=== PATIENT | male | born 1940 | race Two or more races ===

== ENCOUNTER 2016-09-29 08:35 | Inpatient (IN) | payer BC, MEDICARE ==
[2016-09-29] VITALS (7 sets, daily range): BP systolic 84–153; BP diastolic 47–80
[~2016-09-29] VITALS: Ht 170.2 cm; Wt 68.9 kg
[2016-09-29] MEDS ORDERED: METOPROLOL SUCC25 MG ORAL (09:06)
[2016-09-29] MEDS ORDERED: METFORMIN HCL850 M1 ORAL (09:06)
[2016-09-29] MEDS ORDERED: ASPIR-LOW81 MG ORAL (09:06)
[2016-09-29] MEDS ORDERED: PRAVASTATIN SOD20 M1 ORAL (09:06)
[2016-09-29] MEDS ORDERED: LORazepam Inj 2mg/ml 1ml IV ONE (09:15)
[2016-09-29 09:20] LABS: MEAN CORPUSCULAR HEMOGLOBIN 30.9 PG (27.0-31.0); MEAN CORPUSCULAR HGB CONC 34.2 G/DL (32.0-36.0); MEAN CORPUSCULAR VOLUME 90 FL (80-99); MEAN PLATELET VOLUME 8.2 FL (6.5-10.1); PLATELET COUNT 238 K/UL (150-450); RED BLOOD COUNT 5.17 M/UL (4.70-6.10); RED CELL DISTRIBUTION WIDTH 11.8 % (11.6-14.8)
[2016-09-29 09:29] LABS: ALANINE AMINOTRANSFERASE 140 U/L (3-41); ANION GAP 26 (5-15); ASPARTATE AMINO TRANSFERASE 87 U/L (5-40); CALCIUM 9.8 mg/dL (8.6-10.2); CARBON DIOXIDE 20 mEQ/L (20-30); CHLORIDE 85 mEQ/L (98-107); CREATININE 1.5 mg/dL (0.7-1.2); HEMOLYSIS 3; SODIUM 131 mEQ/L (135-145); TOTAL PROTEIN 7.9 g/dL (6.6-8.7)
[2016-09-29 09:32] LABS: TROPONIN I < 0.30 ng/mL (<=0.30)
[2016-09-29] MEDS ORDERED: Metoprolol 5mg/5ml Inj IVP STA (09:39)
--- NOTE | 2016-09-29 09:39 | Emergency Room Report ---
History of Present Illness General Chief Complaint: Abdominal Pain Source: Patient, Family Member Present Illness HPI 75 YO M with DM, HTN, HLD presents with a changing chief complaint. Patient is walk-in with . First endorses right side abd pain. While walking to stretcher, starts shaking, now c/o right sided chest pain, then left sided chest pain. Denies nausea/vomiitng, fever/chills, diarrhea, recent sick contacts, foreign travel. Did not take any meds this morning. Glucose is 230. Allergies: Coded Allergies: No Known Allergies (Unverified , 09/29/16) Patient History Past Medical History: DM, HTN, other - HLD Past Surgical History: none Pertinent Family History: none Social History: Denies: alcohol use, drug use, smoking Immunizations: UTD Reviewed Nursing Documentation: PMH: Agreed, PSxH: Agreed Nursing Documentation-PMH Past Medical History: No History, Except For Hx Hypertension: Yes Hx Diabetes: Yes Review of Systems All Other Systems: negative except mentioned in HPI Physical Exam Vital Signs Date Time Temp Pulse Resp B/P Pulse Ox O2 Delivery O2 Flow Rate FiO2 09/29/16 08:42 97.3 110 18 128/80 97 Room Air Sp02 EP Interpretation: reviewed, abnormal General Appearance: normal inspection, well appearing, alert, GCS 15, non-toxic , mild distress Head: normocephalic, atraumatic Eyes: bilateral eye EOMI, bilateral eye PERRL ENT: normal ENT inspection, hearing grossly normal, normal voice Neck: normal inspection, full range of motion, supple, no bony tend Respiratory: normal inspection, lungs clear, normal breath sounds, no respiratory distress, no retraction, no wheezing Cardiovascular #1: regular rate, rhythm, no edema, no gallop, no JVD, tachycardia Gastrointestinal: normal inspection, normal bowel sounds, soft, no guarding, no hernia, no pulsatile mass, no rebound, other - Right sided abd ttp. No rebound or guarding Rectal: deferred Genitourinary: no CVA tenderness Musculoskeletal: normal inspection, back normal, normal range of motion, Garrett' s Sign negative Neurologic: normal inspection, alert, oriented x3, responsive, cath lab tech III-XII nml as tested, motor strength/tone normal, speech normal Psychiatric: normal inspection, judgement/insight normal, mood/affect normal Procedures Critical Care Time Critical Care Time 45 minutes Care for 75 YOM with RUQ pain VS significant for tachycardia. Afebrile. Normotensive Labs: Leuks, elevated LFTs. Patient presumed septic. Possible acute chalo +/- cholangitis Care includes Abx, IVF, Consult with GenSurg and GI Care included sepsis order set for labs, 30cc/kg fluid resuscitation, initiation of IV antibiotics, tylenol PRN fever Care may include administration of vasopressors started to support failing circulatory system, includes frequent re-exam, interpretation of lab studies and consultation with hospitalist/marble setter. 45 minutes of critical care time was spent with this patient not including time spent performing separately reportable procedures. Medical Decision Making Medicare Attestation I Demarcus Hines MD hereby attest that the medical record entry for date of service, 08/07/16 accurately reflects signatures/notations that I made in my capacity as MD when I treated/diagnosed the above listed Medicare beneficiary. I attest that this information is true, accurate and complete to the best of my knowledge. I understand that any falsification, omission, or concealment of material fact may subject me to administrative, civil, or criminal liability. This patient warrants hospital admission for extreme of age and has a condition that cannot be treated as outpatient. Diagnostic Impression: Primary Impression: Abdominal pain Qualified Codes: R10.11 - Right upper quadrant pain Additional Impressions: Sepsis Qualified Codes: A41.9 - Sepsis, unspecified organism Cholecystitis Common bile duct (CBD) obstruction ER Course 75 YO M with chest pain/RUQ pain. Tachycardic to 130-140. Normotensive. No fever on rectal temp check. patient did NOT take oral metoprolol 25mg this morning DDx ACS, PNA, MSK pain for chest pain DDx colitis, appy, chalo for RUQ pain on exam PLAN: IV access, Labs, IVF, ECG, CTAP for RUQ pain, analgesia Will give patient's PO dose of metoprolol EKG Diagnostic Results Rate: tachycardiac Rhythm: NSR ST Segments: no acute changes ASA given to the pt in ED: No Rhythm Strip Diag. Results EP Interpretation: yes Rate: 120 Rhythm: NSR, other - PVCs Chest X-Ray Diagnostic Results EP Interpretation: Yes Findings: no consolidation, no effusion, no pneumothorax, no acute cardiopulmonary disease Number of Views: 1 Reevaluation Time: 09:58 Last Vital Signs Date Time Temp Pulse Resp B/P Pulse Ox O2 Delivery O2 Flow Rate FiO2 09/29/16 09:09 99.9 134 28 128/80 97 Room Air Status: improved Reevaluation Impression labs: elevated leuks. Normal H&H. Elevated LFTs LEAH Tachycardia improved s/p IV lopressor. Will also give patient's PO dose metoprolol ECG is sinus tach. Troponin 0. Low suspicion for ACS but will need serial troponin Concern now for biliary process, possibly acute chalo Will do CTAP without contrast given LEAH Empiric Vanc/zosyn for SIRS/sepsis 1110am CTAP: Acute chalo with CBD obstruction. CBD 10-12. ?cholangitis Call placed to [facility] and Dr Mosher at 11am 1120am: Dr Millan saw patient for GenSurg - planned possible chalo removal tomorrow Recommends GI remove stone first Endorsed to Dr Wood for admission at 1130am, tele bed. Consulted GI Dr Jarvis as requested by Dr Wood at 1134 for CB decompression Patient remains stable in the ED. Disposition: ADMITTED INPATIENT Condition: Critical Referrals: NOT CHOSEN IPA/,REFERRING (PCP) DEMARCUS HINES M.D. Sep 29, 2016 09:39
[2016-09-29 09:40] LABS: CKMB < 1.5 ng/mL (< 6.7)
[2016-09-29 09:51] LABS: BILIRUBIN,DIRECT 3.8 mg/dL (0.1-0.3)
[2016-09-29] MEDS ORDERED: Zosyn 3.375gm inj ONE (09:56)
[2016-09-29] MEDS ORDERED: Morphine Sulfate 2mg/ml Inj IVP ONE (10:00)
[2016-09-29] MEDS ORDERED: Vancomycin 1 GM in NS 275 ML IVPB ONE (10:00)
[2016-09-29] MEDS ORDERED: Metoprolol 25mg tab ORAL ONE (10:00)
[2016-09-29] MEDS ORDERED: Piperacillin/Tazobactam 3.375 GM in NS 110 ML IVPB ONE (10:00)
[2016-09-29] MEDS ORDERED: Vancomycin 1gm inj IVPB ONE (10:10)
[2016-09-29 10:14] LABS: BAND NEUTROPHILS % (MANUAL) 5 % (0-8); BASOPHILS % (MANUAL) 0 % (0-2); EOSINOPHILS % (MANUAL) 0 % (0-3); LYMPHOCYTES % (MANUAL) 3 % (20-45); NEUTROPHILS % (MANUAL) 85 % (45-75); PLATELET ESTIMATE ADEQUATE; PLATELET MORPHOLOGY NORMAL; TOTAL CELLS COUNTED 100
[2016-09-29 11:04] LABS: REFLEX LACTIC ACID YES OR NO YES
--- NOTE | 2016-09-29 11:11 | Diagnostic Imaging Report ---
Indication: Abdominal pain Technique: Continuous helical transaxial imaging of the abdomen and pelvis was obtained from the lung bases to the pubic symphysis during intravenous contrast administration. Coronal 2-D reformats were also obtained. Study obtained in a Siemens sensation [address] Total Dose length Product (DLP): [address] Dose Index Volume (CTDIvol): 17 mGy Comparison: None Findings: There is abnormal enhancement of the gallbladder wall which is slightly distended. There is pericholecystic soft tissue stranding indicative of inflammation. The common bile duct is dilated and there is some enhancement of the wall of the CBD and intrahepatic ducts. The intrahepatic ducts are only minimally distended. There are filling defects present in the distal part of the CBD suspicious for choledocholithiasis. CBD diameter is about 10-12 mm. There is no intrahepatic or extrahepatic abscess. There is no free air or free fluid. There is mild distention of small bowel loops in the upper abdomen probably reactive ileus. Normal retrocecal appendix demonstrated. Aorta and iliac arteries show moderate mural calcification. There is a small incidental left adrenal nodule 1.1 cm. This is probably an adenoma. Evaluation with MR suggested on a nonemergent basis. There is a cyst in the right kidney projecting posteriorly measuring 1.7 cm. There is no hydronephrosis. There is a tiny cyst in the anterior left kidney measuring 7 mm. No abnormalities of the spleen or pancreas are identified. Few diverticula are noted in the colon. Urinary bladder is nondistended. The prostate gland is prominent measuring 5.8 x 4.1 x 5.0 cm. Degenerative changes of the lumbar spine are noted. Vacuum phenomenon narrowing of some of the intervertebral discs and multilevel mild retrolisthesis noted at L2-3, 34 and L4-5. Minimal anterolisthesis at L5-S1. Pars interarticularis defect noted bilaterally at L5. Impression: Suspicion of choledocholithiasis in the distal CBD with mild biliary ductal dilatation. Superimposed cholangitis could be present. Acute cholecystitis also suspected as discussed above, probably on the basis of the CBD obstruction. Coexistent cystic duct obstruction could be present. Few, mildly distended jejunum in the epigastric region likely reactive ileus. Normal retrocecal appendix. Mild diverticulosis of the colon Atherosclerotic vascular disease 1.1 cm low-density left adrenal nodule probably adenoma. Suggest nonemergent outpatient MRI workup. 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 Grade 1 spondylolisthesis L5 on S1. Critical value communication. Findings were discussed via telephone with Dr. Leahy in the E.D. at 11 AM, 09/29/[address] scanner at [facility] is accredited by the [employer] and the scans are performed using protocols designed to limit radiation exposure to as low as reasonably achievable to attain images of sufficient resolution adequate for diagnostic evaluation.
[2016-09-29 11:41] LABS: APPEARANCE,URINE SLIGHTLY CLOUDY; KETONES,URINE NEGATIVE (NEGATIVE); LEUKOCYTE ESTERASE ,URINE 1+ (NEGATIVE); NITRITE,URINE POSITIVE (NEGATIVE); PH,URINE 5 (4.5-8.0); PROTEIN,URINE 3+ (NEGATIVE); UROBILINOGEN,URINE 8 MG/DL (0.0-1.0)
[2016-09-29 11:52] LABS: BACTERIA,URINE FEW /HPF; SQUAMOUS EPITHELIAL CELL,UR OCCASIONAL /LPF (NONE/OCC)
[2016-09-29 11:53] LABS: ICTOTEST POSITIVE
--- NOTE | 2016-09-29 12:21 | Consultation ---
Consult Note Assessment/Plan ID [facility] # [id number] ROSLYN KEN M.D. Sep 29, 2016 12:21
--- NOTE | 2016-09-29 12:24 | Consultation ---
History of Present Illness General Date patient seen: Sep 29, 2016 Chief Complaint: Abdominal Pain Reason for Consultation: acute cholecystitis; choledocholithiasis Present Illness HPI 75 year old male with multiple medical comorbidities including DM, HTN, dyslipidemia, presents to ED today complaining of worsening abdominal pain. as per patient, he was in his normal state of health until 4 days ago when he began to note some vague abdominal pain. since pain has worsened so he came to ED for evaluation. pain described as cramping pain that began in the mid abdomen and at times is focal in the RUQ. Currently feels as if its generalized to mid abdominal cramping. pain associated with nausea but no emesis. +flatus. last BM recent and normal. Has never had prior episodes that he can remember. When seen in ED was laying in gurney complaining of cramping that is mildly better after being given pain medication. CT scan ordered consistent with acute cholecystitis and likely choledocholithiasis. Leukocytosis of 20k. t bili >5. surgery called to evaluate. Allergies: Coded Allergies: No Known Allergies (Unverified , 09/29/16) Medication History Scheduled Aspirin* (Aspir-Low*), 81 MG ORAL DAILY, (Reported) Metformin Hcl* (Metformin Hcl*), 850 MG ORAL TID, (Reported) Metoprolol Succinate* (Metoprolol Succinate*), 25 MG ORAL BID, (Reported) Pravastatin Sod* (Pravastatin Sod*), 20 MG ORAL BEDTIME, (Reported) Patient History History Provided By: Patient Healthcare decision maker Resuscitation status Advanced Directive on File Past Medical/Surgical History Past Medical/Surgical History: (1) Cholecystitis (2) Sepsis (3) Abdominal pain (4) Common bile duct (CBD) obstruction Review of Systems Constitutional: Denies: chills, fever, malaise, no symptoms, other, see HPI, sweats, weakness Eye: Denies: acuity changes, blurred vision, discharge, double vision, eye pain , no symptoms, nose congestion, nose pain, other, see HPI, tearing ENT: Denies: ear discharge, ear pain, hearing loss, mouth pain, nasal discharge , no symptoms, nose congestion, nose pain, other, see HPI, throat pain, throat swelling Respiratory: Denies: ASHRAF, cough, no symptoms, orthopnea, other, see HPI, shortness of breath, sputum, stridor, wheezing Cardiovascular: Denies: PND, chest pain, edema, no symptoms, other, palpitations, see HPI, syncope Gastrointestinal: Reports: abdominal pain, nausea Genitourinary: Denies: discharge, dysuria, frequency, hematuria, incontinence, no symptoms, other, pain, retention, see HPI, urgency, vag bleed/dc Musculoskeletal: Denies: back pain, gout, joint pain, joint swelling, muscle pain, muscle stiffness, no symptoms, other, see HPI Skin: Denies: change in color, change in hair/nails, dryness, lesions, no symptoms, other, rash, see HPI Psychiatric: Denies: HI, SI, anxiety, depressed feelings, emotional problems, hallucinations, no symptoms, other, prior hx, see HPI Neurological: Denies: dizziness, focal weakness, headache, no symptoms, numbness, other, paresthesia, see HPI, seizure, syncope, tingling, tremors Endocrine: Denies: excessive sweating, flushing, increased thirst, increased urine, intolerance to temperature, no symptoms, other, see HPI, unexplained weight loss Hematologic/Lymphatic: Denies: anemia, blood clots, diathesis, easy bleeding, easy bruising, no symptoms, other, see HPI, swollen glands All Other Systems: negative except mentioned in HPI Physical Exam General Appearance: WD/WN, no apparent distress Lines, tubes and drains: peripheral HEENT: normocephalic, atraumatic Neck: non-tender, supple Respiratory/Chest: normal breath sounds, no respiratory distress, no accessory muscle use Cardiovascular/Chest: normal peripheral pulses, normal rate, regular rhythm Abdomen: normal bowel sounds, soft, no organomegaly, distended, tender Extremities: normal range of motion Neurologic: lumite injector II-XII grossly normal, no motor/sensory deficits Last 24 Hour Vital Signs Date Time Temp Pulse Resp B/P Pulse Ox O2 Delivery O2 Flow Rate FiO2 09/29/16 12:09 98.0 101 28 /47 97 Room Air 09/29/16 11:02 98.0 101 28 /47 97 Room Air 09/29/16 10:43 99.9 09/29/16 10:08 134 128/80 09/29/16 09:45 134 128/80 09/29/16 09:09 99.9 134 28 128/80 97 Room Air 09/29/16 08:42 97.3 110 18 128/80 97 Room Air Laboratory Tests Test 09/29/16 09:00 09/29/16 10:20 09/29/16 11:10 White Blood Count 20.0 K/UL (4.8-10.8) H Red Blood Count 5.17 M/UL (4.70-6.10) Hemoglobin 16.0 G/DL (14.2-18.0) Hematocrit 46.8 % (42.0-52.0) Mean Corpuscular Volume 90 FL (80-99) Mean Corpuscular Hemoglobin 30.9 PG (27.0-31.0) Mean Corpuscular Hemoglobin Concent 34.2 G/DL (32.0-36.0) Red Cell Distribution Width 11.8 % (11.6-14.8) Platelet Count 238 K/UL (150-450) Mean Platelet Volume 8.2 FL (6.5-10.1) Neutrophils (%) (Auto) % (45.0-75.0) Lymphocytes (%) (Auto) % (20.0-45.0) Monocytes (%) (Auto) % (1.0-10.0) Eosinophils (%) (Auto) % (0.0-3.0) Basophils (%) (Auto) % (0.0-2.0) Differential Total Cells Counted 100 Neutrophils % (Manual) 85 % (45-75) H Lymphocytes % (Manual) 3 % (20-45) L Monocytes % (Manual) 7 % (1-10) Eosinophils % (Manual) 0 % (0-3) Basophils % (Manual) 0 % (0-2) Band Neutrophils 5 % (0-8) Platelet Estimate Adequate Platelet Morphology Normal Red Blood Cell Morphology Normal Sodium Level 131 mEQ/L (135-145) L Potassium Level 4.0 mEQ/L (3.4-4.9) Chloride Level 85 mEQ/L (98-107) L Carbon Dioxide Level 20 mEQ/L (20-30) Anion Gap 26 (5-15) H Blood Urea Nitrogen 14 mg/dL (7-23) Creatinine 1.5 mg/dL (0.7-1.2) H Estimat Glomerular Filtration Rate mL/min (>60) Glucose Level 255 mg/dL (74-106) H Calcium Level 9.8 mg/dL (8.6-10.2) Total Bilirubin 5.3 mg/dL (0.0-1.2) H Direct Bilirubin 3.8 mg/dL (0.1-0.3) H Aspartate Amino Transf (AST/SGOT) 87 U/L (5-40) H Alanine Aminotransferase (ALT/SGPT) 140 U/L (3-41) H Alkaline Phosphatase 327 U/L (40-129) H Total Creatine Kinase 51 U/L (38-174) Creatine Kinase MB < 1.5 ng/mL (< 6.7) Creatine Kinase MB Relative Index Troponin I < 0.30 ng/mL (<=0.30) Pro-B-Type Natriuretic Peptide 3401 pg/mL (0-450) H Total Protein 7.9 g/dL (6.6-8.7) Albumin 4.0 g/dL (3.5-5.2) Globulin 3.9 g/dL Albumin/Globulin Ratio 1.0 (1.0-2.7) Lipase 48 U/L (< 60) Lactic Acid Level 7.10 mmol/L (0.66-2.22) H Urine Color Brown Urine Appearance Slightly cloudy Urine pH 5 (4.5-8.0) Urine Specific [place] 1.010 (1.005-1.035) Urine Protein 3+ (NEGATIVE) H Urine Glucose (UA) 1+ (NEGATIVE) H Urine Ketones Negative (NEGATIVE) Urine Occult Blood 4+ (NEGATIVE) H Urine Nitrite Positive (NEGATIVE) H Urine Bilirubin 3+ (NEGATIVE) H Urine Ictotest Positive Urine Urobilinogen 8 MG/DL (0.0-1.0) H Urine Leukocyte Esterase 1+ (NEGATIVE) H Urine RBC 2-4 /HPF (0 - 0) H Urine WBC 5-10 /HPF (0 - 0) H Urine Squamous Epithelial Cells Occasional /LPF Urine Bacteria Few /HPF (NONE) Height (Feet): 5 Height (Inches): 2.00 Weight (Pounds): 150 Assessment/Plan Problem List: (1) Cholecystitis ICD Codes: K81.9 - Cholecystitis, unspecified SNOMED: 47958763, 89426166 (2) Common bile duct (CBD) obstruction ICD Codes: K83.1 - Obstruction of bile duct SNOMED: 45959918, [id number] (3) Abdominal pain ICD Codes: R10.9 - Unspecified abdominal pain SNOMED: 93227084 Qualifiers: Qualified Codes: R10.11 - Right upper quadrant pain (4) Sepsis ICD Codes: A41.9 - Sepsis, unspecified organism SNOMED: 06563324 Qualifiers: Qualified Codes: A41.9 - Sepsis, unspecified organism Assessment/Plan 75 M acute cholecystitis and likely choledocholithiasis. Afebrile, HD stable, leukocytosis, abnormal LFT's. CT findings as above. Exam as above. Recommend GI consultation - ?ERCP NPO with IV fluids IV Abx Trend labs ( WBC, LFT's) Will await GI input. Need to ensure clear CBD to schedule for cholecystectomy during this hospitalization. Thank you for this consultation. will follow with you. Pedrito Millan MD Sep 29, 2016 12:24
--- NOTE | 2016-09-29 12:45 | GI Initial Consult Note ---
Diaz,Sweta Leopoldo N.PJules 09/29/16 1245: History of Present Illness General Date patient seen: Sep 29, 2016 Time patient seen: 12:42 Reason for Hospitalization: Abdominal Pain Referring physician: BHARATH JONES Reason for Consultation: acute cholecystitis; choledocholithiasis Present Illness HPI 75 year old male with multiple medical comorbidities including DM, HTN, dyslipidemia, presents to ED today complaining of worsening abdominal pain. as per patient, he was in his normal state of health until 4 days ago when he began to note some vague abdominal pain. since pain has worsened so he came to ED for evaluation. pain described as cramping pain that began in the mid abdomen and at times is focal in the RUQ. Currently feels as if its generalized to mid abdominal cramping. pain associated with nausea but no emesis. +flatus. last BM recent and normal. Has never had prior episodes that he can remember. When seen in ED was laying in gurney complaining of cramping that is mildly better after being given pain medication. CT scan ordered consistent with acute cholecystitis and likely choledocholithiasis. Leukocytosis of 20k. t bili >5. surgery called to evaluate. GI CONSULT: HPI as noted above. GI consulted for choledocholithiasis evaluation. APCT reviewed Suspicion of choledocholithiasis in the distal CBD with mild biliary ductal dilatation, 10-12mm. Pt presents with abdominal pain, leukocytosis, elevated total bilirubin and abnormal LFTs. Pt seen on floor, A&Ox4 with by bedside c/o of tolerable pain at this time. Procedure: CT Abdomen Pelvis w/Contrast Indication: Abdominal pain Findings: There is abnormal enhancement of the gallbladder wall which is slightly distended. There is pericholecystic soft tissue stranding indicative of inflammation. The common bile duct is dilated and there is some enhancement of the wall of the CBD and intrahepatic ducts. The intrahepatic ducts are only minimally distended. There are filling defects present in the distal part of the CBD suspicious for choledocholithiasis. CBD diameter is about 10-12 mm. There is no intrahepatic or extrahepatic abscess. There is no free air or free fluid. There is mild distention of small bowel loops in the upper abdomen probably reactive ileus. Normal retrocecal appendix demonstrated. Aorta and iliac arteries show moderate mural calcification. There is a small incidental left adrenal nodule 1.1 cm. This is probably an adenoma. Evaluation with MR suggested on a nonemergent basis. There is a cyst in the right kidney projecting posteriorly measuring 1.7 cm. There is no hydronephrosis. There is a tiny cyst in the anterior left kidney measuring 7 mm. No abnormalities of the spleen or pancreas are identified. Few diverticula are noted in the colon. Urinary bladder is nondistended. The prostate gland is prominent measuring 5.8 x 4.1 x 5.0 cm. Degenerative changes of the lumbar spine are noted. Vacuum phenomenon narrowing of some of the intervertebral discs and multilevel mild retrolisthesis noted at L2-3, 34 and L4-5. Minimal anterolisthesis at L5- S1. Pars interarticularis defect noted bilaterally at L5. Impression: Suspicion of choledocholithiasis in the distal CBD with mild biliary ductal dilatation. Superimposed cholangitis could be present. Acute cholecystitis also suspected as discussed above, probably on the basis of the CBD obstruction. Coexistent cystic duct obstruction could be present. Few, mildly distended jejunum in the epigastric region likely reactive ileus. Normal retrocecal appendix. Mild diverticulosis of the colon Atherosclerotic vascular disease 1.1 cm low-density left adrenal nodule probably adenoma. Suggest nonemergent outpatient MRI workup. 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 Grade 1 spondylolisthesis L5 on S1. Home Meds Reported Medications Aspirin* (ASPIR-LOW*) 81 Mg Tablet.dr, 81 MG ORAL DAILY, TAB 09/29/16 Metoprolol Succinate* (METOPROLOL SUCCINATE*) 25 Mg Tab.er.24h, 25 MG ORAL BID, TAB 09/29/16 Pravastatin Sod* (PRAVASTATIN SOD*) 20 Mg Tablet, 20 MG ORAL BEDTIME, TAB 09/29/16 Metformin Hcl* (METFORMIN HCL*) 850 Mg Tablet, 850 MG ORAL TID, TAB 09/29/16 Med list reviewed/reconciled: Yes Allergies: Coded Allergies: No Known Allergies (Unverified , 09/29/16) Patient History History Provided By: Patient, Medical Record PMH Narrative Past Medical History: DM, HTN, other - HLD Past Surgical History: none Pertinent Family History: none Social History: Denies: alcohol use, drug use, smoking Immunizations: UTD Reviewed Nursing Documentation: PMH: Agreed, PSxH: Agreed Nursing Documentation-PMH Past Medical History: No History, Except For Hx Hypertension: Yes Hx Diabetes: Yes Social History: Denies: alcohol use, drug use, other, smoking Review of Systems All Other Systems: negative except mentioned in HPI Physical Exam Vital Signs Date Time Temp Pulse Resp B/P Pulse Ox O2 Delivery O2 Flow Rate FiO2 09/29/16 08:42 97.3 110 18 128/80 97 Room Air Sp02 EP Interpretation: reviewed Labs Laboratory Tests Test 09/29/16 09:00 09/29/16 10:20 09/29/16 11:10 White Blood Count 20.0 K/UL (4.8-10.8) H Red Blood Count 5.17 M/UL (4.70-6.10) Hemoglobin 16.0 G/DL (14.2-18.0) Hematocrit 46.8 % (42.0-52.0) Mean Corpuscular Volume 90 FL (80-99) Mean Corpuscular Hemoglobin 30.9 PG (27.0-31.0) Mean Corpuscular Hemoglobin Concent 34.2 G/DL (32.0-36.0) Red Cell Distribution Width 11.8 % (11.6-14.8) Platelet Count 238 K/UL (150-450) Mean Platelet Volume 8.2 FL (6.5-10.1) Neutrophils (%) (Auto) % (45.0-75.0) Lymphocytes (%) (Auto) % (20.0-45.0) Monocytes (%) (Auto) % (1.0-10.0) Eosinophils (%) (Auto) % (0.0-3.0) Basophils (%) (Auto) % (0.0-2.0) Differential Total Cells Counted 100 Neutrophils % (Manual) 85 % (45-75) H Lymphocytes % (Manual) 3 % (20-45) L Monocytes % (Manual) 7 % (1-10) Eosinophils % (Manual) 0 % (0-3) Basophils % (Manual) 0 % (0-2) Band Neutrophils 5 % (0-8) Platelet Estimate Adequate Platelet Morphology Normal Red Blood Cell Morphology Normal Sodium Level 131 mEQ/L (135-145) L Potassium Level 4.0 mEQ/L (3.4-4.9) Chloride Level 85 mEQ/L (98-107) L Carbon Dioxide Level 20 mEQ/L (20-30) Anion Gap 26 (5-15) H Blood Urea Nitrogen 14 mg/dL (7-23) Creatinine 1.5 mg/dL (0.7-1.2) H Estimat Glomerular Filtration Rate mL/min (>60) Glucose Level 255 mg/dL (74-106) H Calcium Level 9.8 mg/dL (8.6-10.2) Total Bilirubin 5.3 mg/dL (0.0-1.2) H Direct Bilirubin 3.8 mg/dL (0.1-0.3) H Aspartate Amino Transf (AST/SGOT) 87 U/L (5-40) H Alanine Aminotransferase (ALT/SGPT) 140 U/L (3-41) H Alkaline Phosphatase 327 U/L (40-129) H Total Creatine Kinase 51 U/L (38-174) Creatine Kinase MB < 1.5 ng/mL (< 6.7) Creatine Kinase MB Relative Index Troponin I < 0.30 ng/mL (<=0.30) Pro-B-Type Natriuretic Peptide 3401 pg/mL (0-450) H Total Protein 7.9 g/dL (6.6-8.7) Albumin 4.0 g/dL (3.5-5.2) Globulin 3.9 g/dL Albumin/Globulin Ratio 1.0 (1.0-2.7) Lipase 48 U/L (< 60) Lactic Acid Level 7.10 mmol/L (0.66-2.22) H Urine Color Brown Urine Appearance Slightly cloudy Urine pH 5 (4.5-8.0) Urine Specific [place] 1.010 (1.005-1.035) Urine Protein 3+ (NEGATIVE) H Urine Glucose (UA) 1+ (NEGATIVE) H Urine Ketones Negative (NEGATIVE) Urine Occult Blood 4+ (NEGATIVE) H Urine Nitrite Positive (NEGATIVE) H Urine Bilirubin 3+ (NEGATIVE) H Urine Ictotest Positive Urine Urobilinogen 8 MG/DL (0.0-1.0) H Urine Leukocyte Esterase 1+ (NEGATIVE) H Urine RBC 2-4 /HPF (0 - 0) H Urine WBC 5-10 /HPF (0 - 0) H Urine Squamous Epithelial Cells Occasional /LPF Urine Bacteria Few /HPF (NONE) General Appearance: well appearing, no apparent distress Head: normocephalic EENT: PERRL/EOMI Neck: supple Respiratory: normal breath sounds, no respiratory distress Cardiovascular: normal rate Gastrointestinal: normal inspection, soft, tenderness - RUQ Rectal: deferred Musculoskeletal: normal inspection, back normal Neurologic: alert, oriented x3, responsive Psychiatric: normal inspection, judgement/insight normal, memory normal Skin: normal inspection, normal color, no rash Lymphatic: normal inspection, no adenopathy Current Medications Current Medications Medications (Trade) Dose Ordered Sig/Madina Route PRN Reason Start Time Stop Time Status Last Admin Dose Admin Piperacillin Sod/ Tazobactam Sod/ Dextrose (Zosyn/D5W) 110 ml @ 27.5 mls/hr EVERY 8 HOURS IVPB 09/29/16 14:00 10/04/16 13:59 UNV GI: Plan Problems: (1) Leukocytosis (2) LFTs abnormal (3) Abdominal pain (4) Common bile duct (CBD) obstruction (5) Sepsis (6) Tachycardia (7) Cholecystitis Plan pt scheduled for ERCP sunday, will consider procedure if urgent - maintain NPO + IVFs ordered cefepime + flagyl IV H2 monitor VS repeat LFTs fu labs Discussed with Dr. Jarvis. Thank you for referring this patient, we will follow. WELLINGTON JARVIS 10/02/16 0818: History of Present Illness General Reason for Hospitalization: Abdominal Pain Present Illness Home Meds Reported Medications Aspirin* (ASPIR-LOW*) 81 Mg Tablet.dr, 81 MG ORAL DAILY, TAB 09/29/16 Metoprolol Succinate* (METOPROLOL SUCCINATE*) 25 Mg Tab.er.24h, 25 MG ORAL BID, TAB 09/29/16 Pravastatin Sod* (PRAVASTATIN SOD*) 20 Mg Tablet, 20 MG ORAL BEDTIME, TAB 09/29/16 Metformin Hcl* (METFORMIN HCL*) 850 Mg Tablet, 850 MG ORAL TID, TAB 09/29/16 Allergies: Coded Allergies: No Known Allergies (Unverified , 09/29/16) GI: Plan Plan The patient was seen and examined at bedside and all new and available data was reviewed in the patients chart. I agree with the above findings, impression and plan. (Patient seen earlier today. Signature stamp does not reflect patient encounter time.). -Wellington Diaz,[facility] Leopoldo N.PJules Sep 29, 2016 12:45 WELLINGTON JARVIS Oct 02, 2016 08:18
[2016-09-29 14:24] LABS: TROPONIN I < 0.30 ng/mL (<=0.30)
[2016-09-29 14:39] LABS: CHOLESTEROL/HDL RATIO 10.6 (3.3-4.4)
[2016-09-29 14:50] LABS: THYROID STIMULATING HORMONE 2.23 uIU/mL (0.300-4.500)
[2016-09-29] MEDS: NovoLOG Insulin Flexpen SUBQ SCH ×2 (16:30→21:00)
[2016-09-29] MEDS: metroNIDAZOLE 500mg 100 ML IVPB SCH (17:29)
[2016-09-29] MEDS: D5NS 1,000 ML IV SCH (17:30)
[2016-09-29] MEDS: Piperacillin/Tazobactam 3.375 GM in D5W 110 ML IVPB SCH (19:14)
[2016-09-29 19:28] LABS: TROPONIN I < 0.30 ng/mL (<=0.30)
[2016-09-29] MEDS: Cefepime HCl 1 GM in D5W 55 ML IVPB SCH (21:43)
[2016-09-29] MEDS: Famotidine 20 MG/ 2ML VIAL IVP SCH (21:43)
[2016-09-29] MEDS: Heparin 5000 units/ml inj SUBQ SCH (21:46)
--- NOTE | 2016-09-29 21:57 | Consultation ---
DATE OF CONSULTATION: 09/29/2016 INFECTIOUS DISEASE CONSULTATION CONSULTING PHYSICIAN: Shay Velez M.D REFERRING PHYSICIAN: Charles Wood M.D. REASON FOR CONSULTATION: Evaluation of the patient for cholangitis, cholecystitis, fever, and antibiotic management. HISTORY OF PRESENT ILLNESS: The patient is a 75-year-old male with multiple medical problems as listed below who came in to the hospital with abdominal pain x4 days. CT scan of the abdomen showed evidence of cholecystitis, possible cholangitis. Infectious disease consultation has been requested for further evaluation of the patient and antibiotic management. PAST MEDICAL HISTORY: Significant for CAD, hyperlipidemia, diabetes, hypertension, and history of myocardial infarction in the past. SOCIAL HISTORY: The patient is an ex-smoker. FAMILY HISTORY: Noncontributory. REVIEW OF SYSTEMS: HEENT: No recent change in vision or hearing. Pulmonary: No cough or shortness of breath. Cardiovascular: No chest pain or palpitation. Gastrointestinal/Abdomen: As mentioned above. Genitourinary: No dysuria. Neurologic: No seizure. MEDICATIONS: IV Zosyn. PHYSICAL EXAMINATION: VITAL SIGNS: Temperature 98 degrees, blood pressure 85/58, pulse 106, and respiratory rate 20. HEENT: Mild pale conjunctivae. No icterus. NECK: No lymphadenopathy. CHEST: Coarse breathing sounds. HEART: S1 and S2. ABDOMEN: Soft. Mild tenderness. NEUROLOGIC: He is awake and alert. LABORATORY DATA: White blood cells 20, hemoglobin 16, and platelets 238,000. UA, 5 to 10 white blood cells and 2 to 4 red blood cells. BUN 14 and creatinine 0.5. AST 87, ALT of 142, and alkaline phosphatase 227. CT scan abdomen as mentioned above. ASSESSMENT: The patient is a 75-year-old male with multiple medical problems, who has been admitted to this medical center because of cholangitis. The patient would benefit from coverage of anaerobes and gram negatives to stabilize and later the patient would need further gastrointestinal/surgical intervention. PLAN: 1. We will start the patient on IV Zosyn. 2. Monitor CBC. 3. Monitor BMP. 4. Monitor blood culture. 5. We will follow GI and surgical recommendations. 6. Based on the patient's clinical course and labs, we will do further recommendation. Thank you, Dr. Wood, for allowing me to participate in the care of this patient. I will follow the patient with you during this hospitalization. Shay Velez M.D. DR: ALFREDO JOB#: [id number] CC:
[2016-09-30] VITALS (7 sets, daily range): BP systolic 89–130; BP diastolic 49–74
[2016-09-30] MEDS: metroNIDAZOLE 500mg 100 ML IVPB SCH ×2 (00:16→08:33)
[2016-09-30] MEDS: Piperacillin/Tazobactam 3.375 GM in D5W 110 ML IVPB SCH ×3 (02:21→17:18)
[2016-09-30] MEDS: D5NS 1,000 ML IV SCH ×2 (03:20→17:17)
[2016-09-30] MEDS: NovoLOG Insulin Flexpen SUBQ SCH ×4 (06:22→20:17)
[2016-09-30 07:17] LABS: BASOPHILS % (AUTO) 0.3 % (0.0-2.0); EOSINOPHILS % (AUTO) 0.5 % (0.0-3.0); MEAN CORPUSCULAR HEMOGLOBIN 31.8 PG (27.0-31.0); MEAN CORPUSCULAR HGB CONC 35.6 G/DL (32.0-36.0); MEAN CORPUSCULAR VOLUME 89 FL (80-99); MEAN PLATELET VOLUME 9.1 FL (6.5-10.1); MONOCYTES % (AUTO) 6.7 % (1.0-10.0); NEUTROPHILS % (AUTO) 84.6 % (45.0-75.0); PLATELET COUNT 138 K/UL (150-450); RED CELL DISTRIBUTION WIDTH 11.9 % (11.6-14.8); WHITE BLOOD COUNT 8.5 K/UL (4.8-10.8)
[2016-09-30 07:47] LABS: TROPONIN I < 0.30 ng/mL (<=0.30)
[2016-09-30 07:53] LABS: ALANINE AMINOTRANSFERASE 108 U/L (3-41); ALBUMIN/GLOBULIN RATIO 0.8 (1.0-2.7); ANION GAP 16 (5-15); ASPARTATE AMINO TRANSFERASE 80 U/L (5-40); CALCIUM 8.4 mg/dL (8.6-10.2); CARBON DIOXIDE 20 mEQ/L (20-30); CHLORIDE 100 mEQ/L (98-107); HEMOLYSIS 8; POTASSIUM 3.5 mEQ/L (3.4-4.9); SODIUM 136 mEQ/L (135-145); TOTAL PROTEIN 5.4 g/dL (6.6-8.7)
--- NOTE | 2016-09-30 08:29 | General Progress Note ---
Progress Note Progress Note Patient seen for abdominal pain, hyperbilirubinemia CT indicates that pt has acute cholecystitis and choledochollithiasis. Seen by GI who plans to perform ERCP on Sunday. Would then need subsequent cholecystectomy Feels better today. Vital Sign - Last 24 Hours 09/29/16 09/29/16 09/29/16 09/29/16 08:42 09:09 09:45 10:08 Temp 97.3 99.9 Pulse 110 134 134 134 Resp B/P 128/80 128/80 128/80 128/80 Pulse Ox 97 97 O2 Delivery Room Air Room Air 09/29/16 09/29/16 09/29/16 09/29/16 10:43 11:02 12:09 12:23 Temp 99.9 98.0 98.0 98.2 Pulse 101 101 106 Resp 20 B/P 95/47 95/47 85/53 Pulse Ox 97 97 96 O2 Delivery Room Air Room Air Room Air 09/29/16 09/29/16 09/29/16 09/29/16 12:30 14:50 16:00 16:00 Temp 97.5 Pulse 107 109 101 106 Resp 21 B/P 88/48 84/51 Pulse Ox 94 O2 Delivery Room Air 09/29/16 09/29/16 09/29/16 09/30/16 17:30 20:00 20:00 00:00 Temp 96.8 Pulse 84 80 84 Resp 20 B/P 98/59 98/62 Pulse Ox 95 O2 Delivery Room Air 09/30/16 09/30/16 09/30/16 09/30/16 00:15 04:00 04:00 07:51 Temp 97.0 98.0 97.1 Pulse 66 67 67 63 Resp 20 20 B/P 95/57 95/58 89/49 Pulse Ox 94 95 96 O2 Delivery Room Air Room Air Intake and Output 09/29/16 09/29/16 09/30/16 15:00 23:00 07:00 Intake Total 120 ml 301.0 ml 585.0 ml Output Total 300 ml 2 ml 400 ml Balance -180 ml 299.0 ml 185.0 ml Abdomen soft, minimal tenderness.No surgical scars. Labs Test 09/29/16 09:00 09/29/16 10:20 09/29/16 11:10 09/29/16 11:50 White Blood Count 20.0 K/UL (4.8-10.8) Red Blood Count 5.17 M/UL (4.70-6.10) Hemoglobin 16.0 G/DL (14.2-18.0) Hematocrit 46.8 % (42.0-52.0) Mean Corpuscular Volume 90 FL (80-99) Mean Corpuscular Hemoglobin 30.9 PG (27.0-31.0) Mean Corpuscular Hemoglobin Concent 34.2 G/DL (32.0-36.0) Red Cell Distribution Width 11.8 % (11.6-14.8) Platelet Count 238 K/UL (150-450) Mean Platelet Volume 8.2 FL (6.5-10.1) Neutrophils (%) (Auto) % (45.0-75.0) Lymphocytes (%) (Auto) % (20.0-45.0) Monocytes (%) (Auto) % (1.0-10.0) Eosinophils (%) (Auto) % (0.0-3.0) Basophils (%) (Auto) % (0.0-2.0) Differential Total Cells Counted 100 Neutrophils % (Manual) 85 % (45-75) Lymphocytes % (Manual) 3 % (20-45) Monocytes % (Manual) 7 % (1-10) Eosinophils % (Manual) 0 % (0-3) Basophils % (Manual) 0 % (0-2) Band Neutrophils 5 % (0-8) Platelet Estimate Adequate Platelet Morphology Normal Red Blood Cell Morphology Normal Sodium Level 131 mEQ/L (135-145) Potassium Level 4.0 mEQ/L (3.4-4.9) Chloride Level 85 mEQ/L (98-107) Carbon Dioxide Level 20 mEQ/L (20-30) Anion Gap 26 (5-15) Blood Urea Nitrogen 14 mg/dL (7-23) Creatinine 1.5 mg/dL (0.7-1.2) Estimat Glomerular Filtration Rate mL/min (>60) Glucose Level 255 mg/dL (74-106) Calcium Level 9.8 mg/dL (8.6-10.2) Total Bilirubin 5.3 mg/dL (0.0-1.2) Direct Bilirubin 3.8 mg/dL (0.1-0.3) Aspartate Amino Transf (AST/SGOT) 87 U/L (5-40) Alanine Aminotransferase (ALT/SGPT) 140 U/L (3-41) Alkaline Phosphatase 327 U/L (40-129) Total Creatine Kinase 51 U/L (38-174) Creatine Kinase MB < 1.5 ng/mL (< 6.7) Creatine Kinase MB Relative Index Troponin I < 0.30 ng/mL (<=0.30) Pro-B-Type Natriuretic Peptide 3401 pg/mL (0-450) Total Protein 7.9 g/dL (6.6-8.7) Albumin 4.0 g/dL (3.5-5.2) Globulin 3.9 g/dL Albumin/Globulin Ratio 1.0 (1.0-2.7) Lipase 48 U/L (< 60) Lactic Acid Level 7.10 mmol/L (0.66-2.22) 3.90 mmol/L (0.66-2.22) Urine Color Brown Urine Appearance Slightly cloudy Urine pH 5 (4.5-8.0) Urine Specific [place] 1.010 (1.005-1.035) Urine Protein 3+ (NEGATIVE) Urine Glucose (UA) 1+ (NEGATIVE) Urine Ketones Negative (NEGATIVE) Urine Occult Blood 4+ (NEGATIVE) Urine Nitrite Positive (NEGATIVE) Urine Bilirubin 3+ (NEGATIVE) Urine Ictotest Positive Urine Urobilinogen 8 MG/DL (0.0-1.0) Urine Leukocyte Esterase 1+ (NEGATIVE) Urine RBC 2-4 /HPF (0 - 0) Urine WBC 5-10 /HPF (0 - 0) Urine Squamous Epithelial Cells Occasional /LPF Urine Bacteria Few /HPF (NONE) Test 09/29/16 13:55 09/29/16 19:00 09/30/16 06:10 Troponin I < 0.30 ng/mL (<=0.30) < 0.30 ng/mL (<=0.30) < 0.30 ng/mL (<=0.30) Triglycerides Level 149 mg/dL (< 150) Cholesterol Level 95 mg/dL (< 200) LDL Cholesterol 56 mg/dL (60-99) HDL Cholesterol 9 mg/dL (> 60) Cholesterol/HDL Ratio 10.6 (3.3-4.4) Thyroid Stimulating Hormone (TSH) 2.230 uIU/mL (0.300-4.500) White Blood Count 8.5 K/UL (4.8-10.8) Red Blood Count 3.70 M/UL (4.70-6.10) Hemoglobin 11.8 G/DL (14.2-18.0) Hematocrit 33.1 % (42.0-52.0) Mean Corpuscular Volume 89 FL (80-99) Mean Corpuscular Hemoglobin 31.8 PG (27.0-31.0) Mean Corpuscular Hemoglobin Concent 35.6 G/DL (32.0-36.0) Red Cell Distribution Width 11.9 % (11.6-14.8) Platelet Count 138 K/UL (150-450) Mean Platelet Volume 9.1 FL (6.5-10.1) Neutrophils (%) (Auto) 84.6 % (45.0-75.0) Lymphocytes (%) (Auto) 8.0 % (20.0-45.0) Monocytes (%) (Auto) 6.7 % (1.0-10.0) Eosinophils (%) (Auto) 0.5 % (0.0-3.0) Basophils (%) (Auto) 0.3 % (0.0-2.0) Sodium Level 136 mEQ/L (135-145) Potassium Level 3.5 mEQ/L (3.4-4.9) Chloride Level 100 mEQ/L (98-107) Carbon Dioxide Level 20 mEQ/L (20-30) Anion Gap 16 (5-15) Blood Urea Nitrogen 17 mg/dL (7-23) Creatinine 1.0 mg/dL (0.7-1.2) Estimat Glomerular Filtration Rate mL/min (>60) Glucose Level 185 mg/dL (74-106) Calcium Level 8.4 mg/dL (8.6-10.2) Total Bilirubin 3.6 mg/dL (0.0-1.2) Aspartate Amino Transf (AST/SGOT) 80 U/L (5-40) Alanine Aminotransferase (ALT/SGPT) 108 U/L (3-41) Alkaline Phosphatase 215 U/L (40-129) Total Protein 5.4 g/dL (6.6-8.7) Albumin 2.5 g/dL (3.5-5.2) Globulin 2.9 g/dL Albumin/Globulin Ratio 0.8 (1.0-2.7) Clinically stable. p perlita as above NATHANIEL GOMEZ Sep 30, 2016 08:28
[2016-09-30 08:44] LABS: BILIRUBIN,DIRECT 2.4 mg/dL (0.1-0.3)
[2016-09-30] MEDS: Aspirin Baby 81mg ORAL SCH (09:19)
[2016-09-30] MEDS: Famotidine 20 MG/ 2ML VIAL IVP SCH ×2 (09:19→20:15)
[2016-09-30] MEDS: Cefepime HCl 1 GM in D5W 55 ML IVPB SCH (09:19)
[2016-09-30] MEDS: Heparin 5000 units/ml inj SUBQ SCH ×2 (09:20→21:00)
--- NOTE | 2016-09-30 09:56 | General Progress Note ---
Assessment/Plan Status: stable Assessment/Plan 1- Sever Sepsis: controlled 2- Sepsis 3- Cholangitis/ acute cholecystitis 4- Abn BNP 5- Gi-DVT Plan: GI/ DVT prphylaxia Subjective ROS Limited/Unobtainable: Yes Constitutional: Reports: no symptoms HEENT: Reports: no symptoms Cardiovascular: Reports: no symptoms Allergies: Coded Allergies: No Known Allergies (Unverified , 09/29/16) Objective Last 24 Hour Vital Signs Date Time Temp Pulse Resp B/P Pulse Ox O2 Delivery O2 Flow Rate FiO2 09/30/16 08:30 95/56 09/30/16 07:51 97.1 63 20 89/49 96 Room Air 09/30/16 04:00 98.0 67 20 95/58 95 Room Air 09/30/16 04:00 67 09/30/16 00:15 97.0 66 20 95/57 94 09/30/16 00:00 84 09/29/16 20:00 96.8 80 20 98/62 95 Room Air 09/29/16 20:00 84 09/29/16 17:30 98/59 09/29/16 16:00 106 09/29/16 16:00 97.5 101 21 84/51 94 Room Air 09/29/16 14:50 109 88/48 09/29/16 12:30 107 09/29/16 12:23 98.2 106 20 85/53 96 Room Air 09/29/16 12:09 98.0 101 28 95/47 97 Room Air 09/29/16 11:02 98.0 101 28 95/47 97 Room Air 09/29/16 10:43 99.9 09/29/16 10:08 134 128/80 Intake and Output 09/29/16 09/30/16 19:00 07:00 Intake Total 258 ml 748.0 ml Output Total 300 ml 402 ml Balance -42 ml 346.0 ml Intake Oral 120 ml IV Total 138 ml 748.0 ml Output Urine Total 300 ml 402 ml # Voids 2 # Bowel Movements 1 Laboratory Tests 09/29/16 10:20: Lactic Acid Level 7.10H 09/29/16 11:10: Urine Color Brown, Urine Appearance Slightly cloudy, Urine pH 5, Urine Specific [place] 1.010, Urine Protein 3+H, Urine Glucose (UA) 1+H, Urine Ketones Negative , Urine Occult Blood 4+H, Urine Nitrite PositiveH, Urine Bilirubin 3+H, Urine Ictotest Positive, Urine Urobilinogen 8H, Urine Leukocyte Esterase 1+H, Urine RBC 2-4H, Urine WBC 5-10H, Urine Squamous Epithelial Cells Occasional, Urine Bacteria Few 09/29/16 11:50: Lactic Acid Level 3.90H 09/29/16 13:55: Troponin I < 0.30, Triglycerides Level 149, Cholesterol Level 95, LDL Cholesterol 56L, HDL Cholesterol 9, Cholesterol/HDL Ratio 10.6H, Thyroid Stimulating Hormone (TSH) 2.230 09/29/16 19:00: Troponin I < 0.30 09/30/16 06:10: Troponin I < 0.30, White Blood Count 8.5#, Red Blood Count 3.70L, Hemoglobin 11.8L, Hematocrit 33.1L, Mean Corpuscular Volume 89, Mean Corpuscular Hemoglobin 31.8H, Mean Corpuscular Hemoglobin Concent 35.6, Red Cell Distribution Width 11.9, Platelet Count 138L, Mean Platelet Volume 9.1, Neutrophils (%) (Auto) 84.6H, Lymphocytes (%) (Auto) 8.0L, Monocytes (%) (Auto) 6.7, Eosinophils (%) (Auto) 0.5, Basophils (%) (Auto) 0.3, Sodium Level 136, Potassium Level 3.5, Chloride Level 100, Carbon Dioxide Level 20, Anion Gap 16H , Blood Urea Nitrogen 17, Creatinine 1.0, Estimat Glomerular Filtration Rate , Glucose Level 185H, Calcium Level 8.4L, Total Bilirubin 3.6H, Direct Bilirubin 2.4H, Aspartate Amino Transf (AST/SGOT) 80H, Alanine Aminotransferase (ALT/SGPT ) 108H, Alkaline Phosphatase 215H, Total Protein 5.4#L, Albumin 2.5L, Globulin 2.9, Albumin/Globulin Ratio 0.8L Height (Feet): 5 Height (Inches): 2.00 Weight (Pounds): 150 General Appearance: alert EENT: PERRL/EOMI Neck: supple Cardiovascular: normal rate Abdomen: soft Extremities: non-tender Neurologic: edge inker II-XII grossly normal Charles Wood MD Sep 30, 2016 09:56
--- NOTE | 2016-09-30 12:07 | History and Physical Report ---
DATE OF ADMISSION: 09/29/2016 SOURCE OF INFORMATION: The patient and EMR. HISTORY OF PRESENT ILLNESS: The patient is a pleasant 75-year-old, male with history of coronary artery disease, diabetes who presented with the worsening pain in the abdomen for the last five days prior to admission. Pain is localized to the epigastric area with radiation to the right upper quadrant for the last four days. The patient reported that he came to the hospital with chest pain. At the initial evaluation in the emergency room, blood pressure was recorded low. The patient was resuscitated with the intravenous fluids. Initial imaging showed evidence of cholecystitis and possible cholangitis. PAST MEDICAL HISTORY: Hyperlipidemia, diabetes mellitus, coronary artery disease, and history of myocardial infarction. SOCIAL HISTORY: Denies history of illicit drug abuse. Denies history of alcohol abuse. Positive for tobacco smoking at least a quarter of a packet a week reported as quit couple years ago. He is . FAMILY HISTORY: Noncontributory. REVIEW OF SYSTEMS: Positive for nausea and vomitus. Negative for diarrhea. Negative for headache or blurry vision. Negative for abnormal bleeding. Negative for severe pain and swelling in the extremities. MEDICATIONS: Hospital medications were reviewed and reconciled including but not limited to Zosyn, atorvastatin, sliding scale insulin, and cefepime. ALLERGIES: NKDA. CODE STATUS: Full code. PHYSICAL EXAMINATION: VITAL SIGNS: Blood pressure 90/40, temperature 98.0 degrees, pulse rate 100, pulse oximetry 97% on room air, respiratory rate 28. HEENT: Head and neck atraumatic and normocephalic. CHEST: Clear to auscultation. HEART: S1 and S2. Regular rate and rhythm. Tachycardic. ABDOMEN: Tender. No rebound tenderness. Soft. Positive for tenderness on deep palpation in all abdomen. NEUROLOGY: The patient is awake, alert, and oriented x3. MUSCULOSKELETAL: No gross focal motor deficit. LABORATORY RESULTS: Dated on 09/29/2016 shows sodium 135, potassium 4, BUN 14, and creatinine 1.5. AST 87, ALT 140, and BNP 3400. WBC 20, hemoglobin 16, and platelets 238,000. Urine analysis shows 4+ occult blood, 5 to 10 WBC, and positive for nitrate. IMAGING: Abdominopelvic CT scan dated on 09/29/2016 is reviewed shows in the distal CBD, left-sided adrenal nodules, fever, incidental finding. ASSESSMENT AND PLAN: 1. Severe sepsis. 2. Obstructive choledocholithiasis. 3. Acute on chronic cholecystitis. 4. Coronary artery disease. 5. History of with evidence of acute coronary syndrome. 6. Abnormal BNP, possibility of congestive heart failure cannot be excluded. 7. Diabetes type 2. 8. Hyperlipidemia. 9. Hypertension. PLAN OF CARE: We will continue with the supportive management and intravenous antibiotic. Infectious Disease, gastrointestinal have been consulted. Surgery has already been notified by the ER attending. The patient remains in the series medical condition. Continue with the aggressive/medical conservative management at this time. COMMENTS: The patient's encounter had occurred yesterday on 09/29/2016 at 1100 hours. (However dictation he is performed on 09/30/2016 at 9 a.m.). Charles Wood M.D. DR: NARCISO JOB#: [id number] CC:
[2016-09-30] MEDS ORDERED: Tubing IV Secondary IV ONE ×2 (14:15→17:05)
[2016-09-30] MEDS ORDERED: NS 550ML IV ONE (14:15)
[2016-09-30] MEDS ORDERED: D5NS 1000ml IV ONE (14:15)
--- NOTE | 2016-09-30 17:58 | General Progress Note ---
Assessment/Plan Assessment/Plan GI: Plan Problems: (1) Leukocytosis (2) LFTs abnormal (3) Abdominal pain (4) Common bile duct (CBD) obstruction - stone (5) Sepsis (6) Tachycardia (7) Cholecystitis Plan pt scheduled for ERCP sunday, will consider procedure if urgent - maintain NPO + IVFs ordered cefepime + flagyl IV H2 monitor VS repeat LFTs fu labs Thank you for referring this patient, we will follow. Subjective Allergies: Coded Allergies: No Known Allergies (Unverified , 09/29/16) Subjective Feels OK getting ultrasound d/w pt re ERCP Sunday Objective Last 24 Hour Vital Signs Date Time Temp Pulse Resp B/P Pulse Ox O2 Delivery O2 Flow Rate FiO2 09/30/16 16:00 97.0 64 19 101/57 97 Room Air 09/30/16 12:00 75 09/30/16 11:35 96.7 63 20 118/52 96 Room Air 09/30/16 08:30 95/56 09/30/16 08:00 60 09/30/16 07:51 97.1 63 20 89/49 96 Room Air 09/30/16 04:00 98.0 67 20 95/58 95 Room Air 09/30/16 04:00 67 09/30/16 00:15 97.0 66 20 95/57 94 09/30/16 00:00 84 09/29/16 20:00 96.8 80 20 98/62 95 Room Air 09/29/16 20:00 84 Intake and Output 09/29/16 09/30/16 19:00 07:00 Intake Total 258 ml 748.0 ml Output Total 300 ml 402 ml Balance -42 ml 346.0 ml Intake Oral 120 ml IV Total 138 ml 748.0 ml Output Urine Total 300 ml 402 ml # Voids 2 # Bowel Movements 1 Laboratory Tests 09/29/16 19:00: Troponin I < 0.30 09/30/16 06:10: Troponin I < 0.30, White Blood Count 8.5#, Red Blood Count 3.70L, Hemoglobin 11.8L, Hematocrit 33.1L, Mean Corpuscular Volume 89, Mean Corpuscular Hemoglobin 31.8H, Mean Corpuscular Hemoglobin Concent 35.6, Red Cell Distribution Width 11.9, Platelet Count 138L, Mean Platelet Volume 9.1, Neutrophils (%) (Auto) 84.6H, Lymphocytes (%) (Auto) 8.0L, Monocytes (%) (Auto) 6.7, Eosinophils (%) (Auto) 0.5, Basophils (%) (Auto) 0.3, Sodium Level 136, Potassium Level 3.5, Chloride Level 100, Carbon Dioxide Level 20, Anion Gap 16H , Blood Urea Nitrogen 17, Creatinine 1.0, Estimat Glomerular Filtration Rate , Glucose Level 185H, Calcium Level 8.4L, Total Bilirubin 3.6H, Direct Bilirubin 2.4H, Aspartate Amino Transf (AST/SGOT) 80H, Alanine Aminotransferase (ALT/SGPT ) 108H, Alkaline Phosphatase 215H, Total Protein 5.4#L, Albumin 2.5L, Globulin 2.9, Albumin/Globulin Ratio 0.8L Height (Feet): 5 Height (Inches): 2.00 Weight (Pounds): 150 Objective WDWN LM NCAT supple CTA RRR Soft ND NT no edema nonfocal MARY VASQUEZ Sep 30, 2016 17:58
[2016-10-01 00:42] VITALS: BP 128/61
[2016-10-01] MEDS: Piperacillin/Tazobactam 3.375 GM in D5W 110 ML IVPB SCH ×3 (02:06→17:48)
[2016-10-01 04:24] VITALS: BP 122/66
[2016-10-01] MEDS: NovoLOG Insulin Flexpen SUBQ SCH ×4 (06:30→20:22)
[2016-10-01 06:58] LABS: BASOPHILS % (AUTO) 0.6 % (0.0-2.0); EOSINOPHILS % (AUTO) 2.1 % (0.0-3.0); LYMPHOCYTES % (AUTO) 11.8 % (20.0-45.0); MEAN CORPUSCULAR HEMOGLOBIN 32.3 PG (27.0-31.0); MEAN CORPUSCULAR HGB CONC 35.9 G/DL (32.0-36.0); MEAN CORPUSCULAR VOLUME 90 FL (80-99); MEAN PLATELET VOLUME 8.4 FL (6.5-10.1); MONOCYTES % (AUTO) 7.2 % (1.0-10.0); NEUTROPHILS % (AUTO) 78.2 % (45.0-75.0); PLATELET COUNT 149 K/UL (150-450); RED BLOOD COUNT 3.67 M/UL (4.70-6.10); RED CELL DISTRIBUTION WIDTH 11.8 % (11.6-14.8); WHITE BLOOD COUNT 6.1 K/UL (4.8-10.8)
[2016-10-01] MEDS: D5NS 1,000 ML IV SCH (07:02)
[2016-10-01 07:26] LABS: ALANINE AMINOTRANSFERASE 90 U/L (3-41); ALBUMIN/GLOBULIN RATIO 0.9 (1.0-2.7); ANION GAP 15 (5-15); ASPARTATE AMINO TRANSFERASE 48 U/L (5-40); CALCIUM 8.4 mg/dL (8.6-10.2); CARBON DIOXIDE 21 mEQ/L (20-30); CHLORIDE 101 mEQ/L (98-107); HEMOLYSIS 1; POTASSIUM 3.4 mEQ/L (3.4-4.9); SODIUM 137 mEQ/L (135-145); TOTAL PROTEIN 5.4 g/dL (6.6-8.7)
[2016-10-01 07:50] VITALS: BP 119/62
[2016-10-01 07:55] LABS: BILIRUBIN,DIRECT 0.8 mg/dL (0.1-0.3)
[2016-10-01] MEDS: Heparin 5000 units/ml inj SUBQ SCH ×2 (09:00→20:21)
[2016-10-01] MEDS: Famotidine 20 MG/ 2ML VIAL IVP SCH ×2 (09:55→20:21)
[2016-10-01] MEDS: Aspirin Baby 81mg ORAL SCH (09:55)
[2016-10-01 11:25] VITALS: BP 122/60
--- NOTE | 2016-10-01 11:29 | General Progress Note ---
Progress Note Progress Note patient is followed for cholecystitis, choledocholithiasis and hyperbilirubinemia. Pending ERCP tomorrow. Labs Test 09/29/16 11:50 09/29/16 13:55 09/29/16 19:00 09/30/16 06:10 Lactic Acid Level 3.90 mmol/L (0.66-2.22) Troponin I < 0.30 ng/mL (<=0.30) < 0.30 ng/mL (<=0.30) < 0.30 ng/mL (<=0.30) Triglycerides Level 149 mg/dL (< 150) Cholesterol Level 95 mg/dL (< 200) LDL Cholesterol 56 mg/dL (60-99) HDL Cholesterol 9 mg/dL (> 60) Cholesterol/HDL Ratio 10.6 (3.3-4.4) Thyroid Stimulating Hormone (TSH) 2.230 uIU/mL (0.300-4.500) White Blood Count 8.5 K/UL (4.8-10.8) Red Blood Count 3.70 M/UL (4.70-6.10) Hemoglobin 11.8 G/DL (14.2-18.0) Hematocrit 33.1 % (42.0-52.0) Mean Corpuscular Volume 89 FL (80-99) Mean Corpuscular Hemoglobin 31.8 PG (27.0-31.0) Mean Corpuscular Hemoglobin Concent 35.6 G/DL (32.0-36.0) Red Cell Distribution Width 11.9 % (11.6-14.8) Platelet Count 138 K/UL (150-450) Mean Platelet Volume 9.1 FL (6.5-10.1) Neutrophils (%) (Auto) 84.6 % (45.0-75.0) Lymphocytes (%) (Auto) 8.0 % (20.0-45.0) Monocytes (%) (Auto) 6.7 % (1.0-10.0) Eosinophils (%) (Auto) 0.5 % (0.0-3.0) Basophils (%) (Auto) 0.3 % (0.0-2.0) Sodium Level 136 mEQ/L (135-145) Potassium Level 3.5 mEQ/L (3.4-4.9) Chloride Level 100 mEQ/L (98-107) Carbon Dioxide Level 20 mEQ/L (20-30) Anion Gap 16 (5-15) Blood Urea Nitrogen 17 mg/dL (7-23) Creatinine 1.0 mg/dL (0.7-1.2) Estimat Glomerular Filtration Rate mL/min (>60) Glucose Level 185 mg/dL (74-106) Calcium Level 8.4 mg/dL (8.6-10.2) Total Bilirubin 3.6 mg/dL (0.0-1.2) Direct Bilirubin 2.4 mg/dL (0.1-0.3) Aspartate Amino Transf (AST/SGOT) 80 U/L (5-40) Alanine Aminotransferase (ALT/SGPT) 108 U/L (3-41) Alkaline Phosphatase 215 U/L (40-129) Total Protein 5.4 g/dL (6.6-8.7) Albumin 2.5 g/dL (3.5-5.2) Globulin 2.9 g/dL Albumin/Globulin Ratio 0.8 (1.0-2.7) Test 10/01/16 04:50 White Blood Count 6.1 K/UL (4.8-10.8) Red Blood Count 3.67 M/UL (4.70-6.10) Hemoglobin 11.9 G/DL (14.2-18.0) Hematocrit 33.0 % (42.0-52.0) Mean Corpuscular Volume 90 FL (80-99) Mean Corpuscular Hemoglobin 32.3 PG (27.0-31.0) Mean Corpuscular Hemoglobin Concent 35.9 G/DL (32.0-36.0) Red Cell Distribution Width 11.8 % (11.6-14.8) Platelet Count 149 K/UL (150-450) Mean Platelet Volume 8.4 FL (6.5-10.1) Neutrophils (%) (Auto) 78.2 % (45.0-75.0) Lymphocytes (%) (Auto) 11.8 % (20.0-45.0) Monocytes (%) (Auto) 7.2 % (1.0-10.0) Eosinophils (%) (Auto) 2.1 % (0.0-3.0) Basophils (%) (Auto) 0.6 % (0.0-2.0) Sodium Level 137 mEQ/L (135-145) Potassium Level 3.4 mEQ/L (3.4-4.9) Chloride Level 101 mEQ/L (98-107) Carbon Dioxide Level 21 mEQ/L (20-30) Anion Gap 15 (5-15) Blood Urea Nitrogen 17 mg/dL (7-23) Creatinine 1.0 mg/dL (0.7-1.2) Estimat Glomerular Filtration Rate mL/min (>60) Glucose Level 170 mg/dL (74-106) Calcium Level 8.4 mg/dL (8.6-10.2) Total Bilirubin 1.6 mg/dL (0.0-1.2) Direct Bilirubin 0.8 mg/dL (0.1-0.3) Aspartate Amino Transf (AST/SGOT) 48 U/L (5-40) Alanine Aminotransferase (ALT/SGPT) 90 U/L (3-41) Alkaline Phosphatase 271 U/L (40-129) Total Protein 5.4 g/dL (6.6-8.7) Albumin 2.6 g/dL (3.5-5.2) Globulin 2.8 g/dL Albumin/Globulin Ratio 0.9 (1.0-2.7) Comfortable, NAD VSS Abd soft. Imp clinically improving. BR now normal Await ERCP NATHANIEL GOMEZ Oct 01, 2016 11:29
--- NOTE | 2016-10-01 15:12 | Infectious Diseases Prog Note ---
Assessment/Plan Assessment/Plan Charles Wood M.D. REASON FOR CONSULTATION: Evaluation of the patient for cholangitis, cholecystitis, fever, and antibiotic management. HISTORY OF PRESENT ILLNESS: The patient is a 75-year-old male with multiple medical problems as listed below who came in to the hospital with abdominal pain x4 days. CT scan of the abdomen showed evidence of cholecystitis, possible cholangitis. Infectious disease consultation has been requested for further evaluation of the patient and antibiotic management. PAST MEDICAL HISTORY: Significant for CAD, hyperlipidemia, diabetes, hypertension, and history of myocardial infarction in the past. SOCIAL HISTORY: The patient is an ex-smoker. FAMILY HISTORY: Noncontributory. REVIEW OF SYSTEMS: HEENT: No recent change in vision or hearing. Pulmonary: No cough or shortness of breath. Cardiovascular: No chest pain or palpitation. Gastrointestinal/Abdomen: As mentioned above. Genitourinary: No dysuria. Neurologic: No seizure. MEDICATIONS: IV Zosyn. PHYSICAL EXAMINATION: VITAL SIGNS: Temperature 98 degrees, blood pressure 85/58, pulse 106, and respiratory rate 20. HEENT: Mild pale conjunctivae. No icterus. NECK: No lymphadenopathy. CHEST: Coarse breathing sounds. HEART: S1 and S2. ABDOMEN: Soft. Mild tenderness. NEUROLOGIC: He is awake and alert. LABORATORY DATA: White blood cells 20, hemoglobin 16, and platelets 238,000. UA, 5 to 10 white blood cells and 2 to 4 red blood cells. BUN 14 and creatinine 0.5. AST 87, ALT of 142, and alkaline phosphatase 227. CT scan abdomen as mentioned above. ASSESSMENT: The patient is a 75-year-old male with multiple medical problems, who has been admitted to this medical center because of cholangitis. The patient would benefit from coverage of anaerobes and gram negatives to stabilize and later the patient would need further gastrointestinal/surgical intervention. PLAN: 1. We will start the patient on IV Zosyn. 2. Monitor CBC. 3. Monitor BMP. 4. Monitor blood culture. 5. We will follow GI and surgical recommendations. 6. Based on the patient's clinical course and labs, we will do further recommendation. Subjective Allergies: Coded Allergies: No Known Allergies (Unverified , 09/29/16) Objective Vital Signs Last 24 Hour Vital Signs Date Time Temp Pulse Resp B/P Pulse Ox O2 Delivery O2 Flow Rate FiO2 10/01/16 12:00 56 1/29/17 11:25 96.7 60 20 122/60 99 Room Air 10/01/16 08:00 52 10/01/16 07:50 97.5 65 20 119/62 97 Room Air 10/01/16 04:24 98.7 67 19 122/66 98 Room Air 10/01/16 04:00 59 10/01/16 00:42 98.5 68 20 128/61 98 Room Air 10/01/16 00:00 66 09/30/16 20:00 97.5 69 20 130/74 97 Room Air 09/30/16 20:00 67 09/30/16 16:00 97.0 64 19 101/57 97 Room Air 09/30/16 16:00 97.0 64 19 101/57 97 Room Air 09/30/16 16:00 66 Height (Feet): 5 Height (Inches): 2.00 Weight (Pounds): 150 Microbiology Date/Time Source Procedure Growth Status 09/29/16 09:15 Blood Blood Culture - Preliminary Resulted 09/29/16 09:00 Blood Blood Culture - Preliminary Resulted Laboratory Tests Test 10/01/16 04:50 White Blood Count 6.1 K/UL (4.8-10.8) Red Blood Count 3.67 M/UL (4.70-6.10) L Hemoglobin 11.9 G/DL (14.2-18.0) L Hematocrit 33.0 % (42.0-52.0) L Mean Corpuscular Volume 90 FL (80-99) Mean Corpuscular Hemoglobin 32.3 PG (27.0-31.0) H Mean Corpuscular Hemoglobin Concent 35.9 G/DL (32.0-36.0) Red Cell Distribution Width 11.8 % (11.6-14.8) Platelet Count 149 K/UL (150-450) L Mean Platelet Volume 8.4 FL (6.5-10.1) Neutrophils (%) (Auto) 78.2 % (45.0-75.0) H Lymphocytes (%) (Auto) 11.8 % (20.0-45.0) L Monocytes (%) (Auto) 7.2 % (1.0-10.0) Eosinophils (%) (Auto) 2.1 % (0.0-3.0) Basophils (%) (Auto) 0.6 % (0.0-2.0) Sodium Level 137 mEQ/L (135-145) Potassium Level 3.4 mEQ/L (3.4-4.9) Chloride Level 101 mEQ/L (98-107) Carbon Dioxide Level 21 mEQ/L (20-30) Anion Gap 15 (5-15) Blood Urea Nitrogen 17 mg/dL (7-23) Creatinine 1.0 mg/dL (0.7-1.2) Estimat Glomerular Filtration Rate mL/min (>60) Glucose Level 170 mg/dL (74-106) H Calcium Level 8.4 mg/dL (8.6-10.2) L Total Bilirubin 1.6 mg/dL (0.0-1.2) H Direct Bilirubin 0.8 mg/dL (0.1-0.3) H Aspartate Amino Transf (AST/SGOT) 48 U/L (5-40) H Alanine Aminotransferase (ALT/SGPT) 90 U/L (3-41) H Alkaline Phosphatase 271 U/L (40-129) H Total Protein 5.4 g/dL (6.6-8.7) L Albumin 2.6 g/dL (3.5-5.2) L Globulin 2.8 g/dL Albumin/Globulin Ratio 0.9 (1.0-2.7) L Current Medications Medications (Trade) Dose Ordered Sig/Madina Route PRN Reason Start Time Stop Time Status Last Admin Dose Admin Acetaminophen (Tylenol) 500 mg EVERY 6 HOURS PRN ORAL Mild Pain/Temp > 100.5 09/29/16 13:15 10/29/16 13:14 Aspirin (ASA) 81 mg DAILY ORAL 09/30/16 09:00 10/30/16 08:59 10/01/16 09:55 Dextrose (Dextrose 50%) STAT PRN IV Hypoglycemia 09/29/16 13:15 10/29/16 13:14 Dextrose/Sodium Chloride (D5ns) 1,000 ml @ 75 mls/hr [id number] IV 09/29/16 14:00 10/29/16 13:59 10/01/16 07:02 Famotidine (Pepcid I.v.) 20 mg Q12HR IVP 09/29/16 21:00 10/29/16 20:59 10/01/16 09:55 Heparin Sodium (Porcine) (Heparin 5000 units/ml) 5,000 units EVERY 12 HOURS SUBQ 09/29/16 21:00 10/29/16 20:59 09/30/16 09:20 Insulin Aspart (NovoLOG) BEFORE MEALS AND HS SUBQ 09/29/16 16:30 10/29/16 16:29 Morphine Sulfate (Morphine Sulfate) 2 mg Q8HR PRN IVP Severe Pain (Pain Scale 7-10) 09/29/16 13:15 10/06/16 13:14 Pantoprazole 40 mg 40 mg DAILY ORAL 09/30/16 09:00 10/30/16 08:59 10/01/16 09:55 Piperacillin Sod/ Tazobactam Sod/ Dextrose (Zosyn/D5W) 110 ml @ 27.5 mls/hr Q8H IVPB 09/29/16 18:00 10/06/16 17:59 10/01/16 10:00 Pravastatin Sodium (Pravachol) 20 mg BEDTIME ORAL 09/29/16 21:00 10/29/16 20:59 09/30/16 20:15 ROSLYN KEN M.D. Oct 01, 2016 15:12
--- NOTE | 2016-10-01 15:27 | Internal Med Progress Note ---
Subjective Date of Service: Oct 01, 2016 Physician Name Reji Salazar Attending Physician Charles Wood MD Current Medications Medications (Trade) Dose Ordered Sig/Madina Route PRN Reason Start Time Stop Time Status Last Admin Dose Admin Acetaminophen (Tylenol) 500 mg EVERY 6 HOURS PRN ORAL Mild Pain/Temp > 100.5 09/29/16 13:15 10/29/16 13:14 Aspirin (ASA) 81 mg DAILY ORAL 09/30/16 09:00 10/30/16 08:59 10/01/16 09:55 Dextrose (Dextrose 50%) STAT PRN IV Hypoglycemia 09/29/16 13:15 10/29/16 13:14 Dextrose/Sodium Chloride (D5ns) 1,000 ml @ 75 mls/hr [id number] IV 09/29/16 14:00 10/29/16 13:59 10/01/16 07:02 Famotidine (Pepcid I.v.) 20 mg Q12HR IVP 09/29/16 21:00 10/29/16 20:59 10/01/16 09:55 Heparin Sodium (Porcine) (Heparin 5000 units/ml) 5,000 units EVERY 12 HOURS SUBQ 09/29/16 21:00 10/29/16 20:59 09/30/16 09:20 Insulin Aspart (NovoLOG) BEFORE MEALS AND HS SUBQ 09/29/16 16:30 10/29/16 16:29 Morphine Sulfate (Morphine Sulfate) 2 mg Q8HR PRN IVP Severe Pain (Pain Scale 7-10) 09/29/16 13:15 10/06/16 13:14 Pantoprazole 40 mg 40 mg DAILY ORAL 09/30/16 09:00 10/30/16 08:59 10/01/16 09:55 Piperacillin Sod/ Tazobactam Sod/ Dextrose (Zosyn/D5W) 110 ml @ 27.5 mls/hr Q8H IVPB 09/29/16 18:00 10/06/16 17:59 10/01/16 10:00 Pravastatin Sodium (Pravachol) 20 mg BEDTIME ORAL 09/29/16 21:00 10/29/16 20:59 09/30/16 20:15 Allergies: Coded Allergies: No Known Allergies (Unverified , 09/29/16) ROS Limited/Unobtainable: No Constitutional: Reports: no symptoms HEENT: Reports: no symptoms Cardiovascular: Reports: chest pain Respiratory: Reports: no symptoms Gastrointestinal/Abdominal: Reports: abdominal pain Genitourinary: Reports: no symptoms Neurologic/Psychiatric: Reports: no symptoms Subjective 75 YO M admitted with epigastric pain, now choledocholithiasis. Cover for Int Juan Diego-Dr Wood Objective Last Vital Signs Date Time Temp Pulse Resp B/P Pulse Ox O2 Delivery O2 Flow Rate FiO2 10/01/16 12:00 56 10/01/16 11:25 96.7 20 122/60 99 Room Air General Appearance: WD/WN, alert, mild distress EENT: PERRL/EOMI, normal ENT inspection Neck: non-tender, normal alignment, supple Cardiovascular: normal peripheral pulses, normal rate, regular rhythm, no gallop/murmur, no JVD Respiratory/Chest: chest wall non-tender, lungs clear, normal breath sounds, no respiratory distress, no accessory muscle use Abdomen: decreased bowel sounds, distended, guarding, tender Extremities: normal range of motion Neurologic: ekg technician II-XII grossly normal Skin: normal pigmentation, warm/dry Laboratory Tests Test 10/01/16 04:50 White Blood Count 6.1 K/UL (4.8-10.8) Red Blood Count 3.67 M/UL (4.70-6.10) L Hemoglobin 11.9 G/DL (14.2-18.0) L Hematocrit 33.0 % (42.0-52.0) L Mean Corpuscular Volume 90 FL (80-99) Mean Corpuscular Hemoglobin 32.3 PG (27.0-31.0) H Mean Corpuscular Hemoglobin Concent 35.9 G/DL (32.0-36.0) Red Cell Distribution Width 11.8 % (11.6-14.8) Platelet Count 149 K/UL (150-450) L Mean Platelet Volume 8.4 FL (6.5-10.1) Neutrophils (%) (Auto) 78.2 % (45.0-75.0) H Lymphocytes (%) (Auto) 11.8 % (20.0-45.0) L Monocytes (%) (Auto) 7.2 % (1.0-10.0) Eosinophils (%) (Auto) 2.1 % (0.0-3.0) Basophils (%) (Auto) 0.6 % (0.0-2.0) Sodium Level 137 mEQ/L (135-145) Potassium Level 3.4 mEQ/L (3.4-4.9) Chloride Level 101 mEQ/L (98-107) Carbon Dioxide Level 21 mEQ/L (20-30) Anion Gap 15 (5-15) Blood Urea Nitrogen 17 mg/dL (7-23) Creatinine 1.0 mg/dL (0.7-1.2) Estimat Glomerular Filtration Rate mL/min (>60) Glucose Level 170 mg/dL (74-106) H Calcium Level 8.4 mg/dL (8.6-10.2) L Total Bilirubin 1.6 mg/dL (0.0-1.2) H Direct Bilirubin 0.8 mg/dL (0.1-0.3) H Aspartate Amino Transf (AST/SGOT) 48 U/L (5-40) H Alanine Aminotransferase (ALT/SGPT) 90 U/L (3-41) H Alkaline Phosphatase 271 U/L (40-129) H Total Protein 5.4 g/dL (6.6-8.7) L Albumin 2.6 g/dL (3.5-5.2) L Globulin 2.8 g/dL Albumin/Globulin Ratio 0.9 (1.0-2.7) L Microbiology Date/Time Source Procedure Growth Status 09/29/16 09:15 Blood Blood Culture - Preliminary Resulted 09/29/16 09:00 Blood Blood Culture - Preliminary Resulted Intake and Output 09/30/16 10/01/16 19:00 07:00 Intake Total 102.5 ml 990.0 ml Output Total 300 ml Balance -197.5 ml 990.0 ml IV Total 102.5 ml 990.0 ml Output Urine Total 300 ml # Voids 2 # Bowel Movements 1 Assessment/Plan Problem List: (1) HTN (hypertension) (2) Diabetes mellitus Assessment & Plan: Cont novolog sliding scale. (3) CAD (coronary artery disease) (4) Hypercholesteremia Assessment & Plan: Cont pravachol (5) Epigastric abdominal pain (6) Choledocholithiasis Assessment & Plan: See GI and surgery note. Await ERCP on Sun10/02/16 (7) Chest pain Assessment & Plan: Due to cholecystitis. Troponin neg (8) Cholecystitis (9) LFTs abnormal Status: not improved REJI SALAZAR Oct 01, 2016 15:27
[2016-10-01 16:00] VITALS: BP 137/80
--- NOTE | 2016-10-01 16:35 | General Progress Note ---
Assessment/Plan Assessment/Plan GI: Plan Problems: (1) Leukocytosis (2) LFTs abnormal (3) Abdominal pain (4) Common bile duct (CBD) obstruction - stone (5) Sepsis (6) Tachycardia (7) Cholecystitis Plan pt scheduled for ERCP sunday, will consider procedure if urgent - maintain NPO + IVFs ordered cefepime + flagyl IV H2 monitor VS repeat LFTs fu labs Thank you for referring this patient, we will follow. Subjective Allergies: Coded Allergies: No Known Allergies (Unverified , 09/29/16) Subjective Feels OK getting ultrasound d/w pt re ERCP Sunday Objective Last 24 Hour Vital Signs Date Time Temp Pulse Resp B/P Pulse Ox O2 Delivery O2 Flow Rate FiO2 10/01/16 16:00 97.2 61 19 137/80 98 Room Air 10/01/16 12:00 56 10/01/16 11:25 96.7 60 20 122/60 99 Room Air 10/01/16 08:00 52 10/01/16 07:50 97.5 65 20 119/62 97 Room Air 10/01/16 04:24 98.7 67 19 122/66 98 Room Air 10/01/16 04:00 59 10/01/16 00:42 98.5 68 20 128/61 98 Room Air 10/01/16 00:00 66 09/30/16 20:00 97.5 69 20 130/74 97 Room Air 09/30/16 20:00 67 Intake and Output 09/30/16 10/01/16 19:00 07:00 Intake Total 102.5 ml 990.0 ml Output Total 300 ml Balance -197.5 ml 990.0 ml IV Total 102.5 ml 990.0 ml Output Urine Total 300 ml # Voids 2 # Bowel Movements 1 Laboratory Tests 10/01/16 04:50: White Blood Count 6.1, Red Blood Count 3.67L, Hemoglobin 11.9L, Hematocrit 33.0L , Mean Corpuscular Volume 90, Mean Corpuscular Hemoglobin 32.3H, Mean Corpuscular Hemoglobin Concent 35.9, Red Cell Distribution Width 11.8, Platelet Count 149L, Mean Platelet Volume 8.4, Neutrophils (%) (Auto) 78.2H, Lymphocytes (%) (Auto) 11.8L, Monocytes (%) (Auto) 7.2, Eosinophils (%) (Auto) 2.1, Basophils (%) (Auto) 0.6, Sodium Level 137, Potassium Level 3.4, Chloride Level 101, Carbon Dioxide Level 21, Anion Gap 15, Blood Urea Nitrogen 17, Creatinine 1.0, Estimat Glomerular Filtration Rate , Glucose Level 170H, Calcium Level 8.4L , Total Bilirubin 1.6H, Direct Bilirubin 0.8H, Aspartate Amino Transf (AST/SGOT ) 48H, Alanine Aminotransferase (ALT/SGPT) 90H, Alkaline Phosphatase 271H, Total Protein 5.4L, Albumin 2.6L, Globulin 2.8, Albumin/Globulin Ratio 0.9L Height (Feet): 5 Height (Inches): 2.00 Weight (Pounds): 150 Objective WDWN LM NCAT supple CTA RRR Soft ND NT no edema nonfocal MARY VASQUEZ Oct 01, 2016 16:35
[2016-10-01 20:00] VITALS: BP 131/68
[2016-10-02] VITALS (11 sets, daily range): BP systolic 125–146; BP diastolic 57–76
[2016-10-02] MEDS: Piperacillin/Tazobactam 3.375 GM in D5W 110 ML IVPB SCH ×3 (01:55→18:15)
[2016-10-02] MEDS: NovoLOG Insulin Flexpen SUBQ SCH ×4 (06:30→21:00)
[2016-10-02] MEDS ORDERED: Iothalamate Meglumine 60% 30ML INJ ONE (06:44)
[2016-10-02] MEDS ORDERED: Indomethacin 50mg Supp ONE (06:45)
[2016-10-02 06:48] LABS: ALANINE AMINOTRANSFERASE 56 U/L (3-41); ALBUMIN/GLOBULIN RATIO 0.9 (1.0-2.7); ANION GAP 18 (5-15); ASPARTATE AMINO TRANSFERASE 22 U/L (5-40); CALCIUM 7.2 mg/dL (8.6-10.2); CARBON DIOXIDE 18 mEQ/L (20-30); CHLORIDE 106 mEQ/L (98-107); CREATININE 0.8 mg/dL (0.7-1.2); HEMOLYSIS 2; INR 1.1 (0.9-1.1); POTASSIUM 3.1 mEQ/L (3.4-4.9); PROTHROMBIN TIME 11.3 SEC (9.30-11.50); SODIUM 142 mEQ/L (135-145)
[2016-10-02 06:49] LABS: BASOPHILS % (AUTO) 0.6 % (0.0-2.0); EOSINOPHILS % (AUTO) 1.1 % (0.0-3.0); LYMPHOCYTES % (AUTO) 21.6 % (20.0-45.0); MEAN CORPUSCULAR HEMOGLOBIN 31.8 PG (27.0-31.0); MEAN CORPUSCULAR HGB CONC 34.4 G/DL (32.0-36.0); MEAN CORPUSCULAR VOLUME 92 FL (80-99); MEAN PLATELET VOLUME 7.6 FL (6.5-10.1); MONOCYTES % (AUTO) 7.7 % (1.0-10.0); PLATELET COUNT 140 K/UL (150-450); RED CELL DISTRIBUTION WIDTH 12.3 % (11.6-14.8); WHITE BLOOD COUNT 5.8 K/UL (4.8-10.8)
--- NOTE | 2016-10-02 06:51 | Anethesia Preoperative Eval ---
Anesthesia Pre-op PMH/ROS General Date of Evaluation: Oct 02, 2016 Time of Evaluation: 06:48 Anesthesiologist: kiko ASA Score: ASA 3 Mallampati Score Class I : Soft palate, uvula, fauces, pillars visible Class II: Soft palate, uvula, fauces visible Class III: Soft palate, base of uvula visible Class IV: Only hard plate visible Surgeon: bo Diagnosis: common bile duct stones Surgical Procedure: ERCP Family History: no anesthesia problems Allergies: Coded Allergies: No Known Allergies (Unverified , 09/29/16) Medications: see eMAR Past Medical History Cardiovascular: Reports: CAD, HTN PMH Narrative: 1. Severe sepsis. 2. Obstructive choledocholithiasis. 3. Acute on chronic cholecystitis. 4. Coronary artery disease. 5. History of with evidence of acute coronary syndrome. 6. Abnormal BNP, possibility of congestive heart failure cannot be excluded. 7. Diabetes type 2. 8. Hyperlipidemia. 9. Hypertension. Anesthesia Pre-op Phys. Exam Physician Exam Last Vital Signs Date Time Temp Pulse Resp B/P Pulse Ox O2 Delivery O2 Flow Rate FiO2 10/02/16 04:10 97.0 65 20 141/70 95 Room Air Constitutional: NAD Neurologic: CN 2-12 intact Cardiovascular: RRR Respiratory: CTA Gastrointestinal: S/NT/ND Airway Exam Mallampati Classification 3 Mallampati Score: Class III MO: full Neck: normal Anesthesia Pre-op A/P Labs Hematology Test 10/02/16 05:10 White Blood Count Pending Red Blood Count Pending Hemoglobin Pending Hematocrit Pending Mean Corpuscular Volume Pending Mean Corpuscular Hemoglobin Pending Mean Corpuscular Hemoglobin Concent Pending Red Cell Distribution Width Pending Platelet Count Pending Mean Platelet Volume Pending Neutrophils (%) (Auto) Pending Lymphocytes (%) (Auto) Pending Monocytes (%) (Auto) Pending Eosinophils (%) (Auto) Pending Basophils (%) (Auto) Pending Coagulation Test 10/02/16 05:10 Prothrombin Time Pending Prothromb Time International Ratio Pending Activated Partial Thromboplast Time Pending Chemistry Test 10/02/16 05:10 Sodium Level Pending Potassium Level Pending Chloride Level Pending Carbon Dioxide Level Pending Blood Urea Nitrogen Pending Creatinine Pending Estimat Glomerular Filtration Rate Pending Glucose Level Pending Calcium Level Pending Total Bilirubin Pending Aspartate Amino Transf (AST/SGOT) Pending Alanine Aminotransferase (ALT/SGPT) Pending Alkaline Phosphatase Pending Total Protein Pending Albumin Pending Globulin Pending Studies Pre-op Studies: EKG - sr Risk Assessment & Plan Plan: mac Status Change Before Surgery: No Pre-Antibiotics Drug: none GONZALES VILLARREAL CRNA Oct 02, 2016 06:51
[2016-10-02] MEDS ORDERED: NS 550ML IV ONE (06:55)
[2016-10-02] MEDS ORDERED: LR 1000ml ONE (07:00)
[2016-10-02] MEDS ORDERED: fentaNYL 100 mcg/2 mL IV ONE (07:00)
[2016-10-02] MEDS ORDERED: Glucagon 1mg Inj ONE (07:00)
[2016-10-02] MEDS ORDERED: Lidocaine 1% MPF 10mg/ml 5ml ONE ×2 (07:00→10:13)
[2016-10-02] MEDS ORDERED: Propofol 10mg/ml 20ml IV ONE (07:00)
--- NOTE | 2016-10-02 07:04 | Pre-Procedure Note/Attestation ---
Pre-Procedure Note/Attestation Complete Prior to Procedure Planned Procedure: not applicable Procedure Narrative: ercp Indications for Procedure Pre-Operative Diagnosis: choledocholithiasis Attestation I attest that I discussed the nature of the procedure; its benefits; risks and complications; and alternatives (and the risks and benefits of such alternatives ), prior to the procedure, with the patient (or the patient's legal union contract representative). I attest that, if there was a reasonable possibility of needing a blood transfusion, the patient (or the patient's legal union contract representative) was given the [facility] standardized written summary, pursuant to the Rex Cher Blood Safety Act ([place] Health and Safety Code # 1645, as amended). I attest that I re-evaluated the patient just prior to the surgery and that there has been no change in the patient's H&P, except as documented below: ELLIS JOHNSON Oct 02, 2016 07:04
--- NOTE | 2016-10-02 08:05 | Endoscopy Procedure Note ---
Endoscopy Procedure Note Indication for Procedure: choledocholithiasis Procedures Performed: ERCP Operative Findings/Diagnosis: same Specimen: none Pt Tolerated Procedure Well: Yes Estimated Blood Loss: none Anesthesiologist: Rosario Anesthesia: MAC Implant(s) used?: No 50 yrs or older w/o bx or poly: Not Applicable 10yrs. F/U not recommended: Not Applicable ELLIS JOHNSON Oct 02, 2016 08:05
--- NOTE | 2016-10-02 08:13 | Immediate Post-Op Evaluation ---
Immediate Post-Op Evalulation Immediate Post-Op Evalulation Procedure: ERCP Date of Evaluation: Oct 02, 2016 Time of Evaluation: 08:05 Blood Pressure Systolic: 154 Blood Pressure Diastolic: 64 Pulse Rate: 74 O2 Sat by Pulse Oximetry: 100 Nausea: No Vomiting: No Complications none Patient Status: awake, patent Hydration Status: adequate Drug: none GONZALES VILLARREAL CRNA Oct 02, 2016 08:13
--- NOTE | 2016-10-02 08:38 | 48 Hour Post Anesthesia Eval ---
Post Anesthesia Evaluation Procedure: ERCP Date of Evaluation: Oct 02, 2016 Time of Evaluation: 08:37 Blood Pressure Systolic: 143 0: 65 Pulse Rate: 74 O2 Sat by Pulse Oximetry: 100 Airway: patent Nausea: No Vomiting: No Hydration Status: adequate Mental Status/LOC: patient returned to baseline Post-Anesthesia Complications: none Follow-up care needed: N/A GONZALES VILLARREAL CRNA Oct 02, 2016 08:38
[2016-10-02] MEDS: Heparin 5000 units/ml inj SUBQ SCH ×2 (09:00→21:00)
[2016-10-02] MEDS: Aspirin Baby 81mg ORAL SCH (09:09)
--- NOTE | 2016-10-02 09:36 | General Progress Note ---
Assessment/Plan Status: stable Assessment/Plan 1- Sever Sepsis: controlled 2-Abn LFT: Improving 3- Cholangitis/ acute cholecystitis 4- Abn BNP 5-UTI 5- Gi-DVT Plan: Current management status post ERCP Subjective ROS Limited/Unobtainable: No Constitutional: Reports: no symptoms HEENT: Reports: no symptoms Cardiovascular: Reports: no symptoms Allergies: Coded Allergies: No Known Allergies (Unverified , 09/29/16) Objective Last 24 Hour Vital Signs Date Time Temp Pulse Resp B/P Pulse Ox O2 Delivery O2 Flow Rate FiO2 10/02/16 08:45 48 22 142/67 96 Room Air 48 10/02/16 08:38 74 100 10/02/16 08:30 98.8 47 23 140/66 97 Room Air 47 10/02/16 08:20 49 21 144/68 97 Room Air 49 10/02/16 08:13 74 100 10/02/16 08:10 45 19 141/65 100 Simple Mask 6.0 45 10/02/16 08:05 48 20 145/67 100 Simple Mask 6.0 48 10/02/16 08:02 98.9 44 23 146/61 100 Simple Mask 6.0 44 10/02/16 04:10 97.0 65 20 141/70 95 Room Air 10/02/16 04:00 54 10/02/16 00:03 97.0 70 20 136/70 98 Room Air 10/02/16 00:00 52 10/01/16 20:00 74 10/01/16 20:00 97.5 64 20 131/68 98 Room Air 10/01/16 16:00 97.2 61 19 137/80 98 Room Air 10/01/16 16:00 59 10/01/16 12:00 56 10/01/16 11:25 96.7 60 20 122/60 99 Room Air Intake and Output 10/01/16 10/02/16 19:00 07:00 Intake Total 812.5 ml 1292.5 ml Output Total 200 ml Balance 612.5 ml 1292.5 ml IV Total 812.5 ml 1292.5 ml Output Urine Total 200 ml # Voids 1 Laboratory Tests 10/02/16 05:10: White Blood Count 5.8, Red Blood Count 3.40L, Hemoglobin 10.8L, Hematocrit 31.3L , Mean Corpuscular Volume 92, Mean Corpuscular Hemoglobin 31.8H, Mean Corpuscular Hemoglobin Concent 34.4, Red Cell Distribution Width 12.3, Platelet Count 140L, Mean Platelet Volume 7.6, Neutrophils (%) (Auto) 69.0, Lymphocytes ( %) (Auto) 21.6, Monocytes (%) (Auto) 7.7, Eosinophils (%) (Auto) 1.1, Basophils (%) (Auto) 0.6, Prothrombin Time 11.3, Prothromb Time International Ratio 1.1, Activated Partial Thromboplast Time 30, Sodium Level 142, Potassium Level 3.1L, Chloride Level 106, Carbon Dioxide Level 18L, Anion Gap 18H, Blood Urea Nitrogen 14, Creatinine 0.8, Estimat Glomerular Filtration Rate , Glucose Level 102, Calcium Level 7.2L, Total Bilirubin 0.9, Aspartate Amino Transf (AST/SGOT) 22, Alanine Aminotransferase (ALT/SGPT) 56H, Alkaline Phosphatase 313H, Total Protein 5.0L, Albumin 2.4L, Globulin 2.6, Albumin/Globulin Ratio 0.9L Height (Feet): 5 Height (Inches): 7.00 Weight (Pounds): 152 General Appearance: WD/WN EENT: PERRL/EOMI Neck: supple Cardiovascular: normal rate Respiratory/Chest: lungs clear Abdomen: soft Extremities: non-tender 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
[2016-10-02] MEDS: Famotidine 20 MG/ 2ML VIAL IVP SCH ×2 (09:53→22:00)
--- NOTE | 2016-10-02 10:19 | General Surgery Progress Note ---
General Surgery-Progress Note Subjective Reason for Consult acute cholecystitis, choledocholithiasis Symptoms: improved Additional Comments patient seen and examined at bedside. much improved. had ERCP this AM with removal of stones. no issues since. Objective Last 24 Hour Vital Signs Date Time Temp Pulse Resp B/P Pulse Ox O2 Delivery O2 Flow Rate FiO2 10/02/16 08:45 48 22 142/67 96 Room Air 48 10/02/16 08:38 74 100 10/02/16 08:30 98.8 47 23 140/66 97 Room Air 47 10/02/16 08:20 49 21 144/68 97 Room Air 49 10/02/16 08:13 74 100 10/02/16 08:10 45 19 141/65 100 Simple Mask 6.0 45 10/02/16 08:05 48 20 145/67 100 Simple Mask 6.0 48 10/02/16 08:02 98.9 44 23 146/61 100 Simple Mask 6.0 44 10/02/16 04:10 97.0 65 20 141/70 95 Room Air 10/02/16 04:00 54 10/02/16 00:03 97.0 70 20 136/70 98 Room Air 10/02/16 00:00 52 10/01/16 20:00 74 10/01/16 20:00 97.5 64 20 131/68 98 Room Air 10/01/16 16:00 97.2 61 19 137/80 98 Room Air 10/01/16 16:00 59 10/01/16 12:00 56 10/01/16 11:25 96.7 60 20 122/60 99 Room Air I&O Intake and Output 10/01/16 10/02/16 19:00 07:00 Intake Total 812.5 ml 1292.5 ml Output Total 200 ml Balance 612.5 ml 1292.5 ml IV Total 812.5 ml 1292.5 ml Output Urine Total 200 ml # Voids 1 Cardiovascular: RSR Respiratory: clear Abdomen: soft, non-tender Extremities: no edema, no tenderness Laboratory Tests Test 10/02/16 05:10 White Blood Count 5.8 K/UL (4.8-10.8) Red Blood Count 3.40 M/UL (4.70-6.10) L Hemoglobin 10.8 G/DL (14.2-18.0) L Hematocrit 31.3 % (42.0-52.0) L Mean Corpuscular Volume 92 FL (80-99) Mean Corpuscular Hemoglobin 31.8 PG (27.0-31.0) H Mean Corpuscular Hemoglobin Concent 34.4 G/DL (32.0-36.0) Red Cell Distribution Width 12.3 % (11.6-14.8) Platelet Count 140 K/UL (150-450) L Mean Platelet Volume 7.6 FL (6.5-10.1) Neutrophils (%) (Auto) 69.0 % (45.0-75.0) Lymphocytes (%) (Auto) 21.6 % (20.0-45.0) Monocytes (%) (Auto) 7.7 % (1.0-10.0) Eosinophils (%) (Auto) 1.1 % (0.0-3.0) Basophils (%) (Auto) 0.6 % (0.0-2.0) Prothrombin Time 11.3 SEC (9.30-11.50) Prothromb Time International Ratio 1.1 (0.9-1.1) Activated Partial Thromboplast Time 30 SEC (23-33) Sodium Level 142 mEQ/L (135-145) Potassium Level 3.1 mEQ/L (3.4-4.9) L Chloride Level 106 mEQ/L (98-107) Carbon Dioxide Level 18 mEQ/L (20-30) L Anion Gap 18 (5-15) H Blood Urea Nitrogen 14 mg/dL (7-23) Creatinine 0.8 mg/dL (0.7-1.2) Estimat Glomerular Filtration Rate mL/min (>60) Glucose Level 102 mg/dL (74-106) Calcium Level 7.2 mg/dL (8.6-10.2) L Total Bilirubin 0.9 mg/dL (0.0-1.2) Aspartate Amino Transf (AST/SGOT) 22 U/L (5-40) Alanine Aminotransferase (ALT/SGPT) 56 U/L (3-41) H Alkaline Phosphatase 313 U/L (40-129) H Total Protein 5.0 g/dL (6.6-8.7) L Albumin 2.4 g/dL (3.5-5.2) L Globulin 2.6 g/dL Albumin/Globulin Ratio 0.9 (1.0-2.7) L Plan Problems: (1) Cholecystitis Assessment & Plan: 75 M acute cholecystitis / choledocholithiasis. Afebrile, HD stable, labs improving. Had ERCP with stone removal this AM. Doing well. Recommend Lap vs open Cholecystectomy. will have to check for authorization first If authorized, will proceed with cholecystectomy tomorrow if not, will need to follow up with PCP for referral to surgeon for cholecystectomy upon discharge. (2) Common bile duct (CBD) obstruction (3) Abdominal pain (4) Sepsis Pedrito Millan MD Oct 02, 2016 10:19
--- NOTE | 2016-10-02 12:50 | Cardiology Report ---
APPROVED REPORT EKG Measurement Heart [id number] Sinus tachycardia Minimal voltage criteria for LVH, may be normal variant Inferior infarct, age undetermined Abnormal ECG
--- NOTE | 2016-10-02 18:27 | Procedure Note ---
SURGEON: Wellington Jarvis M.D. ANESTHESIA: Per Rosario MORGAN. INSTRUMENT: Olympus adult ERCP scope. INDICATION: Choledocholithiasis. REASON FOR PROCEDURE: The procedure, risks, benefits, and possible consequences, including hemorrhage, aspiration, perforation and infection, and alternative treatments, were explained to the patient/legal guardian by Dr. Wellington Jarvis and the patient/legal guardian understood and accepted these risks. PROCEDURE: After informed consent was obtained and the patient was adequately sedated, Olympus ERCP scope was advanced from mouth into the second portion of duodenum. Ampulla was seen at the 12 o'clock position. Looking down making this procedure will be challenging. Initially, using pancreatic duct was cannulated without any injection just to wire insertion maybe twice. Then, the common bile duct was cannulated. Initial cholangiogram showed common bile duct to about 7 to 8 mm with two filling defects in the distal common bile duct suggestive of a stone. Then, over a guidewire, 95% sphincterotomy was performed. Then, a balloon was used to sweep the duct multiple times and to remove 2 black colored small stones from the distal common bile duct. I think one of the stones was impacting the ampulla that is why may be cannulation was difficult because as soon as we performed the sphincterotomy pieces of the stone came out. After the stone removal balloon occlusion cholangiogram was performed, which showed no further filling defect in the common bile duct. The flow of contrast was good from the common bile duct into the duodenum so no stent was placed at this time. The patient tolerated the procedure well without any complication. SUMMARY FINDINGS: Status post endoscopic retrograde cholangiopancreatography sphincterotomy and stone removal. RECOMMENDATIONS: The patient to be kept NPO for today. Follow laboratories for tomorrow. Follow with the surgery for possible cholecystectomy. Plan to repeat liver function tests for tomorrow morning. Wellington Jarvis M.D. DR: AIMEE JOB#: [id number] CC:
--- NOTE | 2016-10-02 18:49 | Infectious Diseases Prog Note ---
Assessment/Plan Assessment/Plan A: The patient is a 75-year-old male with cholangitis vs cholecystitis 10/02 SP Status post endoscopic retrograde cholangiopancreatography sphincterotomy and stone removal Fever Bcx: GPC ( Ro VRE ) CAD Hyperlipidemia Diabetes, Hypertension hx of myocardial infarction ex-smoker PLAN: cont patient on IV Zosyn d# 3 , add Zyvox s# 1 Monitor CBC. Monitor BMP. Monitor blood culture. We will follow GI and surgical recommendations Subjective Constitutional: Denies: anorexia, chills, drenching sweats, fatigue, fever, no symptoms, other Allergies: Coded Allergies: No Known Allergies (Unverified , 09/29/16) Objective Vital Signs Last 24 Hour Vital Signs Date Time Temp Pulse Resp B/P Pulse Ox O2 Delivery O2 Flow Rate FiO2 10/02/16 16:00 97.9 54 18 132/62 99 Room Air 10/02/16 12:00 56 10/02/16 11:24 96.8 66 20 125/57 96 Room Air 10/02/16 09:30 53 10/02/16 08:45 48 22 142/67 96 Room Air 48 10/02/16 08:38 74 100 10/02/16 08:30 98.8 47 23 140/66 97 Room Air 47 10/02/16 08:20 49 21 144/68 97 Room Air 49 10/02/16 08:13 74 100 10/02/16 08:10 45 19 141/65 100 Simple Mask 6.0 45 10/02/16 08:05 48 20 145/67 100 Simple Mask 6.0 48 10/02/16 08:02 98.9 44 23 146/61 100 Simple Mask 6.0 44 10/02/16 04:10 97.0 65 20 141/70 95 Room Air 10/02/16 04:00 54 10/02/16 00:03 97.0 70 20 136/70 98 Room Air 10/02/16 00:00 52 10/01/16 20:00 74 10/01/16 20:00 97.5 64 20 131/68 98 Room Air Height (Feet): 5 Height (Inches): 7.00 Weight (Pounds): 152 HEENT: atraumatic Respiratory/Chest: normal breath sounds Cardiovascular: regularly irregular Abdomen: non distended Laboratory Tests Test 10/02/16 05:10 White Blood Count 5.8 K/UL (4.8-10.8) Red Blood Count 3.40 M/UL (4.70-6.10) L Hemoglobin 10.8 G/DL (14.2-18.0) L Hematocrit 31.3 % (42.0-52.0) L Mean Corpuscular Volume 92 FL (80-99) Mean Corpuscular Hemoglobin 31.8 PG (27.0-31.0) H Mean Corpuscular Hemoglobin Concent 34.4 G/DL (32.0-36.0) Red Cell Distribution Width 12.3 % (11.6-14.8) Platelet Count 140 K/UL (150-450) L Mean Platelet Volume 7.6 FL (6.5-10.1) Neutrophils (%) (Auto) 69.0 % (45.0-75.0) Lymphocytes (%) (Auto) 21.6 % (20.0-45.0) Monocytes (%) (Auto) 7.7 % (1.0-10.0) Eosinophils (%) (Auto) 1.1 % (0.0-3.0) Basophils (%) (Auto) 0.6 % (0.0-2.0) Prothrombin Time 11.3 SEC (9.30-11.50) Prothromb Time International Ratio 1.1 (0.9-1.1) Activated Partial Thromboplast Time 30 SEC (23-33) Sodium Level 142 mEQ/L (135-145) Potassium Level 3.1 mEQ/L (3.4-4.9) L Chloride Level 106 mEQ/L (98-107) Carbon Dioxide Level 18 mEQ/L (20-30) L Anion Gap 18 (5-15) H Blood Urea Nitrogen 14 mg/dL (7-23) Creatinine 0.8 mg/dL (0.7-1.2) Estimat Glomerular Filtration Rate mL/min (>60) Glucose Level 102 mg/dL (74-106) Calcium Level 7.2 mg/dL (8.6-10.2) L Total Bilirubin 0.9 mg/dL (0.0-1.2) Aspartate Amino Transf (AST/SGOT) 22 U/L (5-40) Alanine Aminotransferase (ALT/SGPT) 56 U/L (3-41) H Alkaline Phosphatase 313 U/L (40-129) H Total Protein 5.0 g/dL (6.6-8.7) L Albumin 2.4 g/dL (3.5-5.2) L Globulin 2.6 g/dL Albumin/Globulin Ratio 0.9 (1.0-2.7) L Current Medications Medications (Trade) Dose Ordered Sig/Madina Route PRN Reason Start Time Stop Time Status Last Admin Dose Admin Acetaminophen (Tylenol) 500 mg EVERY 6 HOURS PRN ORAL Mild Pain/Temp > 100.5 09/29/16 13:15 10/29/16 13:14 Aspirin 81 mg 81 mg DAILY ORAL 09/30/16 09:00 10/30/16 08:59 10/02/16 09:09 Dextrose (Dextrose 50%) STAT PRN IV Hypoglycemia 09/29/16 13:15 10/29/16 13:14 Famotidine (Pepcid I.v.) 20 mg Q12HR IVP 09/29/16 21:00 10/29/16 20:59 10/02/16 09:53 Heparin Sodium (Porcine) (Heparin 5000 units/ml) 5,000 units EVERY 12 HOURS SUBQ 09/29/16 21:00 10/29/16 20:59 09/30/16 09:20 Insulin Aspart (NovoLOG) BEFORE MEALS AND HS SUBQ 09/29/16 16:30 10/29/16 16:29 Morphine Sulfate (Morphine Sulfate) 2 mg Q8HR PRN IVP Severe Pain (Pain Scale 7-10) 09/29/16 13:15 10/06/16 13:14 Pantoprazole (Protonix) 40 mg DAILY ORAL 09/30/16 09:00 10/30/16 08:59 10/02/16 09:09 Piperacillin Sod/ Tazobactam Sod/ Dextrose (Zosyn/D5W) 110 ml @ 27.5 mls/hr Q8H IVPB 09/29/16 18:00 10/06/16 17:59 10/02/16 18:15 Pravastatin Sodium (Pravachol) 20 mg BEDTIME ORAL 09/29/16 21:00 10/29/16 20:59 10/01/16 20:21 Sodium Chloride (Sodium Chloride 1000ml bag) 1,000 ml @ 100 mls/hr Q10H IV 10/01/16 18:00 10/31/16 17:59 10/02/16 14:08 ROSLYN KEN M.D. Oct 02, 2016 18:49
[2016-10-02] MEDS: Acetaminophen 500mg (ES) tab ORAL PRN (22:05)
[2016-10-03] VITALS (11 sets, daily range): BP systolic 135–161; BP diastolic 59–79
[2016-10-03] MEDS: Piperacillin/Tazobactam 3.375 GM in D5W 110 ML IVPB SCH ×3 (01:56→17:44)
[2016-10-03] MEDS: NovoLOG Insulin Flexpen SUBQ SCH ×4 (06:30→21:32)
--- NOTE | 2016-10-03 07:59 | General Progress Note ---
Assessment/Plan Status: stable Assessment/Plan 1- Sever Sepsis: controlled 2-Abn LFT: Improving 3- Cholangitis/ acute cholecystitis 4- Abn BNP 5-UTI 5- Gi-DVT Plan: planned cholecystectomy status post ERCP Subjective ROS Limited/Unobtainable: No Constitutional: Reports: no symptoms HEENT: Reports: no symptoms Cardiovascular: Reports: no symptoms Gastrointestinal/Abdominal: Reports: abdomen distended, abdominal pain Allergies: Coded Allergies: No Known Allergies (Unverified , 09/29/16) Objective Last 24 Hour Vital Signs Date Time Temp Pulse Resp B/P Pulse Ox O2 Delivery O2 Flow Rate FiO2 10/03/16 04:00 45 10/03/16 04:00 97.0 52 18 140/70 96 Room Air 10/03/16 00:10 97.9 54 20 139/69 96 Room Air 10/03/16 00:00 52 10/02/16 20:00 54 10/02/16 20:00 97.7 61 18 142/76 97 Room Air 10/02/16 16:00 62 10/02/16 16:00 97.9 54 18 132/62 99 Room Air 10/02/16 12:00 56 10/02/16 11:24 96.8 66 20 125/57 96 Room Air 10/02/16 09:30 53 10/02/16 08:45 48 22 142/67 96 Room Air 48 10/02/16 08:38 74 100 10/02/16 08:30 98.8 47 23 140/66 97 Room Air 47 10/02/16 08:20 49 21 144/68 97 Room Air 49 10/02/16 08:13 74 100 10/02/16 08:10 45 19 141/65 100 Simple Mask 6.0 45 10/02/16 08:05 48 20 145/67 100 Simple Mask 6.0 48 10/02/16 08:02 98.9 44 23 146/61 100 Simple Mask 6.0 44 Intake and Output 10/02/16 10/03/16 19:00 07:00 Intake Total 1160.0 ml 1720.0 ml Output Total 0 ml 400 ml Balance 1160.0 ml 1320.0 ml IV Total 1160.0 ml 1720.0 ml Output Urine Total 400 ml Estimated Blood Loss 0 ml # Voids 5 Laboratory Tests 10/03/16 06:20: White Blood Count [Pending], Red Blood Count [Pending], Hemoglobin [Pending], Hematocrit [Pending], Mean Corpuscular Volume [Pending], Mean Corpuscular Hemoglobin [Pending], Mean Corpuscular Hemoglobin Concent [Pending], Red Cell Distribution Width [Pending], Platelet Count [Pending], Mean Platelet Volume [ Pending], Neutrophils (%) (Auto) [Pending], Lymphocytes (%) (Auto) [Pending], Monocytes (%) (Auto) [Pending], Eosinophils (%) (Auto) [Pending], Basophils (%) (Auto) [Pending], Sodium Level [Pending], Potassium Level [Pending], Chloride Level [Pending], Carbon Dioxide Level [Pending], Blood Urea Nitrogen [Pending], Creatinine [Pending], Estimat Glomerular Filtration Rate [Pending], Glucose Level [Pending], Calcium Level [Pending], Total Bilirubin [Pending], Aspartate Amino Transf (AST/SGOT) [Pending], Alanine Aminotransferase (ALT/SGPT) [Pending] , Alkaline Phosphatase [Pending], Total Protein [Pending], Albumin [Pending], Globulin [Pending] Height (Feet): 5 Height (Inches): 7.00 Weight (Pounds): 152 General Appearance: no apparent distress EENT: PERRL/EOMI Neck: supple Cardiovascular: normal rate Respiratory/Chest: lungs clear Abdomen: soft Extremities: non-tender 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
[2016-10-03 08:06] LABS: BASOPHILS % (AUTO) 0.7 % (0.0-2.0); EOSINOPHILS % (AUTO) 1.9 % (0.0-3.0); LYMPHOCYTES % (AUTO) 21.3 % (20.0-45.0); MEAN CORPUSCULAR HEMOGLOBIN 32.5 PG (27.0-31.0); MEAN CORPUSCULAR VOLUME 90 FL (80-99); MEAN PLATELET VOLUME 8.2 FL (6.5-10.1); MONOCYTES % (AUTO) 10.1 % (1.0-10.0); NEUTROPHILS % (AUTO) 66.1 % (45.0-75.0); PLATELET COUNT 172 K/UL (150-450); RED BLOOD COUNT 3.69 M/UL (4.70-6.10); RED CELL DISTRIBUTION WIDTH 12.2 % (11.6-14.8); WHITE BLOOD COUNT 6.7 K/UL (4.8-10.8)
[2016-10-03] MEDS: Famotidine 20 MG/ 2ML VIAL IVP SCH ×2 (08:08→21:33)
[2016-10-03 08:28] LABS: ALANINE AMINOTRANSFERASE 53 U/L (3-41); ALBUMIN/GLOBULIN RATIO 0.8 (1.0-2.7); ANION GAP 16 (5-15); ASPARTATE AMINO TRANSFERASE 26 U/L (5-40); CALCIUM 8.2 mg/dL (8.6-10.2); CARBON DIOXIDE 19 mEQ/L (20-30); CHLORIDE 106 mEQ/L (98-107); CREATININE 0.8 mg/dL (0.7-1.2); HEMOLYSIS 2; POTASSIUM 3.5 mEQ/L (3.4-4.9); SODIUM 141 mEQ/L (135-145); TOTAL PROTEIN 5.3 g/dL (6.6-8.7)
[2016-10-03] MEDS: Aspirin Baby 81mg ORAL SCH (08:48)
[2016-10-03] MEDS: Heparin 5000 units/ml inj SUBQ SCH ×2 (08:48→21:32)
[2016-10-03] MEDS ORDERED: Iothalamate Meglumine 60% 30ML INJ ONE (09:48)
[2016-10-03] MEDS ORDERED: Bupivacaine w/Epi 0.25% 30ml Vial INJ ONE (09:48)
--- NOTE | 2016-10-03 10:13 | GI Progress Note ---
Assessment/Plan Problems: (1) Epigastric abdominal pain ICD Codes: R10.13 - Epigastric pain SNOMED: 45159802 (2) Choledocholithiasis ICD Codes: K80.50 - Calculus of bile duct without cholangitis or cholecystitis without obstruction SNOMED: 187274442 (3) LFTs abnormal ICD Codes: R79.89 - Other specified abnormal findings of blood chemistry SNOMED: 192745509 (4) Common bile duct (CBD) obstruction ICD Codes: K83.1 - Obstruction of bile duct SNOMED: 04823448, 79746787 (5) Abdominal pain ICD Codes: R10.9 - Unspecified abdominal pain SNOMED: 79662025 Qualifiers: Qualified Codes: R10.11 - Right upper quadrant pain Status: progressing Status Narrative Discussed with Dr. Jarvis. Assessment/Plan Date of Service: 09/29/16 SURGEON: Wellington Jarvis M.D. INDICATION: Choledocholithiasis. REASON FOR PROCEDURE: The procedure, risks, benefits, and possible consequences, including hemorrhage, aspiration, perforation and infection, and alternative treatments, were explained to the patient/legal guardian by Dr. Wellington Jarvis and the patient/legal guardian understood and accepted these risks. SUMMARY FINDINGS: Status post endoscopic retrograde cholangiopancreatography sphincterotomy and stone removal. RECOMMENDATIONS: pt scheduled for lap chalo today fu biopsies repeat LFTs pain mgmt ppi fu labs Subjective Gastrointestinal/Abdominal: Reports: abdominal pain - improved Objective Last 24 Hour Vital Signs Date Time Temp Pulse Resp B/P Pulse Ox O2 Delivery O2 Flow Rate FiO2 10/03/16 08:20 97.0 51 18 148/61 98 Room Air 10/03/16 04:00 45 10/03/16 04:00 97.0 52 18 140/70 96 Room Air 10/03/16 00:10 97.9 54 20 139/69 96 Room Air 10/03/16 00:00 52 10/02/16 20:00 54 10/02/16 20:00 97.7 61 18 142/76 97 Room Air 10/02/16 16:00 62 10/02/16 16:00 97.9 54 18 132/62 99 Room Air 10/02/16 12:00 56 10/02/16 11:24 96.8 66 20 125/57 96 Room Air Intake and Output 10/02/16 10/03/16 19:00 07:00 Intake Total 1160.0 ml 1720.0 ml Output Total 0 ml 400 ml Balance 1160.0 ml 1320.0 ml IV Total 1160.0 ml 1720.0 ml Output Urine Total 400 ml Estimated Blood Loss 0 ml # Voids 5 Laboratory Tests Test 10/03/16 06:20 White Blood Count 6.7 K/UL (4.8-10.8) Red Blood Count 3.69 M/UL (4.70-6.10) L Hemoglobin 12.0 G/DL (14.2-18.0) L Hematocrit 33.4 % (42.0-52.0) L Mean Corpuscular Volume 90 FL (80-99) Mean Corpuscular Hemoglobin 32.5 PG (27.0-31.0) H Mean Corpuscular Hemoglobin Concent 36.0 G/DL (32.0-36.0) Red Cell Distribution Width 12.2 % (11.6-14.8) Platelet Count 172 K/UL (150-450) Mean Platelet Volume 8.2 FL (6.5-10.1) Neutrophils (%) (Auto) 66.1 % (45.0-75.0) Lymphocytes (%) (Auto) 21.3 % (20.0-45.0) Monocytes (%) (Auto) 10.1 % (1.0-10.0) H Eosinophils (%) (Auto) 1.9 % (0.0-3.0) Basophils (%) (Auto) 0.7 % (0.0-2.0) Sodium Level 141 mEQ/L (135-145) Potassium Level 3.5 mEQ/L (3.4-4.9) Chloride Level 106 mEQ/L (98-107) Carbon Dioxide Level 19 mEQ/L (20-30) L Anion Gap 16 (5-15) H Blood Urea Nitrogen 10 mg/dL (7-23) Creatinine 0.8 mg/dL (0.7-1.2) Estimat Glomerular Filtration Rate mL/min (>60) Glucose Level 115 mg/dL (74-106) H Calcium Level 8.2 mg/dL (8.6-10.2) L Total Bilirubin 1.0 mg/dL (0.0-1.2) Aspartate Amino Transf (AST/SGOT) 26 U/L (5-40) Alanine Aminotransferase (ALT/SGPT) 53 U/L (3-41) H Alkaline Phosphatase 471 U/L (40-129) H Total Protein 5.3 g/dL (6.6-8.7) L Albumin 2.5 g/dL (3.5-5.2) L Globulin 2.8 g/dL Albumin/Globulin Ratio 0.8 (1.0-2.7) L Height (Feet): 5 Height (Inches): 7.00 Weight (Pounds): 152 General Appearance: no apparent distress, alert Cardiovascular: normal rate Respiratory/Chest: normal breath sounds, no respiratory distress Abdominal Exam: normal bowel sounds, non tender, soft Extremities: normal range of motion Sweta Diaz N.P. Oct 03, 2016 10:13
--- NOTE | 2016-10-03 11:11 | Pre-Procedure Note/Attestation ---
Pre-Procedure Note/Attestation Complete Prior to Procedure Procedure Narrative: laparoscopic cholecystectomy, possible open Indications for Procedure Pre-Operative Diagnosis: acute cholecystitis, choledocholithiasis Attestation I attest that I discussed the nature of the procedure; its benefits; risks and complications; and alternatives (and the risks and benefits of such alternatives ), prior to the procedure, with the patient (or the patient's legal outside industrial sales representative). I attest that, if there was a reasonable possibility of needing a blood transfusion, the patient (or the patient's legal outside industrial sales representative) was given the [facility] standardized written summary, pursuant to the [place] Blood Safety Act ([place] Health and Safety Code # 1645, as amended). I attest that I re-evaluated the patient just prior to the surgery and that there has been no change in the patient's H&P, except as documented below: Pedrito Millan Oct 03, 2016 11:11
--- NOTE | 2016-10-03 11:27 | Infectious Diseases Prog Note ---
Assessment/Plan Assessment/Plan A: The patient is a 75-year-old male with cholangitis vs cholecystitis 10/02 SP Status post endoscopic retrograde cholangiopancreatography sphincterotomy and stone removal Fever Bcx: GPC ( Ro VRE ) CAD Hyperlipidemia Diabetes, Hypertension hx of myocardial infarction ex-smoker PLAN: cont patient on IV Zosyn d# 4 , add Zyvox s# 2 Monitor CBC. Monitor BMP. Monitor blood culture. We will follow GI and surgical recommendations Lap Tressa today Subjective Constitutional: Denies: anorexia, chills, drenching sweats, fatigue, fever, no symptoms, other Allergies: Coded Allergies: No Known Allergies (Unverified , 09/29/16) Objective Vital Signs Last 24 Hour Vital Signs Date Time Temp Pulse Resp B/P Pulse Ox O2 Delivery O2 Flow Rate FiO2 10/03/16 08:20 97.0 51 18 148/61 98 Room Air 10/03/16 04:00 45 10/03/16 04:00 97.0 52 18 140/70 96 Room Air 10/03/16 00:10 97.9 54 20 139/69 96 Room Air 10/03/16 00:00 52 10/02/16 20:00 54 10/02/16 20:00 97.7 61 18 142/76 97 Room Air 10/02/16 16:00 62 10/02/16 16:00 97.9 54 18 132/62 99 Room Air 10/02/16 12:00 56 Height (Feet): 5 Height (Inches): 7.00 Weight (Pounds): 152 HEENT: anicteric Respiratory/Chest: normal breath sounds Cardiovascular: normal rate Abdomen: soft, non tender Laboratory Tests Test 10/03/16 06:20 White Blood Count 6.7 K/UL (4.8-10.8) Red Blood Count 3.69 M/UL (4.70-6.10) L Hemoglobin 12.0 G/DL (14.2-18.0) L Hematocrit 33.4 % (42.0-52.0) L Mean Corpuscular Volume 90 FL (80-99) Mean Corpuscular Hemoglobin 32.5 PG (27.0-31.0) H Mean Corpuscular Hemoglobin Concent 36.0 G/DL (32.0-36.0) Red Cell Distribution Width 12.2 % (11.6-14.8) Platelet Count 172 K/UL (150-450) Mean Platelet Volume 8.2 FL (6.5-10.1) Neutrophils (%) (Auto) 66.1 % (45.0-75.0) Lymphocytes (%) (Auto) 21.3 % (20.0-45.0) Monocytes (%) (Auto) 10.1 % (1.0-10.0) H Eosinophils (%) (Auto) 1.9 % (0.0-3.0) Basophils (%) (Auto) 0.7 % (0.0-2.0) Sodium Level 141 mEQ/L (135-145) Potassium Level 3.5 mEQ/L (3.4-4.9) Chloride Level 106 mEQ/L (98-107) Carbon Dioxide Level 19 mEQ/L (20-30) L Anion Gap 16 (5-15) H Blood Urea Nitrogen 10 mg/dL (7-23) Creatinine 0.8 mg/dL (0.7-1.2) Estimat Glomerular Filtration Rate mL/min (>60) Glucose Level 115 mg/dL (74-106) H Calcium Level 8.2 mg/dL (8.6-10.2) L Total Bilirubin 1.0 mg/dL (0.0-1.2) Aspartate Amino Transf (AST/SGOT) 26 U/L (5-40) Alanine Aminotransferase (ALT/SGPT) 53 U/L (3-41) H Alkaline Phosphatase 471 U/L (40-129) H Total Protein 5.3 g/dL (6.6-8.7) L Albumin 2.5 g/dL (3.5-5.2) L Globulin 2.8 g/dL Albumin/Globulin Ratio 0.8 (1.0-2.7) L Current Medications Medications (Trade) Dose Ordered Sig/Madina Route PRN Reason Start Time Stop Time Status Last Admin Dose Admin Acetaminophen (Tylenol) 500 mg EVERY 6 HOURS PRN ORAL Mild Pain/Temp > 100.5 09/29/16 13:15 10/29/16 13:14 10/02/16 22:05 Aspirin 81 mg 81 mg DAILY ORAL 09/30/16 09:00 10/30/16 08:59 10/02/16 09:09 Dextrose (Dextrose 50%) STAT PRN IV Hypoglycemia 09/29/16 13:15 10/29/16 13:14 Famotidine (Pepcid I.v.) 20 mg Q12HR IVP 09/29/16 21:00 10/29/16 20:59 10/03/16 08:08 Heparin Sodium (Porcine) (Heparin 5000 units/ml) 5,000 units EVERY 12 HOURS SUBQ 09/29/16 21:00 10/29/16 20:59 09/30/16 09:20 Insulin Aspart (NovoLOG) BEFORE MEALS AND HS SUBQ 09/29/16 16:30 10/29/16 16:29 Linezolid (Zyvox) 300 ml @ 300 mls/hr Q12HR IVPB 10/02/16 21:00 10/09/16 20:59 10/03/16 08:08 Morphine Sulfate (Morphine Sulfate) 2 mg Q8HR PRN IVP Severe Pain (Pain Scale 7-10) 09/29/16 13:15 10/06/16 13:14 Pantoprazole (Protonix) 40 mg DAILY ORAL 09/30/16 09:00 10/30/16 08:59 10/03/16 08:08 Piperacillin Sod/ Tazobactam Sod/ Dextrose (Zosyn/D5W) 110 ml @ 27.5 mls/hr Q8H IVPB 09/29/16 18:00 10/06/16 17:59 10/03/16 10:09 Pravastatin Sodium (Pravachol) 20 mg BEDTIME ORAL 09/29/16 21:00 10/29/16 20:59 10/02/16 22:00 Sodium Chloride 1,000 ml @ 100 mls/hr Q10H IV 10/01/16 18:00 10/31/16 17:59 10/03/16 10:09 ROSLYN KEN M.D. Oct 03, 2016 11:27
[2016-10-03] MEDS ORDERED: Lidocaine 1% MPF 10mg/ml 5ml ONE (12:00)
[2016-10-03] MEDS ORDERED: Glycopyrrolate 0.2mg/ml 1ml Vial ONE (12:00)
[2016-10-03] MEDS ORDERED: Neostigmine 1mg/ml 10ml Inj ONE (12:00)
[2016-10-03] MEDS ORDERED: NS Irrig 1000ml ONE (12:00)
[2016-10-03] MEDS ORDERED: Midazolam 2mg/2ml Inj ONE ×2 (12:00)
[2016-10-03] MEDS ORDERED: Zemuron 50mg/5ml Inj IV ONE (12:00)
[2016-10-03] MEDS ORDERED: Propofol 10mg/ml 20ml IV ONE (12:00)
[2016-10-03] MEDS ORDERED: fentaNYL 100 mcg/2 mL IV ONE (12:00)
[2016-10-03] MEDS ORDERED: Sterile Water Irrig 1000ml IRRIG ONE (12:00)
[2016-10-03] MEDS ORDERED: LR 1000ml ONE (12:00)
--- NOTE | 2016-10-03 12:12 | Anethesia Preoperative Eval ---
Anesthesia Pre-op PMH/ROS General Date of Evaluation: Oct 03, 2016 Time of Evaluation: 12:11 Anesthesiologist: Brigitte ASA Score: ASA 3 Mallampati Score Class I : Soft palate, uvula, fauces, pillars visible Class II: Soft palate, uvula, fauces visible Class III: Soft palate, base of uvula visible Class IV: Only hard plate visible Surgeon: Monty Diagnosis: Abd Pain Surgical Procedure: Laparoscopic Cholecystectomy Anesthesia History: none Social History: current smoker Family History: no anesthesia problems Allergies: Coded Allergies: No Known Allergies (Unverified , 09/29/16) Medications: see eMAR Past Medical History Cardiovascular: Reports: CAD, HTN, other - HL Hematology/Immune: Reports: anemia PSxH Narrative: 1. Severe sepsis. 2. Obstructive choledocholithiasis. 3. Acute on chronic cholecystitis. 4. Coronary artery disease. 5. History of with evidence of acute coronary syndrome. 6. Abnormal BNP, possibility of congestive heart failure cannot be excluded. 7. Diabetes type 2. 8. Hyperlipidemia. 9. Hypertension. Anesthesia Pre-op Phys. Exam Physician Exam Last Vital Signs Date Time Temp Pulse Resp B/P Pulse Ox O2 Delivery O2 Flow Rate FiO2 10/03/16 08:20 97.0 51 18 148/61 98 Room Air 10/02/16 08:10 6.0 Constitutional: NAD Neurologic: CN 2-12 intact Cardiovascular: RRR Respiratory: CTA Gastrointestinal: S/NT/ND Airway Exam Mallampati Score: Class III MO: limited ROM: limited Teeth: intact Anesthesia Pre-op A/P Labs Hematology Test 10/03/16 06:20 White Blood Count 6.7 K/UL (4.8-10.8) Red Blood Count 3.69 M/UL (4.70-6.10) L Hemoglobin 12.0 G/DL (14.2-18.0) L Hematocrit 33.4 % (42.0-52.0) L Mean Corpuscular Volume 90 FL (80-99) Mean Corpuscular Hemoglobin 32.5 PG (27.0-31.0) H Mean Corpuscular Hemoglobin Concent 36.0 G/DL (32.0-36.0) Red Cell Distribution Width 12.2 % (11.6-14.8) Platelet Count 172 K/UL (150-450) Mean Platelet Volume 8.2 FL (6.5-10.1) Neutrophils (%) (Auto) 66.1 % (45.0-75.0) Lymphocytes (%) (Auto) 21.3 % (20.0-45.0) Monocytes (%) (Auto) 10.1 % (1.0-10.0) H Eosinophils (%) (Auto) 1.9 % (0.0-3.0) Basophils (%) (Auto) 0.7 % (0.0-2.0) Chemistry Test 10/03/16 06:20 Sodium Level 141 mEQ/L (135-145) Potassium Level 3.5 mEQ/L (3.4-4.9) Chloride Level 106 mEQ/L (98-107) Carbon Dioxide Level 19 mEQ/L (20-30) L Anion Gap 16 (5-15) H Blood Urea Nitrogen 10 mg/dL (7-23) Creatinine 0.8 mg/dL (0.7-1.2) Estimat Glomerular Filtration Rate mL/min (>60) Glucose Level 115 mg/dL (74-106) H Calcium Level 8.2 mg/dL (8.6-10.2) L Total Bilirubin 1.0 mg/dL (0.0-1.2) Aspartate Amino Transf (AST/SGOT) 26 U/L (5-40) Alanine Aminotransferase (ALT/SGPT) 53 U/L (3-41) H Alkaline Phosphatase 471 U/L (40-129) H Total Protein 5.3 g/dL (6.6-8.7) L Albumin 2.5 g/dL (3.5-5.2) L Globulin 2.8 g/dL Albumin/Globulin Ratio 0.8 (1.0-2.7) L Risk Assessment & Plan Assessment: ASA 3 Plan: GA, BIS, Glidescope Status Change Before Surgery: No Pre-Antibiotics Dru Grams Ancef IV Given Within 1 Hr of Incision: Yes Time Given: 12:26 Horace Briggs MD Oct 03, 2016 12:12
[2016-10-03] MEDS ORDERED: Oxycodone/Acetaminophen 5-325 ORAL PRN (12:15)
[2016-10-03] MEDS ORDERED: Metoclopramide 10mg/2ml Inj IVP PRN (12:15)
[2016-10-03] MEDS ORDERED: Hydromorphone 0.5mg/0.5ml inj IVP PRN (12:15)
[2016-10-03] MEDS ORDERED: LORazepam Inj 2mg/ml 1ml IV PRN (12:15)
[2016-10-03] MEDS ORDERED: Atropine Inj 1mg/10ml Syr IV PRN (12:15)
[2016-10-03] MEDS ORDERED: Meperidine 25mg/ml Inj IV PRN (12:15)
[2016-10-03] MEDS ORDERED: LR 1000ml 1,000 ML IVLG SCH (12:15)
[2016-10-03] MEDS ORDERED: Norco 5mg/325mg tab ORAL PRN (12:15)
[2016-10-03] MEDS ORDERED: DiphenhydrAMINE 50mg/ml Inj IVP PRN (12:15)
[2016-10-03] MEDS ORDERED: Norco 7.5mg/325mg tab ORAL PRN (12:15)
[2016-10-03] MEDS ORDERED: Labetalol 5mg/ml 20ml vial IV PRN (12:15)
[2016-10-03] MEDS ORDERED: NS Irrig 1000ml IRRIG ONE (12:15)
[2016-10-03] MEDS ORDERED: fentaNYL 100 mcg/2 mL IV PRN (12:15)
[2016-10-03] MEDS ORDERED: Ketorolac 30mg Inj IV PRN (12:15)
[2016-10-03] MEDS ORDERED: Midazolam 2mg/2ml Inj IVP PRN (12:15)
[2016-10-03] MEDS ORDERED: Ketorolac 60mg Inj IV PRN (12:15)
--- NOTE | 2016-10-03 12:18 | Immediate Post-Op Evaluation ---
Immediate Post-Op Evalulation Immediate Post-Op Evalulation Procedure: Laparoscopic Cholecystectomy Date of Evaluation: Oct 03, 2016 Time of Evaluation: 12:11 IV Fluids: 800 LR Blood Products: 1,000 ml Alb Estimated Blood Loss: 1,000 ML Urinary Output: 0 Blood Pressure Systolic: 155 Blood Pressure Diastolic: 79 Pulse Rate: 67 Respiratory Rate: 16 O2 Sat by Pulse Oximetry: 96 Temperature (Fahrenheit): 97.7 Pain Score (1-10): 2 Nausea: No Vomiting: No Complications 0 Patient Status: awake, reacts, patent, extubated, none Hydration Status: adequate Dru Grams Ancef IV Given Within 1 Hr of Incision: Yes Time Given: 12:26 Horace Briggs MD Oct 03, 2016 12:18
[2016-10-03] MEDS ORDERED: Surgicel 4in x 8in TOPIC ONE ×2 (14:01→14:56)
--- NOTE | 2016-10-03 14:02 | Diagnostic Imaging Report ---
Indication: Dyspnea Comparison: None A single view chest radiograph was obtained. Findings: Cardiomediastinal appearance is within normal limits for age. Pulmonary vascularity is appropriate. The diaphragmatic contour is smooth and costophrenic angles are sharp. No pleural effusions are identified. The bones are unremarkable. Impression: No acute findings
--- NOTE | 2016-10-03 15:30 | Brief Operative Note ---
Immediate Post Operative Note Operative Note Pre-op Diagnosis: acute cholecystitis, choledocholithiasis Procedure: laparoscopic converted to open cholecystectomy Post-op Diagnosis: same Findings: consistent w/pre-op dx studies, other - dense adhesions near hilum Surgeon: Monty Vmware Administrator: Nomi Anesthesiologist: Allen Anesthesia: general Specimen: yes Complications: none Condition: stable Fluids: see anesthesia records Estimated Blood Loss: volume - 1000cc Drains: ALEKSEY Implant(s) used?: No Pedrito Millan Oct 03, 2016 15:30
[2016-10-03 15:57] LABS: MEAN CORPUSCULAR VOLUME 92 FL (80-99); MEAN PLATELET VOLUME 6.7 FL (6.5-10.1); PLATELET COUNT 164 K/UL (150-450); RED BLOOD COUNT 3.33 M/UL (4.70-6.10); RED CELL DISTRIBUTION WIDTH 12.4 % (11.6-14.8); WHITE BLOOD COUNT 12.9 K/UL (4.8-10.8)
[2016-10-03 16:00] LABS: BASOPHILS % (AUTO) 0.1 % (0.0-2.0); EOSINOPHILS % (AUTO) 0.4 % (0.0-3.0); MONOCYTES % (AUTO) 3.8 % (1.0-10.0); NEUTROPHILS % (AUTO) 87.3 % (45.0-75.0)
[2016-10-03] MEDS: Morphine Sulfate 2mg/ml Inj IVP PRN (17:39)
[2016-10-03] MEDS: D5 1/2NS w/KCl 20mEq 1,000 ML IV SCH ×2 (17:44→23:39)
[2016-10-03] MEDS: HYDROmorphone 1mg/ml Carpuject IVP PRN (21:44)
[2016-10-04] VITALS: BP 118/81
[2016-10-04] MEDS: Piperacillin/Tazobactam 3.375 GM in D5W 110 ML IVPB SCH ×3 (01:50→20:49)
[2016-10-04] MEDS: HYDROmorphone 1mg/ml Carpuject IVP PRN ×4 (02:08→17:35)
[2016-10-04 04:00] VITALS: BP 153/77
[2016-10-04] MEDS: Morphine Sulfate 2mg/ml Inj IVP PRN (05:18)
[2016-10-04] MEDS: NovoLOG Insulin Flexpen SUBQ SCH ×4 (06:10→20:49)
--- NOTE | 2016-10-04 08:07 | General Surgery Progress Note ---
General Surgery-Progress Note Subjective Procedure Performed laparoscopy, open cholecystectomy Chief Complaint: lots of pain, minimal voiding [id number] at a time, bladder full Symptoms: improved Additional Comments minimal ALEKSEY drainage Objective Last 24 Hour Vital Signs Date Time Temp Pulse Resp B/P Pulse Ox O2 Delivery O2 Flow Rate FiO2 10/04/16 06:08 98.4 10/04/16 04:00 52 10/04/16 04:00 97.5 60 20 153/77 100 Nasal Cannula 2.0 10/04/16 02:38 97.8 10/04/16 00:00 97.8 63 20 118/81 100 Nasal Cannula 2.0 10/03/16 22:00 58 10/03/16 20:00 97.3 64 18 150/75 Nasal Cannula 2.0 98 10/03/16 16:15 98.3 63 20 145/63 97 Nasal Cannula 3.0 10/03/16 16:09 56 20 135/64 97 Nasal Cannula 3.0 10/03/16 16:01 97.7 10/03/16 16:01 97.7 10/03/16 16:00 57 20 137/59 96 Nasal Cannula 3.0 10/03/16 15:48 62 20 151/65 96 Simple Mask 8.0 10/03/16 15:34 57 20 158/65 96 Simple Mask 8.0 10/03/16 15:29 62 20 161/63 96 Simple Mask 8.0 10/03/16 15:25 67 16 96 10/03/16 15:24 97.7 67 20 155/79 96 Simple Mask 8.0 10/03/16 08:20 97.0 51 18 148/61 98 Room Air I&O Intake and Output 10/03/16 10/04/16 19:00 07:00 Intake Total 2362.5 ml 1637.5 ml Output Total 1001 ml 650 ml Balance 1361.5 ml 987.5 ml IV Total 1362.5 ml 1637.5 ml Other 1000 ml Output Urine Total 1 ml 600 ml Drainage Total 50 ml Estimated Blood Loss 1000 ml Dressing: dry Wound: clean Drains: christie - in place , scanty bloody drainage Cardiovascular: RSR Respiratory: clear Abdomen: soft, distended - 2+ Extremities: no edema Laboratory Tests Test 10/03/16 15:45 White Blood Count 12.9 K/UL (4.8-10.8) #H Red Blood Count 3.33 M/UL (4.70-6.10) L Hemoglobin 10.7 G/DL (14.2-18.0) L Hematocrit 30.5 % (42.0-52.0) L Mean Corpuscular Volume 92 FL (80-99) Mean Corpuscular Hemoglobin 32.0 PG (27.0-31.0) H Mean Corpuscular Hemoglobin Concent 35.0 G/DL (32.0-36.0) Red Cell Distribution Width 12.4 % (11.6-14.8) Platelet Count 164 K/UL (150-450) Mean Platelet Volume 6.7 FL (6.5-10.1) Neutrophils (%) (Auto) 87.3 % (45.0-75.0) H Lymphocytes (%) (Auto) 8.0 % (20.0-45.0) L Monocytes (%) (Auto) 3.8 % (1.0-10.0) Eosinophils (%) (Auto) 0.4 % (0.0-3.0) Basophils (%) (Auto) 0.1 % (0.0-2.0) Additional Comments Stable s/p open cholecystectomy because of severe chronic andacute adhesions, bleeding from dissection of adhesions. Urinary retention Assessment Additional Comments Roass cath Sips of clear liquids. Labs in AXEL Marie Oct 04, 2016 08:07
[2016-10-04 08:16] LABS: BASOPHILS % (AUTO) 0.5 % (0.0-2.0); EOSINOPHILS % (AUTO) 0.8 % (0.0-3.0); LYMPHOCYTES % (AUTO) 15.7 % (20.0-45.0); MEAN CORPUSCULAR HEMOGLOBIN 32.5 PG (27.0-31.0); MEAN CORPUSCULAR VOLUME 90 FL (80-99); MEAN PLATELET VOLUME 7.8 FL (6.5-10.1); MONOCYTES % (AUTO) 8.1 % (1.0-10.0); PLATELET COUNT 189 K/UL (150-450); RED CELL DISTRIBUTION WIDTH 12.4 % (11.6-14.8); WHITE BLOOD COUNT 9.9 K/UL (4.8-10.8)
[2016-10-04 08:17] VITALS: BP 161/78
[2016-10-04 08:40] LABS: ALANINE AMINOTRANSFERASE 51 U/L (3-41); ALBUMIN/GLOBULIN RATIO 1.3 (1.0-2.7); ANION GAP 13 (5-15); ASPARTATE AMINO TRANSFERASE 40 U/L (5-40); CALCIUM 8.1 mg/dL (8.6-10.2); CARBON DIOXIDE 21 mEQ/L (20-30); CHLORIDE 103 mEQ/L (98-107); CREATININE 0.7 mg/dL (0.7-1.2); HEMOLYSIS 3; POTASSIUM 3.5 mEQ/L (3.4-4.9); SODIUM 137 mEQ/L (135-145); TOTAL PROTEIN 5.4 g/dL (6.6-8.7)
[2016-10-04] MEDS: Heparin 5000 units/ml inj SUBQ SCH ×2 (09:00→20:48)
[2016-10-04] MEDS: Aspirin Baby 81mg ORAL SCH (09:00)
[2016-10-04] MEDS: D5 1/2NS w/KCl 20mEq 1,000 ML IV SCH ×2 (09:27→19:20)
[2016-10-04] MEDS: Famotidine 20 MG/ 2ML VIAL IVP SCH ×2 (09:27→20:44)
[2016-10-04 09:32] LABS: MAGNESIUM 1.1 mg/dL (1.7-2.5); PHOSPHORUS 1.9 mg/dL (2.5-4.8)
--- NOTE | 2016-10-04 09:34 | Diagnostic Imaging Report ---
Indication: Abdominal pain Technique: Digital intraoperative images Comparison: None Findings: Intraoperative images document opacification of normal caliber biliary tree, subsequent deployment of stone extraction catheter. Impression: Intraoperative imaging, as described
--- NOTE | 2016-10-04 10:10 | General Progress Note ---
Assessment/Plan Status: stable Assessment/Plan 1- Sever Sepsis: controlled 2-Abn LFT: Improving 3- Cholangitis/ acute cholecystitis 4- Abn BNP 5-UTI 5- Gi-DVT Plan: status post ERCP status post Open cholecystectomy current management per surgery service Subjective ROS Limited/Unobtainable: No Gastrointestinal/Abdominal: Reports: abdomen distended, abdominal pain Allergies: Coded Allergies: No Known Allergies (Unverified , 09/29/16) Objective Last 24 Hour Vital Signs Date Time Temp Pulse Resp B/P Pulse Ox O2 Delivery O2 Flow Rate FiO2 10/04/16 09:59 97.0 10/04/16 08:17 97.0 70 20 161/78 99 Nasal Cannula 4.0 10/04/16 06:08 98.4 10/04/16 04:00 52 10/04/16 04:00 97.5 60 20 153/77 100 Nasal Cannula 2.0 10/04/16 00:00 97.8 63 20 118/81 100 Nasal Cannula 2.0 10/03/16 22:00 58 10/03/16 20:00 97.3 64 18 150/75 Nasal Cannula 2.0 98 10/03/16 16:15 98.3 63 20 145/63 97 Nasal Cannula 3.0 10/03/16 16:09 56 20 135/64 97 Nasal Cannula 3.0 10/03/16 16:01 97.7 10/03/16 16:01 97.7 10/03/16 16:00 57 20 137/59 96 Nasal Cannula 3.0 10/03/16 15:48 62 20 151/65 96 Simple Mask 8.0 10/03/16 15:34 57 20 158/65 96 Simple Mask 8.0 10/03/16 15:29 62 20 161/63 96 Simple Mask 8.0 10/03/16 15:25 67 16 96 10/03/16 15:24 97.7 67 20 155/79 96 Simple Mask 8.0 Intake and Output 10/03/16 10/04/16 19:00 07:00 Intake Total 2362.5 ml 1637.5 ml Output Total 1001 ml 650 ml Balance 1361.5 ml 987.5 ml IV Total 1362.5 ml 1637.5 ml Other 1000 ml Output Urine Total 1 ml 600 ml Drainage Total 50 ml Estimated Blood Loss 1000 ml Laboratory Tests 10/03/16 15:45: White Blood Count 12.9#H, Red Blood Count 3.33L, Hemoglobin 10.7L, Hematocrit 30.5L, Mean Corpuscular Volume 92, Mean Corpuscular Hemoglobin 32.0H, Mean Corpuscular Hemoglobin Concent 35.0, Red Cell Distribution Width 12.4, Platelet Count 164, Mean Platelet Volume 6.7, Neutrophils (%) (Auto) 87.3H, Lymphocytes ( %) (Auto) 8.0L, Monocytes (%) (Auto) 3.8, Eosinophils (%) (Auto) 0.4, Basophils (%) (Auto) 0.1 10/04/16 07:10: White Blood Count 9.9, Red Blood Count 3.40L, Hemoglobin 11.1L, Hematocrit 30.7L , Mean Corpuscular Volume 90, Mean Corpuscular Hemoglobin 32.5H, Mean Corpuscular Hemoglobin Concent 36.0, Red Cell Distribution Width 12.4, Platelet Count 189, Mean Platelet Volume 7.8, Neutrophils (%) (Auto) 75.0, Lymphocytes (% ) (Auto) 15.7L, Monocytes (%) (Auto) 8.1, Eosinophils (%) (Auto) 0.8, Basophils (%) (Auto) 0.5, Sodium Level 137, Potassium Level 3.5, Chloride Level 103, Carbon Dioxide Level 21, Anion Gap 13, Blood Urea Nitrogen 6L, Creatinine 0.7, Estimat Glomerular Filtration Rate , Glucose Level 194H, Calcium Level 8.1L, Phosphorus Level 1.9L, Magnesium Level 1.1L, Total Bilirubin 0.8, Aspartate Amino Transf (AST/SGOT) 40, Alanine Aminotransferase (ALT/SGPT) 51H, Alkaline Phosphatase 279H, Total Protein 5.4L, Albumin 3.1L, Globulin 2.3, Albumin/ Globulin Ratio 1.3 Height (Feet): 5 Height (Inches): 7.00 Weight (Pounds): 152 General Appearance: WD/WN EENT: PERRL/EOMI Neck: supple Cardiovascular: bradycardia Respiratory/Chest: lungs clear Abdomen: soft, distended, guarding, other - post op anticipated level of symptoms Extremities: non-tender Neurologic: sailing master II-XII grossly normal, oriented x 3 Charles Wood MD Oct 04, 2016 10:10
--- NOTE | 2016-10-04 10:41 | GI Progress Note ---
Assessment/Plan Problems: (1) Epigastric abdominal pain ICD Codes: R10.13 - Epigastric pain SNOMED: 33495386 (2) Choledocholithiasis ICD Codes: K80.50 - Calculus of bile duct without cholangitis or cholecystitis without obstruction SNOMED: 337991261 (3) LFTs abnormal ICD Codes: R79.89 - Other specified abnormal findings of blood chemistry SNOMED: 140122493 (4) Common bile duct (CBD) obstruction ICD Codes: K83.1 - Obstruction of bile duct SNOMED: 02256013, 42516121 (5) Abdominal pain ICD Codes: R10.9 - Unspecified abdominal pain SNOMED: 90332387 Qualifiers: Qualified Codes: R10.11 - Right upper quadrant pain Status: progressing Status Narrative Discussed with Dr. Jarvis. Assessment/Plan Date of Service: 09/29/16 SURGEON: Wellington Jarvis M.D. INDICATION: Choledocholithiasis. SUMMARY FINDINGS: Status post endoscopic retrograde cholangiopancreatography sphincterotomy and stone removal. RECOMMENDATIONS: s/p open chalo pain mgmt fu biopsies repeat LFTs ppi fu labs Subjective Gastrointestinal/Abdominal: Reports: abdominal pain Objective Last 24 Hour Vital Signs Date Time Temp Pulse Resp B/P Pulse Ox O2 Delivery O2 Flow Rate FiO2 10/04/16 09:59 97.0 10/04/16 08:17 97.0 70 20 161/78 99 Nasal Cannula 4.0 10/04/16 06:08 98.4 10/04/16 04:00 52 10/04/16 04:00 97.5 60 20 153/77 100 Nasal Cannula 2.0 10/04/16 00:00 97.8 63 20 118/81 100 Nasal Cannula 2.0 10/03/16 22:00 58 10/03/16 20:00 97.3 64 18 150/75 Nasal Cannula 2.0 98 10/03/16 16:15 98.3 63 20 145/63 97 Nasal Cannula 3.0 10/03/16 16:09 56 20 135/64 97 Nasal Cannula 3.0 10/03/16 16:01 97.7 10/03/16 16:01 97.7 10/03/16 16:00 57 20 137/59 96 Nasal Cannula 3.0 10/03/16 15:48 62 20 151/65 96 Simple Mask 8.0 10/03/16 15:34 57 20 158/65 96 Simple Mask 8.0 10/03/16 15:29 62 20 161/63 96 Simple Mask 8.0 10/03/16 15:25 67 16 96 10/03/16 15:24 97.7 67 20 155/79 96 Simple Mask 8.0 Intake and Output 10/03/16 10/04/16 19:00 07:00 Intake Total 2362.5 ml 1637.5 ml Output Total 1001 ml 650 ml Balance 1361.5 ml 987.5 ml IV Total 1362.5 ml 1637.5 ml Other 1000 ml Output Urine Total 1 ml 600 ml Drainage Total 50 ml Estimated Blood Loss 1000 ml Laboratory Tests Test 10/03/16 15:45 10/04/16 07:10 White Blood Count 12.9 K/UL (4.8-10.8) #H 9.9 K/UL (4.8-10.8) Red Blood Count 3.33 M/UL (4.70-6.10) L 3.40 M/UL (4.70-6.10) L Hemoglobin 10.7 G/DL (14.2-18.0) L 11.1 G/DL (14.2-18.0) L Hematocrit 30.5 % (42.0-52.0) L 30.7 % (42.0-52.0) L Mean Corpuscular Volume 92 FL (80-99) 90 FL (80-99) Mean Corpuscular Hemoglobin 32.0 PG (27.0-31.0) H 32.5 PG (27.0-31.0) H Mean Corpuscular Hemoglobin Concent 35.0 G/DL (32.0-36.0) 36.0 G/DL (32.0-36.0) Red Cell Distribution Width 12.4 % (11.6-14.8) 12.4 % (11.6-14.8) Platelet Count 164 K/UL (150-450) 189 K/UL (150-450) Mean Platelet Volume 6.7 FL (6.5-10.1) 7.8 FL (6.5-10.1) Neutrophils (%) (Auto) 87.3 % (45.0-75.0) H 75.0 % (45.0-75.0) Lymphocytes (%) (Auto) 8.0 % (20.0-45.0) L 15.7 % (20.0-45.0) L Monocytes (%) (Auto) 3.8 % (1.0-10.0) 8.1 % (1.0-10.0) Eosinophils (%) (Auto) 0.4 % (0.0-3.0) 0.8 % (0.0-3.0) Basophils (%) (Auto) 0.1 % (0.0-2.0) 0.5 % (0.0-2.0) Sodium Level 137 mEQ/L (135-145) Potassium Level 3.5 mEQ/L (3.4-4.9) Chloride Level 103 mEQ/L (98-107) Carbon Dioxide Level 21 mEQ/L (20-30) Anion Gap 13 (5-15) Blood Urea Nitrogen 6 mg/dL (7-23) L Creatinine 0.7 mg/dL (0.7-1.2) Estimat Glomerular Filtration Rate mL/min (>60) Glucose Level 194 mg/dL (74-106) H Calcium Level 8.1 mg/dL (8.6-10.2) L Phosphorus Level 1.9 mg/dL (2.5-4.8) L Magnesium Level 1.1 mg/dL (1.7-2.5) L Total Bilirubin 0.8 mg/dL (0.0-1.2) Aspartate Amino Transf (AST/SGOT) 40 U/L (5-40) Alanine Aminotransferase (ALT/SGPT) 51 U/L (3-41) H Alkaline Phosphatase 279 U/L (40-129) H Total Protein 5.4 g/dL (6.6-8.7) L Albumin 3.1 g/dL (3.5-5.2) L Globulin 2.3 g/dL Albumin/Globulin Ratio 1.3 (1.0-2.7) Height (Feet): 5 Height (Inches): 7.00 Weight (Pounds): 152 General Appearance: no apparent distress, alert Cardiovascular: normal rate Respiratory/Chest: normal breath sounds Abdominal Exam: incision site - s/p open chalo Objective Pre-op Diagnosis: acute cholecystitis, choledocholithiasis Procedure: laparoscopic converted to open cholecystectomy Sweta Diaz N.P. Oct 04, 2016 10:41
--- NOTE | 2016-10-04 10:53 | Infectious Diseases Prog Note ---
Assessment/Plan Assessment/Plan A: The patient is a 75-year-old male with cholangitis vs cholecystitis SP laparoscopic conversion to open cholecystectomy 10/02 SP Status post endoscopic retrograde cholangiopancreatography sphincterotomy and stone removal Fever , improved Bcx: GPC leukocytosis CAD Hyperlipidemia Diabetes, Hypertension hx of myocardial infarction ex-smoker PLAN: cont patient on IV Zosyn d# 5 / 7 DC Zyvox s# 3 Monitor CBC. Monitor BMP. Monitor blood culture. We will follow GI and surgical recommendations Subjective Constitutional: Denies: anorexia, chills, drenching sweats, fatigue, fever, no symptoms, other Allergies: Coded Allergies: No Known Allergies (Unverified , 09/29/16) Objective Vital Signs Last 24 Hour Vital Signs Date Time Temp Pulse Resp B/P Pulse Ox O2 Delivery O2 Flow Rate FiO2 10/04/16 09:59 97.0 10/04/16 08:17 97.0 70 20 161/78 99 Nasal Cannula 4.0 10/04/16 06:08 98.4 10/04/16 04:00 52 10/04/16 04:00 97.5 60 20 153/77 100 Nasal Cannula 2.0 10/04/16 00:00 97.8 63 20 118/81 100 Nasal Cannula 2.0 10/03/16 22:00 58 10/03/16 20:00 97.3 64 18 150/75 Nasal Cannula 2.0 98 10/03/16 16:15 98.3 63 20 145/63 97 Nasal Cannula 3.0 10/03/16 16:09 56 20 135/64 97 Nasal Cannula 3.0 10/03/16 16:01 97.7 10/03/16 16:01 97.7 10/03/16 16:00 57 20 137/59 96 Nasal Cannula 3.0 10/03/16 15:48 62 20 151/65 96 Simple Mask 8.0 10/03/16 15:34 57 20 158/65 96 Simple Mask 8.0 10/03/16 15:29 62 20 161/63 96 Simple Mask 8.0 10/03/16 15:25 67 16 96 10/03/16 15:24 97.7 67 20 155/79 96 Simple Mask 8.0 Height (Feet): 5 Height (Inches): 7.00 Weight (Pounds): 152 HEENT: atraumatic Respiratory/Chest: lungs clear Cardiovascular: normal rate Abdomen: no organomegaly Laboratory Tests Test 10/03/16 15:45 10/04/16 07:10 White Blood Count 12.9 K/UL (4.8-10.8) #H 9.9 K/UL (4.8-10.8) Red Blood Count 3.33 M/UL (4.70-6.10) L 3.40 M/UL (4.70-6.10) L Hemoglobin 10.7 G/DL (14.2-18.0) L 11.1 G/DL (14.2-18.0) L Hematocrit 30.5 % (42.0-52.0) L 30.7 % (42.0-52.0) L Mean Corpuscular Volume 92 FL (80-99) 90 FL (80-99) Mean Corpuscular Hemoglobin 32.0 PG (27.0-31.0) H 32.5 PG (27.0-31.0) H Mean Corpuscular Hemoglobin Concent 35.0 G/DL (32.0-36.0) 36.0 G/DL (32.0-36.0) Red Cell Distribution Width 12.4 % (11.6-14.8) 12.4 % (11.6-14.8) Platelet Count 164 K/UL (150-450) 189 K/UL (150-450) Mean Platelet Volume 6.7 FL (6.5-10.1) 7.8 FL (6.5-10.1) Neutrophils (%) (Auto) 87.3 % (45.0-75.0) H 75.0 % (45.0-75.0) Lymphocytes (%) (Auto) 8.0 % (20.0-45.0) L 15.7 % (20.0-45.0) L Monocytes (%) (Auto) 3.8 % (1.0-10.0) 8.1 % (1.0-10.0) Eosinophils (%) (Auto) 0.4 % (0.0-3.0) 0.8 % (0.0-3.0) Basophils (%) (Auto) 0.1 % (0.0-2.0) 0.5 % (0.0-2.0) Sodium Level 137 mEQ/L (135-145) Potassium Level 3.5 mEQ/L (3.4-4.9) Chloride Level 103 mEQ/L (98-107) Carbon Dioxide Level 21 mEQ/L (20-30) Anion Gap 13 (5-15) Blood Urea Nitrogen 6 mg/dL (7-23) L Creatinine 0.7 mg/dL (0.7-1.2) Estimat Glomerular Filtration Rate mL/min (>60) Glucose Level 194 mg/dL (74-106) H Calcium Level 8.1 mg/dL (8.6-10.2) L Phosphorus Level 1.9 mg/dL (2.5-4.8) L Magnesium Level 1.1 mg/dL (1.7-2.5) L Total Bilirubin 0.8 mg/dL (0.0-1.2) Aspartate Amino Transf (AST/SGOT) 40 U/L (5-40) Alanine Aminotransferase (ALT/SGPT) 51 U/L (3-41) H Alkaline Phosphatase 279 U/L (40-129) H Total Protein 5.4 g/dL (6.6-8.7) L Albumin 3.1 g/dL (3.5-5.2) L Globulin 2.3 g/dL Albumin/Globulin Ratio 1.3 (1.0-2.7) Current Medications Medications (Trade) Dose Ordered Sig/Madina Route PRN Reason Start Time Stop Time Status Last Admin Dose Admin Acetaminophen (Tylenol) 500 mg EVERY 6 HOURS PRN ORAL Mild Pain/Temp > 100.5 09/29/16 13:15 10/29/16 13:14 10/02/16 22:05 Aspirin 81 mg 81 mg DAILY ORAL 09/30/16 09:00 10/30/16 08:59 10/02/16 09:09 Dextrose (Dextrose 50%) STAT PRN IV Hypoglycemia 09/29/16 13:15 10/29/16 13:14 Dextrose/ Electrolytes (D5 0.45%NS W/ KCl 20mEq) 1,000 ml @ 125 mls/hr Q8H IV 10/03/16 16:30 11/02/16 16:29 10/04/16 09:27 Famotidine (Pepcid I.v.) 20 mg Q12HR IVP 09/29/16 21:00 10/29/16 20:59 10/04/16 09:27 Heparin Sodium (Porcine) (Heparin 5000 units/ml) 5,000 units EVERY 12 HOURS SUBQ 09/29/16 21:00 10/29/16 20:59 10/03/16 21:32 Hydromorphone HCl (Dilaudid) 0.5 mg Q3H PRN IVP Pain Score 1-3 10/03/16 15:30 10/10/16 15:29 Hydromorphone HCl (Dilaudid) 1 mg Q3H PRN IVP pain score 4-6 10/03/16 15:30 10/10/16 15:29 10/04/16 09:29 Insulin Aspart (NovoLOG) BEFORE MEALS AND HS SUBQ 09/29/16 16:30 10/29/16 16:29 10/04/16 06:10 Linezolid 300 ml @ 300 mls/hr Q12HR IVPB 10/02/16 21:00 10/09/16 20:59 10/04/16 09:27 Magnesium Sulfate 100 ml @ 100 mls/hr Q1H IVPB 10/04/16 11:00 10/04/16 14:59 Morphine Sulfate (Morphine Sulfate) 2 mg Q8HR PRN IVP Severe Pain (Pain Scale 7-10) 09/29/16 13:15 10/06/16 13:14 10/04/16 05:18 Ondansetron HCl 4 mg 4 mg Q6H PRN IVP Nausea & Vomiting 10/03/16 15:30 11/02/16 15:29 Pantoprazole (Protonix) 40 mg DAILY ORAL 09/30/16 09:00 10/30/16 08:59 10/04/16 10:00 Piperacillin Sod/ Tazobactam Sod/ Dextrose (Zosyn/D5W) 110 ml @ 27.5 mls/hr Q8H IVPB 09/29/16 18:00 10/06/16 17:59 10/04/16 01:50 Pravastatin Sodium (Pravachol) 20 mg BEDTIME ORAL 09/29/16 21:00 10/29/16 20:59 10/03/16 21:35 Sodium Chloride 1,000 ml @ 100 mls/hr Q10H IV 10/01/16 18:00 10/31/16 17:59 10/04/16 05:32 Sodium Phosphate/ Sodium Chloride (NaPO4/Sodium Chloride) 285 ml @ 47.5 mls/hr ONCE ONCE IVPB 10/04/16 15:00 10/04/16 20:59 ROSLYN KEN M.D. Oct 04, 2016 10:53
[2016-10-04 11:58] VITALS: BP 145/76
[2016-10-04] MEDS ORDERED: Sodium Phosphate 30 MM in NS 275 ML IVPB ONE ×2 (12:30→15:00)
[2016-10-04 16:00] VITALS: BP 128/94
--- NOTE | 2016-10-04 17:43 | 48 Hour Post Anesthesia Eval ---
Post Anesthesia Evaluation Procedure: Laparoscopic Cholecystectomy Date of Evaluation: Oct 04, 2016 Time of Evaluation: 07:10 Blood Pressure Systolic: 128 0: 94 Pulse Rate: 72 Respiratory Rate: 18 Temperature (Fahrenheit): 97.2 O2 Sat by Pulse Oximetry: 94 Airway: patent Nausea: No Vomiting: No Pain Intensity: 1 Hydration Status: adequate Cardiopulmonary Status: at baseline Mental Status/LOC: patient returned to baseline Post-Anesthesia Complications: 0 Follow-up care needed: N/A - further care as per primary team MINISTERIO MAYORGA M.D. Oct 04, 2016 17:43
--- NOTE | 2016-10-04 18:28 | Consultation ---
DATE OF CONSULTATION: 10/04/2016 CONSULTING PHYSICIAN: Víctor Muir M.D. REFERRING PHYSICIAN: Charles Wood M.D. REASON FOR CONSULTATION: For evaluation of difficult catheterization. HISTORY OF PRESENT ILLNESS: The patient is a pleasant 75-year-old male. He was originally admitted to the hospital because of abdominal pain. He was noted to have acute cholecystitis. He is status post laparoscopic converted to open cholecystectomy, which was done yesterday. He has a history of difficult catheterization. He has had difficulty voiding. Urology evaluation is requested. I did talk to the patient and the family and there is some previous history of prostate surgery, the exact details are unknown. PAST MEDICAL HISTORY: Significant for above. Also, hyperlipidemia, diabetes, coronary artery disease, and OR. PAST SURGICAL HISTORY: As above. Other surgeries are unknown. MEDICATIONS: Current medications during the hospital, the patient is on Dilaudid, Zofran, Protonix, aspirin, heparin, Zosyn, insulin, and morphine. ALLERGIES: No known drug allergies. SOCIAL HISTORY: Nonsmoker. FAMILY HISTORY: Noncontributory. PHYSICAL EXAMINATION: GENERAL: The patient is an elderly male, no acute distress. VITAL SIGNS: Temperature is 97 degrees, blood pressure is 145/76, pulse 67, and respirations 20. HEENT: Normocephalic. NECK: Supple. ABDOMEN: Slightly distended. There is a bandage over his wound. There is suprapubic fullness. GENITOURINARY: Normal phallus. RECTAL: Reveals a firm prostate over 60 grams. EXTREMITIES: No clubbing or cyanosis. LABORATORY AND DIAGNOSTIC DATA: His urinalysis showed 2-4 RBCs, 5-10 WBCs, and 3+ protein. White count is 9.9, hemoglobin 11.1, and platelets are 189,000. BUN is 6, creatinine 0.7, and potassium is 3.5. Diagnostic imaging studies, the patient had a CT scan of the abdomen pelvis, there was mention of a small right renal cyst. There was no hydronephrosis. There was also a small cyst in the left kidney. There was also mention of a small left adrenal nodule about 1.1 centimeters. The prostate gland was enlarged. Procedure, at the bedside I asked the nursing staff to do a bladder scan, which showed residual 450 mL. I then attempted to place a Rosas catheter. 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 I then used sounds to dilate the stricture and I was able to pass an 18-Icelandic Rosas catheter and there was return of about 500 to 600 mL of meagan urine. The catheter was left to gravity drainage. IMPRESSION: 1. Urinary retention. 2. Benign prostatic hypertrophy. 3. Probable neurogenic bladder. 4. Hematuria. 5. Pyuria. 6. Proteinuria. 7. Renal cyst. 8. Adrenal adenoma. 9. Urethral stricture. PLAN AND DISCUSSION: Again as noted above, the stricture was dilated and Rosas catheter has been placed. I would recommend to keep the catheter indwelling. I will start the patient on tamsulosin 0.4 mg daily as well as finasteride 5 mg daily and he can have a voiding trial in the future. At some point, he will need to have cystoscopy to evaluate his lower urinary tract. I will follow the patient and any other recommendation will be forthcoming. Thank you, Dr. Wood, for asking me to participate in this consultation. Víctor Muir M.D. DR: MAXWELL JOB#: [id number] CC: Sekou De Santiago M.D. Ricardo Navas, M.D.Arash Alborzi, M.D
[2016-10-04 20:00] VITALS: BP 173/92
[2016-10-04] MEDS: Tamsulosin 0.4mg cap ORAL SCH (20:44)
[2016-10-05 00:10] VITALS: BP 162/98
--- NOTE | 2016-10-05 01:27 | Operative Note - Dictated ---
DATE OF OPERATION: 10/03/2016 PREOPERATIVE DIAGNOSES: 1. Acute cholecystitis. 2. Choledocholithiasis. POSTOPERATIVE DIAGNOSES: 1. Acute cholecystitis. 2. Choledocholithiasis. OPERATION PERFORMED: Laparoscopic converted to open cholecystectomy. ATTENDING SURGEON: Pedrito Millan M.D. REGISTERED NURSE OBSTETRICS SURGEON: Isaías Mosher M.D. ANESTHESIOLOGIST: Horace Briggs M.D. ANESTHESIA: General CASE AIDE. ESTIMATED BLOOD LOSS: 1000 mL. IV FLUIDS: Please see anesthesia records. SPECIMENS: Gallbladder sent to pathology for review. COMPLICATIONS: None. CONDITION: Stable. Drains: ALEKSEY in RU quadrant. ANTIBIOTICS: The patient was on scheduled antibiotics prior to entering the operating room. WOUND CLASSIFICATION: Class III. INDICATIONS FOR PROCEDURE: This is a 75-year-old male, who presented to the emergency department at [facility] complaining of acute worsening right upper quadrant abdominal pain with associated nausea and emesis. After appropriate workup was completed, the patient was noted to have acute cholecystitis with choledocholithiasis. The patient was admitted for treatment. During hospitalization, the patient had an ERCP, which was successful in clearing the biliary tract of stones. Once this was complete, cholecystectomy was indicated. The risks, benefits and alternatives to surgery were discussed with the patient in detail. I explained to the patient and his family that given the chronicity of his disease that there is potential for conversion to open procedure. I explained to the patient and family that there is a risk for infection and bleeding and injury to the surrounding organs. Furthermore, given this procedure in specific, I explained to them the risk of potential biliary tract or liver anatomy injury. After discussing all of these in detail with the patient and family, decision was made to proceed with surgical intervention. Conest was obtained and placed within the chart. OPERATIVE NOTE: The patient was taken to the operating room and placed on operating table in supine position with bilateral arms out. All bony prominences were padded with gel pads. Given the patient voided just prior to entering the operating room, no Rosas catheter was placed. The patient was on scheduled antibiotics upon entering the operating room for treatment of his acute cholecystitis during the hospital stay. Appropriate time-out was then taken to identify the patient, procedure, operating staff, and surgical staff. SCDs were placed. General anesthesia was induced and the patient was intubated. The abdomen was then prepped and draped in standard surgical fashion. We began by making an umbilical incision using a fresh #11 blade. Incision was carried down to the fascia and the fascia was elevated and incised. Entery into the abdominal cavity was under direct visualization without complication. A Mey trocar was then inserted under direct visualization. The abdomen was then insufflated to 12-15 mmHg. The patient tolerated the insufflation well. The laparoscope was then inserted and the abdomen was inspected. No injuries from initial trocar placement was noted. No other abnormalities were noted within the abdomen upon initial inspection. A 12 mm trocar was then placed in the epigastric region under direct visualization. Two 5 mm accessory ports were then placed in the right subcostal region under direct visualization as well. No complications from secondary trocar placements were noted. At this time, the patient was placed in the reverse Trendelenburg position with left side down. There were dense omental adhesions to the dome and body of the gallbladder. These were taken down bluntly to avoid potential injury to surrounding structures. These adhesions were well vascularized and a mild amount of bleeding was noted upon dissecting the omentum off the gallbladder safely. The dome of the gallbladder was then grasped using lateral port and retracted over the liver. The infundibulum of the gallbladder was then grasped and retracted towards the appendix to attempt to visualize the cystic duct and the cystic artery ( critical view). The perineal attachments from the infundibulum were slowly dissected down. These attachments were noted to be fairly dense and thickened and fairly oozy with a fair amount of bleeding during dissection. It was not felt safe to use electrocautery in this area given lack of proper visualization of structures. Given the underlying structures and significant scarring, this did not allow for good visualization of the surrounding structures. Upon dissecting the medial aspect of the gallbladder up high taking down the peritoneum, the cystic artery was lacerated with blunt dissection. At this time, inability to appropriately visualize the critical view and the bleeding from the cystic artery up high on the infundibulum of the gallbladder, decision was made just to convert to open. There was a fair amount of dense adhesions around the cystic duct and the hilum and therefore decision was made that it is unsafe to proceed with laparoscopic procedure. At this time, the abdomen was allowed to desufflate and using a fresh #10 blade, the incision between the right costal region and left epigastric region were connected. The electrocautery was used to divide the subcutaneous tissue following by the anterior rectus sheath to rectus muscle and the posterior rectus sheath. Entery into the abdomen was obtained without complication. A [place] retractor was inserted and the abdomen was irrigated and fluid evacuated. At this time, the gallbladder was grasped with a grasper and the bowel was retracted downwards. The gallbladder was taken down off the gallbladder bed with electrocautery from the top down technique. In doing so, the cystic duct and cystic artery were identified. The cystic artery was ligated with a 3-0 silk tie and cystic duct was doubly clipped. The gallbladder was then removed and sent to pathology for review. Upon further inspection of the abdomen, the area of the omentum had been taken down prior off the gallbladder, had some mild oozing, which was ligated using 3-0 silk ties. Once appropriate hemostasis was obtained from the omentum bleeding as well as the gallbladder bed, we began to irrigate the abdomen. No further bleeding was noted and appropriate hemostasis was achieved. Two pieces of Surgicel were left in the gallbladder bed. A decision was made to place a ALEKSEY drain in the right upper quadrant. A 19 Peruvian round Darrick drain was inserted through the most lateral right upper quadrant subcostal port and drain was placed in the right upper quadrant. Drain was sutured to the skin using a 3-0 nylon suture. At this time, appropriate hemostasis was noted. No leakage of bowel or abnormalities identified. All the remaining fluid and abdomen was suctioned and we began our closure. The incision was closed in a two-layer fashion beginning with the posterior rectus sheath using a #1 PDS suture followed by closure of the anterior rectus sheath using a #1 PDS suture. The wound was then irrigated and skin paper was used to close the right costal incision. The prior umbilical Mey trocar site fascia was then closed using a 3-0 Vicryl suture in a [id number] fashion. The skin was staple closed. The patient tolerated the procedure well, was awakened, and taken to postanesthesia care unit in stable condition. Pedrito Millan M.D. DR: ANGIE JOB#: [id number] CC: SANJAY
[2016-10-05] MEDS: HYDROmorphone 1mg/ml Carpuject IVP PRN ×2 (01:49→17:40)
[2016-10-05] MEDS: Piperacillin/Tazobactam 3.375 GM in D5W 110 ML IVPB SCH ×3 (01:49→17:39)
[2016-10-05] MEDS: D5 1/2NS w/KCl 20mEq 1,000 ML IV SCH ×3 (01:49→17:39)
[2016-10-05 04:20] VITALS: BP 127/47
[2016-10-05] MEDS: Morphine Sulfate 2mg/ml Inj IVP PRN (05:10)
[2016-10-05] MEDS: NovoLOG Insulin Flexpen SUBQ SCH ×4 (07:28→21:58)
[2016-10-05] MEDS: Hydromorphone 0.5mg/0.5ml inj IVP PRN ×2 (07:58→12:53)
[2016-10-05 07:59] LABS: BASOPHILS % (AUTO) 0.6 % (0.0-2.0); EOSINOPHILS % (AUTO) 0.1 % (0.0-3.0); LYMPHOCYTES % (AUTO) 10.4 % (20.0-45.0); MEAN CORPUSCULAR HEMOGLOBIN 30.6 PG (27.0-31.0); MEAN CORPUSCULAR HGB CONC 34.4 G/DL (32.0-36.0); MEAN CORPUSCULAR VOLUME 89 FL (80-99); MEAN PLATELET VOLUME 7.3 FL (6.5-10.1); MONOCYTES % (AUTO) 7.9 % (1.0-10.0); NEUTROPHILS % (AUTO) 81.1 % (45.0-75.0); PLATELET COUNT 244 K/UL (150-450); RED BLOOD COUNT 3.61 M/UL (4.70-6.10); RED CELL DISTRIBUTION WIDTH 12.3 % (11.6-14.8); WHITE BLOOD COUNT 12.3 K/UL (4.8-10.8)
[2016-10-05 08:25] LABS: MAGNESIUM 1.5 mg/dL (1.7-2.5); PHOSPHORUS 2.4 mg/dL (2.5-4.8)
[2016-10-05 08:27] LABS: ALANINE AMINOTRANSFERASE 43 U/L (3-41); ALBUMIN/GLOBULIN RATIO 1.1 (1.0-2.7); ANION GAP 18 (5-15); ASPARTATE AMINO TRANSFERASE 23 U/L (5-40); CALCIUM 8.4 mg/dL (8.6-10.2); CARBON DIOXIDE 22 mEQ/L (20-30); CHLORIDE 95 mEQ/L (98-107); CREATININE 0.7 mg/dL (0.7-1.2); HEMOLYSIS 3; POTASSIUM 3.4 mEQ/L (3.4-4.9); SODIUM 135 mEQ/L (135-145); TOTAL PROTEIN 6.1 g/dL (6.6-8.7)
[2016-10-05 08:32] VITALS: BP 162/82
[2016-10-05] MEDS: Heparin 5000 units/ml inj SUBQ SCH ×2 (08:47→21:56)
[2016-10-05] MEDS: Aspirin Baby 81mg ORAL SCH (08:47)
[2016-10-05] MEDS: Famotidine 20 MG/ 2ML VIAL IVP SCH (08:47)
--- NOTE | 2016-10-05 09:00 | Infectious Diseases Prog Note ---
Assessment/Plan Assessment/Plan A: The patient is a 75-year-old male with cholangitis vs cholecystitis, SP laparoscopic conversion to open cholecystectomy 10/02 SP Status post endoscopic retrograde cholangiopancreatography sphincterotomy and stone removal Fever , SP Bcx: Alpha-Strp leukocytosis mild Alk improving Ur Obst , SP Rosas CAD Hyperlipidemia Diabetes, Hypertension hx of myocardial infarction ex-smoker PLAN: cont patient on IV Zosyn d# 6 / 7 ( 10/04 SP Zyvox s# 3 ) Monitor CBC. Monitor BMP. We will follow GI and surgical recommendations Subjective Constitutional: Denies: anorexia, chills, drenching sweats, fatigue, fever, no symptoms, other Allergies: Coded Allergies: No Known Allergies (Unverified , 09/29/16) Objective Vital Signs Last 24 Hour Vital Signs Date Time Temp Pulse Resp B/P Pulse Ox O2 Delivery O2 Flow Rate FiO2 10/05/16 08:48 96 162/82 10/05/16 08:32 97.0 96 20 162/82 99 Nasal Cannula 3.0 10/05/16 05:40 97.0 10/05/16 04:20 97.5 46 18 127/47 Room Air 10/05/16 04:00 97 10/05/16 02:19 97.0 10/05/16 00:10 97.0 92 18 162/98 98 Room Air 10/05/16 00:00 95 10/04/16 20:44 72 175/92 10/04/16 20:00 97.2 77 18 173/92 Nasal Cannula 2.0 97 10/04/16 20:00 84 10/04/16 17:43 72 18 94 10/04/16 16:00 75 10/04/16 16:00 97.2 72 18 128/94 94 Room Air 10/04/16 12:11 72 10/04/16 11:58 97.0 67 20 145/76 100 Nasal Cannula 4.0 Height (Feet): 5 Height (Inches): 7.00 Weight (Pounds): 152 HEENT: anicteric Respiratory/Chest: normal breath sounds Cardiovascular: normal rate Abdomen: no organomegaly Laboratory Tests Test 10/05/16 07:35 White Blood Count 12.3 K/UL (4.8-10.8) H Red Blood Count 3.61 M/UL (4.70-6.10) L Hemoglobin 11.1 G/DL (14.2-18.0) L Hematocrit 32.2 % (42.0-52.0) L Mean Corpuscular Volume 89 FL (80-99) Mean Corpuscular Hemoglobin 30.6 PG (27.0-31.0) Mean Corpuscular Hemoglobin Concent 34.4 G/DL (32.0-36.0) Red Cell Distribution Width 12.3 % (11.6-14.8) Platelet Count 244 K/UL (150-450) Mean Platelet Volume 7.3 FL (6.5-10.1) Neutrophils (%) (Auto) 81.1 % (45.0-75.0) H Lymphocytes (%) (Auto) 10.4 % (20.0-45.0) L Monocytes (%) (Auto) 7.9 % (1.0-10.0) Eosinophils (%) (Auto) 0.1 % (0.0-3.0) Basophils (%) (Auto) 0.6 % (0.0-2.0) Sodium Level 135 mEQ/L (135-145) Potassium Level 3.4 mEQ/L (3.4-4.9) Chloride Level 95 mEQ/L (98-107) L Carbon Dioxide Level 22 mEQ/L (20-30) Anion Gap 18 (5-15) H Blood Urea Nitrogen 3 mg/dL (7-23) L Creatinine 0.7 mg/dL (0.7-1.2) Estimat Glomerular Filtration Rate mL/min (>60) Glucose Level 231 mg/dL (74-106) H Calcium Level 8.4 mg/dL (8.6-10.2) L Phosphorus Level 2.4 mg/dL (2.5-4.8) L Magnesium Level 1.5 mg/dL (1.7-2.5) L Total Bilirubin 1.0 mg/dL (0.0-1.2) Aspartate Amino Transf (AST/SGOT) 23 U/L (5-40) Alanine Aminotransferase (ALT/SGPT) 43 U/L (3-41) H Alkaline Phosphatase 240 U/L (40-129) H Total Protein 6.1 g/dL (6.6-8.7) L Albumin 3.3 g/dL (3.5-5.2) L Globulin 2.8 g/dL Albumin/Globulin Ratio 1.1 (1.0-2.7) Current Medications Medications (Trade) Dose Ordered Sig/Madina Route PRN Reason Start Time Stop Time Status Last Admin Dose Admin Acetaminophen (Tylenol) 500 mg EVERY 6 HOURS PRN ORAL Mild Pain/Temp > 100.5 09/29/16 13:15 10/29/16 13:14 10/02/16 22:05 Amlodipine Besylate (Norvasc) 5 mg DAILY ORAL 10/04/16 21:00 11/03/16 20:59 10/05/16 08:48 Aspirin 81 mg 81 mg DAILY ORAL 09/30/16 09:00 10/30/16 08:59 10/05/16 08:47 Clonidine HCl (Catapres) 0.1 mg Q6H PRN ORAL For High Blood Pressure 10/04/16 20:15 11/03/16 20:14 Dextrose (Dextrose 50%) STAT PRN IV Hypoglycemia 09/29/16 13:15 10/29/16 13:14 Dextrose/ Electrolytes (D5 0.45%NS W/ KCl 20mEq) 1,000 ml @ 125 mls/hr Q8H IV 10/03/16 16:30 11/02/16 16:29 10/05/16 08:47 Famotidine (Pepcid I.v.) 20 mg Q12HR IVP 09/29/16 21:00 10/29/16 20:59 10/05/16 08:47 Finasteride (Proscar) 5 mg DAILY ORAL 10/04/16 13:00 11/03/16 12:59 10/05/16 08:48 Heparin Sodium (Porcine) (Heparin 5000 units/ml) 5,000 units EVERY 12 HOURS SUBQ 09/29/16 21:00 10/29/16 20:59 10/05/16 08:47 Hydromorphone HCl (Dilaudid) 0.5 mg Q3H PRN IVP Pain Score 1-3 10/03/16 15:30 10/10/16 15:29 10/05/16 07:58 Hydromorphone HCl (Dilaudid) 1 mg Q3H PRN IVP pain score 4-6 10/03/16 15:30 10/10/16 15:29 2/2/17 01:49 Insulin Aspart (NovoLOG) BEFORE MEALS AND HS SUBQ 09/29/16 16:30 10/29/16 16:29 10/05/16 07:28 Morphine Sulfate (Morphine Sulfate) 2 mg Q8HR PRN IVP Severe Pain (Pain Scale 7-10) 09/29/16 13:15 10/06/16 13:14 10/05/16 05:10 Ondansetron HCl (Zofran) 4 mg Q6H PRN IVP Nausea & Vomiting 10/03/16 15:30 11/02/16 15:29 Pantoprazole (Protonix) 40 mg DAILY ORAL 09/30/16 09:00 10/30/16 08:59 10/05/16 08:48 Piperacillin Sod/ Tazobactam Sod/ Dextrose (Zosyn/D5W) 110 ml @ 27.5 mls/hr Q8H IVPB 09/29/16 18:00 10/06/16 17:59 10/05/16 01:49 Pravastatin Sodium (Pravachol) 20 mg BEDTIME ORAL 09/29/16 21:00 10/29/16 20:59 10/04/16 20:44 Sodium Chloride 1,000 ml @ 100 mls/hr Q10H IV 10/01/16 18:00 10/31/16 17:59 10/04/16 05:32 Tamsulosin HCl (Flomax) 0.4 mg BEDTIME ORAL 10/04/16 21:00 11/03/16 20:59 10/04/16 20:44 ROSLYN KEN M.D. Oct 05, 2016 09:00
--- NOTE | 2016-10-05 10:42 | GI Progress Note ---
Assessment/Plan Problems: (1) Epigastric abdominal pain ICD Codes: R10.13 - Epigastric pain SNOMED: 60620383 (2) Choledocholithiasis ICD Codes: K80.50 - Calculus of bile duct without cholangitis or cholecystitis without obstruction SNOMED: 830850302 (3) LFTs abnormal ICD Codes: R79.89 - Other specified abnormal findings of blood chemistry SNOMED: 628850336 (4) Common bile duct (CBD) obstruction ICD Codes: K83.1 - Obstruction of bile duct SNOMED: 44704116, 01996056 (5) Abdominal pain ICD Codes: R10.9 - Unspecified abdominal pain SNOMED: 09416990 Qualifiers: Qualified Codes: R10.11 - Right upper quadrant pain Status: progressing Status Narrative Discussed with Dr. Jarvis. Assessment/Plan Date of Service: 09/29/16 SURGEON: Wellington Jarvis M.D. INDICATION: Choledocholithiasis. SUMMARY FINDINGS: Status post endoscopic retrograde cholangiopancreatography sphincterotomy and stone removal. RECOMMENDATIONS: s/p open chalo pain mgmt fu biopsies repeat LFTs ppi fu labs Subjective Gastrointestinal/Abdominal: Reports: abdominal pain Objective Last 24 Hour Vital Signs Date Time Temp Pulse Resp B/P Pulse Ox O2 Delivery O2 Flow Rate FiO2 10/05/16 08:48 96 162/82 10/05/16 08:32 97.0 96 20 162/82 99 Nasal Cannula 3.0 10/05/16 05:40 97.0 10/05/16 04:20 97.5 46 18 127/47 Room Air 10/05/16 04:00 97 10/05/16 02:19 97.0 10/05/16 00:10 97.0 92 18 162/98 98 Room Air 10/05/16 00:00 95 10/04/16 20:44 72 175/92 10/04/16 20:00 97.2 77 18 173/92 Nasal Cannula 2.0 97 10/04/16 20:00 84 10/04/16 17:43 72 18 94 10/04/16 16:00 75 10/04/16 16:00 97.2 72 18 128/94 94 Room Air 10/04/16 12:11 72 10/04/16 11:58 97.0 67 20 145/76 100 Nasal Cannula 4.0 Intake and Output 2/1/17 2/2/17 19:00 07:00 Intake Total 652.5 ml Output Total 640 ml 2300 ml Balance 12.5 ml -2300 ml Intake Oral 120 ml IV Total 532.5 ml Output Urine Total 600 ml 2300 ml Drainage Total 40 ml Laboratory Tests Test 10/05/16 07:35 White Blood Count 12.3 K/UL (4.8-10.8) H Red Blood Count 3.61 M/UL (4.70-6.10) L Hemoglobin 11.1 G/DL (14.2-18.0) L Hematocrit 32.2 % (42.0-52.0) L Mean Corpuscular Volume 89 FL (80-99) Mean Corpuscular Hemoglobin 30.6 PG (27.0-31.0) Mean Corpuscular Hemoglobin Concent 34.4 G/DL (32.0-36.0) Red Cell Distribution Width 12.3 % (11.6-14.8) Platelet Count 244 K/UL (150-450) Mean Platelet Volume 7.3 FL (6.5-10.1) Neutrophils (%) (Auto) 81.1 % (45.0-75.0) H Lymphocytes (%) (Auto) 10.4 % (20.0-45.0) L Monocytes (%) (Auto) 7.9 % (1.0-10.0) Eosinophils (%) (Auto) 0.1 % (0.0-3.0) Basophils (%) (Auto) 0.6 % (0.0-2.0) Sodium Level 135 mEQ/L (135-145) Potassium Level 3.4 mEQ/L (3.4-4.9) Chloride Level 95 mEQ/L (98-107) L Carbon Dioxide Level 22 mEQ/L (20-30) Anion Gap 18 (5-15) H Blood Urea Nitrogen 3 mg/dL (7-23) L Creatinine 0.7 mg/dL (0.7-1.2) Estimat Glomerular Filtration Rate mL/min (>60) Glucose Level 231 mg/dL (74-106) H Calcium Level 8.4 mg/dL (8.6-10.2) L Phosphorus Level 2.4 mg/dL (2.5-4.8) L Magnesium Level 1.5 mg/dL (1.7-2.5) L Total Bilirubin 1.0 mg/dL (0.0-1.2) Aspartate Amino Transf (AST/SGOT) 23 U/L (5-40) Alanine Aminotransferase (ALT/SGPT) 43 U/L (3-41) H Alkaline Phosphatase 240 U/L (40-129) H Total Protein 6.1 g/dL (6.6-8.7) L Albumin 3.3 g/dL (3.5-5.2) L Globulin 2.8 g/dL Albumin/Globulin Ratio 1.1 (1.0-2.7) Height (Feet): 5 Height (Inches): 7.00 Weight (Pounds): 152 General Appearance: no apparent distress, alert Cardiovascular: normal rate Respiratory/Chest: other - 2LNC Abdominal Exam: incision site Objective Pre-op Diagnosis: acute cholecystitis, choledocholithiasis Procedure: laparoscopic converted to open cholecystectomy Sweta Diaz N.P. Oct 05, 2016 10:42
--- NOTE | 2016-10-05 11:39 | General Progress Note ---
Assessment/Plan Status: stable Assessment/Plan 1- Sever Sepsis: controlled 2-Abn LFT: Improving 3- Cholangitis/ acute cholecystitis 4- Abn BNP 5-UTI 5- Gi-DVT Plan: status post ERCP status post Open cholecystectomy current management per surgery service Subjective ROS Limited/Unobtainable: Yes Gastrointestinal/Abdominal: Reports: abdomen distended, abdominal pain Allergies: Coded Allergies: No Known Allergies (Unverified , 09/29/16) Objective Last 24 Hour Vital Signs Date Time Temp Pulse Resp B/P Pulse Ox O2 Delivery O2 Flow Rate FiO2 10/05/16 08:48 96 162/82 10/05/16 08:32 97.0 96 20 162/82 99 Nasal Cannula 3.0 10/05/16 05:40 97.0 10/05/16 04:20 97.5 46 18 127/47 Room Air 10/05/16 04:00 97 10/05/16 02:19 97.0 10/05/16 00:10 97.0 92 18 162/98 98 Room Air 10/05/16 00:00 95 10/04/16 20:44 72 175/92 10/04/16 20:00 97.2 77 18 173/92 Nasal Cannula 2.0 97 10/04/16 20:00 84 10/04/16 17:43 72 18 94 10/04/16 16:00 75 10/04/16 16:00 97.2 72 18 128/94 94 Room Air 10/04/16 12:11 72 10/04/16 11:58 97.0 67 20 145/76 100 Nasal Cannula 4.0 Intake and Output 10/04/16 10/05/16 19:00 07:00 Intake Total 652.5 ml Output Total 640 ml 2300 ml Balance 12.5 ml -2300 ml Intake Oral 120 ml IV Total 532.5 ml Output Urine Total 600 ml 2300 ml Drainage Total 40 ml Laboratory Tests 10/05/16 07:35: White Blood Count 12.3H, Red Blood Count 3.61L, Hemoglobin 11.1L, Hematocrit 32.2L, Mean Corpuscular Volume 89, Mean Corpuscular Hemoglobin 30.6, Mean Corpuscular Hemoglobin Concent 34.4, Red Cell Distribution Width 12.3, Platelet Count 244, Mean Platelet Volume 7.3, Neutrophils (%) (Auto) 81.1H, Lymphocytes ( %) (Auto) 10.4L, Monocytes (%) (Auto) 7.9, Eosinophils (%) (Auto) 0.1, Basophils (%) (Auto) 0.6, Sodium Level 135, Potassium Level 3.4, Chloride Level 95L, Carbon Dioxide Level 22, Anion Gap 18H, Blood Urea Nitrogen 3L, Creatinine 0.7, Estimat Glomerular Filtration Rate , Glucose Level 231H, Calcium Level 8.4L , Phosphorus Level 2.4L, Magnesium Level 1.5L, Total Bilirubin 1.0, Aspartate Amino Transf (AST/SGOT) 23, Alanine Aminotransferase (ALT/SGPT) 43H, Alkaline Phosphatase 240H, Total Protein 6.1L, Albumin 3.3L, Globulin 2.8, Albumin/ Globulin Ratio 1.1 Height (Feet): 5 Height (Inches): 7.00 Weight (Pounds): 152 General Appearance: no apparent distress EENT: PERRL/EOMI Neck: supple Cardiovascular: normal rate Respiratory/Chest: lungs clear Abdomen: other - post laparotomy Extremities: non-tender Neurologic: outside sales consultant II-XII grossly normal Charles Wood MD Oct 05, 2016 11:39
--- NOTE | 2016-10-05 12:16 | Urology Progress Note ---
Assessment/Plan Assessment/Plan 1. Urinary retention. 2. Benign prostatic hypertrophy. 3. Probable neurogenic bladder. 4. Hematuria. 5. Pyuria. 6. Proteinuria. 7. Renal cyst. 8. Adrenal adenoma. 9. Urethral stricture. keep novak for now flomax and proscar added voiding trial later Subjective Allergies: Coded Allergies: No Known Allergies (Unverified , 09/29/16) Subjective all noted, feels fair Objective Last 24 Hour Vital Signs Date Time Temp Pulse Resp B/P Pulse Ox O2 Delivery O2 Flow Rate FiO2 10/05/16 08:48 96 162/82 10/05/16 08:32 97.0 96 20 162/82 99 Nasal Cannula 3.0 10/05/16 05:40 97.0 10/05/16 04:20 97.5 46 18 127/47 Room Air 10/05/16 04:00 97 10/05/16 02:19 97.0 10/05/16 00:10 97.0 92 18 162/98 98 Room Air 10/05/16 00:00 95 10/04/16 20:44 72 175/92 10/04/16 20:00 97.2 77 18 173/92 Nasal Cannula 2.0 97 10/04/16 20:00 84 10/04/16 17:43 72 18 94 10/04/16 16:00 75 10/04/16 16:00 97.2 72 18 128/94 94 Room Air Intake and Output 10/04/16 10/05/16 19:00 07:00 Intake Total 652.5 ml Output Total 640 ml 2300 ml Balance 12.5 ml -2300 ml Intake Oral 120 ml IV Total 532.5 ml Output Urine Total 600 ml 2300 ml Drainage Total 40 ml Microbiology Date/Time Source Procedure Growth Status 09/29/16 09:15 Blood Blood Culture - Final Strep Species, Alpha Hemolytic Complete Current Medications Medications (Trade) Dose Ordered Sig/Madina Route PRN Reason Start Time Stop Time Status Last Admin Dose Admin Acetaminophen (Tylenol) 500 mg EVERY 6 HOURS PRN ORAL Mild Pain/Temp > 100.5 09/29/16 13:15 10/29/16 13:14 10/02/16 22:05 Amlodipine Besylate 5 mg 5 mg DAILY ORAL 10/04/16 21:00 11/03/16 20:59 10/05/16 08:48 Aspirin 81 mg 81 mg DAILY ORAL 09/30/16 09:00 10/30/16 08:59 10/05/16 08:47 Clonidine HCl (Catapres) 0.1 mg Q6H PRN ORAL For High Blood Pressure 10/04/16 20:15 11/03/16 20:14 Dextrose (Dextrose 50%) STAT PRN IV Hypoglycemia 09/29/16 13:15 10/29/16 13:14 Dextrose/ Electrolytes (D5 0.45%NS W/ KCl 20mEq) 1,000 ml @ 125 mls/hr Q8H IV 10/03/16 16:30 11/02/16 16:29 10/05/16 08:47 Famotidine (Pepcid I.v.) 20 mg Q12HR IVP 09/29/16 21:00 10/29/16 20:59 10/05/16 08:47 Finasteride (Proscar) 5 mg DAILY ORAL 10/04/16 13:00 11/03/16 12:59 10/05/16 08:48 Heparin Sodium (Porcine) (Heparin 5000 units/ml) 5,000 units EVERY 12 HOURS SUBQ 09/29/16 21:00 10/29/16 20:59 10/05/16 08:47 Hydromorphone HCl (Dilaudid) 0.5 mg Q3H PRN IVP Pain Score 1-3 10/03/16 15:30 10/10/16 15:29 10/05/16 07:58 Hydromorphone HCl (Dilaudid) 1 mg Q3H PRN IVP pain score 4-6 10/03/16 15:30 10/10/16 15:29 10/05/16 01:49 Insulin Aspart (NovoLOG) BEFORE MEALS AND HS SUBQ 09/29/16 16:30 10/29/16 16:29 10/05/16 11:55 Magnesium Sulfate 100 ml @ 100 mls/hr Q1H IVPB 10/05/16 11:00 10/05/16 12:59 10/05/16 11:26 Morphine Sulfate (Morphine Sulfate) 2 mg Q8HR PRN IVP Severe Pain (Pain Scale 7-10) 09/29/16 13:15 10/06/16 13:14 10/05/16 05:10 Ondansetron HCl (Zofran) 4 mg Q6H PRN IVP Nausea & Vomiting 10/03/16 15:30 11/02/16 15:29 Pantoprazole (Protonix) 40 mg DAILY ORAL 09/30/16 09:00 10/30/16 08:59 10/05/16 08:48 Piperacillin Sod/ Tazobactam Sod/ Dextrose (Zosyn/D5W) 110 ml @ 27.5 mls/hr Q8H IVPB 09/29/16 18:00 10/06/16 17:59 10/05/16 09:23 Pravastatin Sodium (Pravachol) 20 mg BEDTIME ORAL 09/29/16 21:00 10/29/16 20:59 10/04/16 20:44 Sodium Chloride 1,000 ml @ 100 mls/hr Q10H IV 10/01/16 18:00 10/31/16 17:59 10/05/16 11:55 Sodium Phosphate/ Sodium Chloride (NaPO4/Sodium Chloride) 285 ml @ 47.5 mls/hr ONCE ONCE IVPB 10/05/16 13:00 10/05/16 18:59 Tamsulosin HCl (Flomax) 0.4 mg BEDTIME ORAL 10/04/16 21:00 11/03/16 20:59 10/04/16 20:44 Laboratory Tests 10/05/16 07:35: White Blood Count 12.3H, Red Blood Count 3.61L, Hemoglobin 11.1L, Hematocrit 32.2L, Mean Corpuscular Volume 89, Mean Corpuscular Hemoglobin 30.6, Mean Corpuscular Hemoglobin Concent 34.4, Red Cell Distribution Width 12.3, Platelet Count 244, Mean Platelet Volume 7.3, Neutrophils (%) (Auto) 81.1H, Lymphocytes ( %) (Auto) 10.4L, Monocytes (%) (Auto) 7.9, Eosinophils (%) (Auto) 0.1, Basophils (%) (Auto) 0.6, Sodium Level 135, Potassium Level 3.4, Chloride Level 95L, Carbon Dioxide Level 22, Anion Gap 18H, Blood Urea Nitrogen 3L, Creatinine 0.7, Estimat Glomerular Filtration Rate , Glucose Level 231H, Calcium Level 8.4L , Phosphorus Level 2.4L, Magnesium Level 1.5L, Total Bilirubin 1.0, Aspartate Amino Transf (AST/SGOT) 23, Alanine Aminotransferase (ALT/SGPT) 43H, Alkaline Phosphatase 240H, Total Protein 6.1L, Albumin 3.3L, Globulin 2.8, Albumin/ Globulin Ratio 1.1 Height (Feet): 5 Height (Inches): 7.00 Weight (Pounds): 152 Objective exam stable LEX RUIZ Oct 05, 2016 12:16
[2016-10-05 12:22] VITALS: BP 147/85
--- NOTE | 2016-10-05 12:58 | Cardiology Report ---
APPROVED REPORT EXAM: Two-dimensional and M-mode echocardiogram with Doppler and color Doppler. INDICATION Palpitations M-Mode DIMENSIONS IVSd0.9 (0.7-1.1cm)Left Atrium (MM)4.8 (1.6-4.0cm) LVDd5.2 (3.5-5.6cm)Aortic Root4.2 (2.0-3.7cm) PWd1.1 (0.7-1.1cm)Aortic Cusp Exc.2.0 (1.5-2.0cm) LVDs4.3 (2.5-4.0cm) PWs1.2 cm Normal left ventricular chamber size, systolic function and wall motion. Left ventricular ejection fraction estimated to be 55-60%. Mild left ventricular hypertrophy. Small posterior pericardial effusion. Mild bi-atrial and right ventricular enlargement by 2D. Focal aortic valve sclerosis with adequate cusp excursion Thickened mitral valve leaflets with normal excursion. Mild mitral annulus and aortic root calcification. Pulmonic valve not well visualized. Normal tricuspid valve structure. IVC is normal in size with physiologic collapse. A color flow and spectral Doppler study was performed and revealed: Mild aortic regurgitation. No mitral regurgitation. Left ventricular diastolic dysfunction grade 1. No tricuspid regurgitation.
[2016-10-05] MEDS ORDERED: Sodium Phosphate 30 MM in NS 275 ML IVPB ONE (13:00)
[2016-10-05 16:00] VITALS: BP 164/87
--- NOTE | 2016-10-05 17:51 | General Progress Note ---
Progress Note Progress Note Patient seen and examined at bedside. doing well. no acute events. taking in small amount of clears. no n/v/f/c. not very active. no BM yet. ALEKSEY drain with serous output Afebrile, HD stable, labs improved Abdomen soft, distended, tympanic incision c/d/i Continue current care and management. Keep him on sips of clears. do not advance diet. his abdomen is distended and tympanic. he feels well without n/v but dont want to push him. Needs to be more active. PT/OT Ambulate and OOB Rx as written ALEKSEY drain care and management. Pedrito Millan Oct 05, 2016 17:50
[2016-10-05 20:00] VITALS: BP 142/84
[2016-10-05] MEDS: Tamsulosin 0.4mg cap ORAL SCH (21:55)
[2016-10-06 00:10] VITALS: BP 142/57
[2016-10-06] MEDS: Piperacillin/Tazobactam 3.375 GM in D5W 110 ML IVPB SCH ×3 (01:56→18:58)
[2016-10-06] MEDS: D5 1/2NS w/KCl 20mEq 1,000 ML IV SCH ×2 (01:57→11:26)
[2016-10-06 04:15] VITALS: BP 154/90
[2016-10-06] MEDS: HYDROmorphone 1mg/ml Carpuject IVP PRN ×4 (04:57→21:54)
[2016-10-06] MEDS: NovoLOG Insulin Flexpen SUBQ SCH ×4 (06:28→21:53)
[2016-10-06] MEDS ORDERED: D5 1/4NS w/KCl 20mEq 1,000 ML IV SCH ×2 (06:45→09:30)
[2016-10-06 07:14] LABS: BASOPHILS % (AUTO) 0.4 % (0.0-2.0); EOSINOPHILS % (AUTO) 0.4 % (0.0-3.0); LYMPHOCYTES % (AUTO) 8.1 % (20.0-45.0); MEAN CORPUSCULAR HEMOGLOBIN 31.4 PG (27.0-31.0); MEAN CORPUSCULAR HGB CONC 35.4 G/DL (32.0-36.0); MEAN CORPUSCULAR VOLUME 89 FL (80-99); MEAN PLATELET VOLUME 7.5 FL (6.5-10.1); NEUTROPHILS % (AUTO) 84.1 % (45.0-75.0); PLATELET COUNT 252 K/UL (150-450); RED BLOOD COUNT 3.39 M/UL (4.70-6.10); RED CELL DISTRIBUTION WIDTH 12.2 % (11.6-14.8); WHITE BLOOD COUNT 11.6 K/UL (4.8-10.8)
[2016-10-06 07:22] LABS: ALANINE AMINOTRANSFERASE 31 U/L (3-41); ALBUMIN/GLOBULIN RATIO 0.8 (1.0-2.7); ANION GAP 13 (5-15); ASPARTATE AMINO TRANSFERASE 15 U/L (5-40); CALCIUM 8.1 mg/dL (8.6-10.2); CARBON DIOXIDE 23 mEQ/L (20-30); CHLORIDE 98 mEQ/L (98-107); CREATININE 0.7 mg/dL (0.7-1.2); HEMOLYSIS 2; MAGNESIUM 1.5 mg/dL (1.7-2.5); PHOSPHORUS 2.3 mg/dL (2.5-4.8); POTASSIUM 3.3 mEQ/L (3.4-4.9); SODIUM 134 mEQ/L (135-145); TOTAL PROTEIN 5.5 g/dL (6.6-8.7)
[2016-10-06 08:40] VITALS: BP 134/81
--- NOTE | 2016-10-06 09:05 | General Progress Note ---
Assessment/Plan Assessment/Plan 1- Sever Sepsis: controlled 2-Abn LFT: Improving 3- Cholangitis/ acute cholecystitis 4- Abn BNP 5-UTI 5- Gi-DVT 6. HypoNatremia Plan: status post ERCP status post Open cholecystectomy current management per surgery service Decreased IV fluid Subjective ROS Limited/Unobtainable: No Constitutional: Reports: no symptoms HEENT: Reports: no symptoms Neurologic/Psychiatric: Reports: no symptoms Allergies: Coded Allergies: No Known Allergies (Unverified , 09/29/16) Objective Last 24 Hour Vital Signs Date Time Temp Pulse Resp B/P Pulse Ox O2 Delivery O2 Flow Rate FiO2 10/06/16 08:40 97.7 90 20 134/81 99 Nasal Cannula 4.0 10/06/16 04:15 97.9 98 20 154/90 98 Nasal Cannula 2.0 10/06/16 04:00 89 10/06/16 00:10 97.9 51 20 142/57 100 Room Air 10/06/16 00:00 102 10/05/16 20:00 96 10/05/16 20:00 97.7 107 18 142/84 Nasal Cannula 2.0 98 10/05/16 16:00 96.4 108 20 164/87 Nasal Cannula 2.0 97 10/05/16 16:00 122 10/05/16 12:22 97.2 101 20 147/85 95 Nasal Cannula 3.0 10/05/16 12:00 96 Intake and Output 10/05/16 10/06/16 19:00 07:00 Intake Total 652.5 ml 1015.5 ml Output Total 1620 ml 1600 ml Balance -967.5 ml -584.5 ml Intake Oral 240 ml IV Total 412.5 ml 1015.5 ml Output Urine Total 1500 ml 1400 ml Drainage Total 120 ml 200 ml Laboratory Tests 10/06/16 06:20: White Blood Count 11.6H, Red Blood Count 3.39L, Hemoglobin 10.7L, Hematocrit 30.1L, Mean Corpuscular Volume 89, Mean Corpuscular Hemoglobin 31.4H, Mean Corpuscular Hemoglobin Concent 35.4, Red Cell Distribution Width 12.2, Platelet Count 252, Mean Platelet Volume 7.5, Neutrophils (%) (Auto) 84.1H, Lymphocytes ( %) (Auto) 8.1L, Monocytes (%) (Auto) 7.0, Eosinophils (%) (Auto) 0.4, Basophils (%) (Auto) 0.4, Sodium Level 134L, Potassium Level 3.3L, Chloride Level 98, Carbon Dioxide Level 23, Anion Gap 13, Blood Urea Nitrogen 3L, Creatinine 0.7, Estimat Glomerular Filtration Rate , Glucose Level 230H, Calcium Level 8.1L, Phosphorus Level 2.3L, Magnesium Level 1.5L, Total Bilirubin 0.9, Aspartate Amino Transf (AST/SGOT) 15, Alanine Aminotransferase (ALT/SGPT) 31, Alkaline Phosphatase 198H, Total Protein 5.5L, Albumin 2.6L, Globulin 2.9, Albumin/ Globulin Ratio 0.8L Height (Feet): 5 Height (Inches): 7.00 Weight (Pounds): 152 General Appearance: no apparent distress EENT: PERRL/EOMI Neck: supple Cardiovascular: normal rate Respiratory/Chest: lungs clear Abdomen: soft, distended, other - NO significant tenderness Extremities: non-tender Neurologic: manager clinical pharmacy II-XII grossly normal Charles Wood MD Oct 06, 2016 09:05
[2016-10-06] MEDS: Aspirin Baby 81mg ORAL SCH (09:18)
[2016-10-06] MEDS: Docusate 100mg cap ORAL SCH (09:19)
[2016-10-06] MEDS: Heparin 5000 units/ml inj SUBQ SCH ×2 (09:20→21:52)
--- NOTE | 2016-10-06 10:32 | GI Progress Note ---
Assessment/Plan Problems: (1) Epigastric abdominal pain ICD Codes: R10.13 - Epigastric pain SNOMED: 91454586 (2) Choledocholithiasis ICD Codes: K80.50 - Calculus of bile duct without cholangitis or cholecystitis without obstruction SNOMED: 440955698 (3) LFTs abnormal ICD Codes: R79.89 - Other specified abnormal findings of blood chemistry SNOMED: 688741426 (4) Common bile duct (CBD) obstruction ICD Codes: K83.1 - Obstruction of bile duct SNOMED: 29367930, 63954465 (5) Abdominal pain ICD Codes: R10.9 - Unspecified abdominal pain SNOMED: 77229082 Qualifiers: Qualified Codes: R10.11 - Right upper quadrant pain Status: stable Status Narrative Discussed with Dr. Jarvis. Assessment/Plan Date of Service: 09/29/16 SURGEON: Wellington Jarvis M.D. INDICATION: Choledocholithiasis. SUMMARY FINDINGS: Status post endoscopic retrograde cholangiopancreatography sphincterotomy and stone removal. RECOMMENDATIONS: s/p open chalo pain mgmt fu biopsies repeat LFTs ppi fu labs Subjective Gastrointestinal/Abdominal: Reports: abdominal pain - improvement Objective Last 24 Hour Vital Signs Date Time Temp Pulse Resp B/P Pulse Ox O2 Delivery O2 Flow Rate FiO2 10/06/16 09:19 90 134/81 10/06/16 08:40 97.7 90 20 134/81 99 Nasal Cannula 4.0 10/06/16 04:15 97.9 98 20 154/90 98 Nasal Cannula 2.0 10/06/16 04:00 89 10/06/16 00:10 97.9 51 20 142/57 100 Room Air 10/06/16 00:00 102 10/05/16 20:00 96 10/05/16 20:00 97.7 107 18 142/84 Nasal Cannula 2.0 98 10/05/16 16:00 96.4 108 20 164/87 Nasal Cannula 2.0 97 10/05/16 16:00 122 10/05/16 12:22 97.2 101 20 147/85 95 Nasal Cannula 3.0 10/05/16 12:00 96 Intake and Output 10/05/16 10/06/16 19:00 07:00 Intake Total 652.5 ml 1015.5 ml Output Total 1620 ml 1600 ml Balance -967.5 ml -584.5 ml Intake Oral 240 ml IV Total 412.5 ml 1015.5 ml Output Urine Total 1500 ml 1400 ml Drainage Total 120 ml 200 ml Laboratory Tests Test 10/06/16 06:20 White Blood Count 11.6 K/UL (4.8-10.8) H Red Blood Count 3.39 M/UL (4.70-6.10) L Hemoglobin 10.7 G/DL (14.2-18.0) L Hematocrit 30.1 % (42.0-52.0) L Mean Corpuscular Volume 89 FL (80-99) Mean Corpuscular Hemoglobin 31.4 PG (27.0-31.0) H Mean Corpuscular Hemoglobin Concent 35.4 G/DL (32.0-36.0) Red Cell Distribution Width 12.2 % (11.6-14.8) Platelet Count 252 K/UL (150-450) Mean Platelet Volume 7.5 FL (6.5-10.1) Neutrophils (%) (Auto) 84.1 % (45.0-75.0) H Lymphocytes (%) (Auto) 8.1 % (20.0-45.0) L Monocytes (%) (Auto) 7.0 % (1.0-10.0) Eosinophils (%) (Auto) 0.4 % (0.0-3.0) Basophils (%) (Auto) 0.4 % (0.0-2.0) Sodium Level 134 mEQ/L (135-145) L Potassium Level 3.3 mEQ/L (3.4-4.9) L Chloride Level 98 mEQ/L (98-107) Carbon Dioxide Level 23 mEQ/L (20-30) Anion Gap 13 (5-15) Blood Urea Nitrogen 3 mg/dL (7-23) L Creatinine 0.7 mg/dL (0.7-1.2) Estimat Glomerular Filtration Rate mL/min (>60) Glucose Level 230 mg/dL (74-106) H Calcium Level 8.1 mg/dL (8.6-10.2) L Phosphorus Level 2.3 mg/dL (2.5-4.8) L Magnesium Level 1.5 mg/dL (1.7-2.5) L Total Bilirubin 0.9 mg/dL (0.0-1.2) Aspartate Amino Transf (AST/SGOT) 15 U/L (5-40) Alanine Aminotransferase (ALT/SGPT) 31 U/L (3-41) Alkaline Phosphatase 198 U/L (40-129) H Total Protein 5.5 g/dL (6.6-8.7) L Albumin 2.6 g/dL (3.5-5.2) L Globulin 2.9 g/dL Albumin/Globulin Ratio 0.8 (1.0-2.7) L Height (Feet): 5 Height (Inches): 7.00 Weight (Pounds): 152 General Appearance: no apparent distress, alert, obese Cardiovascular: normal rate Respiratory/Chest: normal breath sounds, no respiratory distress Abdominal Exam: normal bowel sounds, non tender, soft Extremities: normal range of motion Objective Pre-op Diagnosis: acute cholecystitis, choledocholithiasis Procedure: laparoscopic converted to open cholecystectomy Sweta Diaz N.P. Oct 06, 2016 10:32
--- NOTE | 2016-10-06 12:02 | Urology Progress Note ---
Assessment/Plan Assessment/Plan 1. Urinary retention. 2. Benign prostatic hypertrophy. 3. Probable neurogenic bladder. 4. Hematuria. 5. Pyuria. 6. Proteinuria. 7. Renal cyst. 8. Adrenal adenoma. 9. Urethral stricture. keep novak for now flomax and proscar added voiding trial in am d/w pt and family d/w Dr. Wood Subjective Allergies: Coded Allergies: No Known Allergies (Unverified , 09/29/16) Subjective all noted, feels fair Objective Last 24 Hour Vital Signs Date Time Temp Pulse Resp B/P Pulse Ox O2 Delivery O2 Flow Rate FiO2 10/06/16 10:30 97.7 10/06/16 09:19 90 134/81 10/06/16 08:40 97.7 90 20 134/81 99 Nasal Cannula 4.0 10/06/16 08:00 91 10/06/16 04:15 97.9 98 20 154/90 98 Nasal Cannula 2.0 10/06/16 04:00 89 10/06/16 00:10 97.9 51 20 142/57 100 Room Air 10/06/16 00:00 102 10/05/16 20:00 96 10/05/16 20:00 97.7 107 18 142/84 Nasal Cannula 2.0 98 10/05/16 16:00 96.4 108 20 164/87 Nasal Cannula 2.0 97 10/05/16 16:00 122 10/05/16 12:22 97.2 101 20 147/85 95 Nasal Cannula 3.0 Intake and Output 10/05/16 10/06/16 19:00 07:00 Intake Total 652.5 ml 1015.5 ml Output Total 1620 ml 1600 ml Balance -967.5 ml -584.5 ml Intake Oral 240 ml IV Total 412.5 ml 1015.5 ml Output Urine Total 1500 ml 1400 ml Drainage Total 120 ml 200 ml Microbiology Date/Time Source Procedure Growth Status 09/29/16 09:15 Blood Blood Culture - Final Strep Species, Alpha Hemolytic Complete Current Medications Medications (Trade) Dose Ordered Sig/Madina Route PRN Reason Start Time Stop Time Status Last Admin Dose Admin Acetaminophen (Tylenol) 500 mg EVERY 6 HOURS PRN ORAL Mild Pain/Temp > 100.5 09/29/16 13:15 10/29/16 13:14 1/30/17 22:05 Amlodipine Besylate (Norvasc) 5 mg DAILY ORAL 10/04/16 21:00 11/03/16 20:59 10/06/16 09:19 Aspirin (ASA) 81 mg DAILY ORAL 09/30/16 09:00 10/30/16 08:59 10/06/16 09:18 Clonidine HCl (Catapres) 0.1 mg Q6H PRN ORAL For High Blood Pressure 10/04/16 20:15 11/03/16 20:14 Dextrose (Dextrose 50%) STAT PRN IV Hypoglycemia 09/29/16 13:15 10/29/16 13:14 Dextrose/ Electrolytes 1,000 ml @ 60 mls/hr [id number] IV 10/06/16 10:30 11/05/16 10:29 10/06/16 11:26 Docusate Sodium 100 mg 100 mg DAILY ORAL 10/06/16 09:00 11/05/16 08:59 10/06/16 09:19 Finasteride (Proscar) 5 mg DAILY ORAL 10/04/16 13:00 11/03/16 12:59 10/06/16 09:19 Heparin Sodium (Porcine) (Heparin 5000 units/ml) 5,000 units EVERY 12 HOURS SUBQ 09/29/16 21:00 10/29/16 20:59 10/06/16 09:20 Hydromorphone HCl (Dilaudid) 0.5 mg Q3H PRN IVP Pain Score 1-3 10/03/16 15:30 10/10/16 15:29 10/05/16 12:53 Hydromorphone HCl (Dilaudid) 1 mg Q3H PRN IVP pain score 4-6 10/03/16 15:30 10/10/16 15:29 10/06/16 10:00 Insulin Aspart (NovoLOG) BEFORE MEALS AND HS SUBQ 09/29/16 16:30 10/29/16 16:29 10/06/16 11:27 Magnesium Sulfate (Magnesium Sulfate 1gm/100ml) 100 ml @ 100 mls/hr Q1H IVPB 10/06/16 10:45 10/06/16 12:44 UNV Morphine Sulfate (Morphine Sulfate) 2 mg Q8HR PRN IVP Severe Pain (Pain Scale 7-10) 09/29/16 13:15 10/06/16 13:14 2/2/17 05:10 Ondansetron HCl (Zofran) 4 mg Q6H PRN IVP Nausea & Vomiting 10/03/16 15:30 11/02/16 15:29 Pantoprazole (Protonix) 40 mg DAILY ORAL 09/30/16 09:00 10/30/16 08:59 10/06/16 09:19 Piperacillin Sod/ Tazobactam Sod/ Dextrose (Zosyn/D5W) 110 ml @ 27.5 mls/hr Q8H IVPB 09/29/16 18:00 10/06/16 23:59 10/06/16 10:00 Potassium Chloride 40 meq 40 meq ONCE ONCE ORAL 10/06/16 10:45 10/06/16 10:46 UNV Pravastatin Sodium (Pravachol) 20 mg BEDTIME ORAL 09/29/16 21:00 10/29/16 20:59 10/05/16 21:55 Sennosides (Senokot) 8.6 mg BID ORAL 10/05/16 18:00 11/04/16 17:59 10/06/16 09:19 Sodium Phosphate/ Sodium Chloride (NaPO4/Sodium Chloride) 285 ml @ 47.5 mls/hr ONCE ONCE IVPB 10/06/16 10:45 10/06/16 16:44 UNV Tamsulosin HCl (Flomax) 0.4 mg BEDTIME ORAL 10/04/16 21:00 11/03/16 20:59 10/05/16 21:55 Laboratory Tests 10/06/16 06:20: White Blood Count 11.6H, Red Blood Count 3.39L, Hemoglobin 10.7L, Hematocrit 30.1L, Mean Corpuscular Volume 89, Mean Corpuscular Hemoglobin 31.4H, Mean Corpuscular Hemoglobin Concent 35.4, Red Cell Distribution Width 12.2, Platelet Count 252, Mean Platelet Volume 7.5, Neutrophils (%) (Auto) 84.1H, Lymphocytes ( %) (Auto) 8.1L, Monocytes (%) (Auto) 7.0, Eosinophils (%) (Auto) 0.4, Basophils (%) (Auto) 0.4, Sodium Level 134L, Potassium Level 3.3L, Chloride Level 98, Carbon Dioxide Level 23, Anion Gap 13, Blood Urea Nitrogen 3L, Creatinine 0.7, Estimat Glomerular Filtration Rate , Glucose Level 230H, Calcium Level 8.1L, Phosphorus Level 2.3L, Magnesium Level 1.5L, Total Bilirubin 0.9, Aspartate Amino Transf (AST/SGOT) 15, Alanine Aminotransferase (ALT/SGPT) 31, Alkaline Phosphatase 198H, Total Protein 5.5L, Albumin 2.6L, Globulin 2.9, Albumin/ Globulin Ratio 0.8L Height (Feet): 5 Height (Inches): 7.00 Weight (Pounds): 152 Objective exam stable LEX RUIZ Oct 06, 2016 12:02
[2016-10-06 12:30] VITALS: BP 124/75
--- NOTE | 2016-10-06 12:34 | General Progress Note ---
Progress Note Progress Note Patient seen and examined at bedside. No acute events. States he feels better today and pain improved. No n/v/f/c. lots of flatus yesterday and some today. tolerating clears. Abdomen still distended and tympanic Incision c/d/i drain with serous output leukocytosis improved Plan: continue current care and management sips of clears --> Do NOT advance diet yet. would like to see distention and tympany improved prior to advancing diet cont IV abx decrease IV fluids ambulate and oob incentive spirometry novak as per urology ( appreciate urology assistance) Pedrito Millan Oct 06, 2016 12:33
[2016-10-06] MEDS ORDERED: Fleet's Enema 133ml RECTAL ONE (13:30)
[2016-10-06] MEDS ORDERED: Sodium Phosphate 30 MM in NS 275 ML IVPB ONE (14:00)
[2016-10-06 16:44] VITALS: BP 143/81
--- NOTE | 2016-10-06 19:30 | Infectious Diseases Prog Note ---
Assessment/Plan Assessment/Plan A: The patient is a 75-year-old male with cholangitis vs cholecystitis, SP laparoscopic conversion to open cholecystectomy 10/02 SP Status post endoscopic retrograde cholangiopancreatography sphincterotomy and stone removal Fever , SP Bcx: Alpha-Strp leukocytosis mild Alk improving Ur Obst , SP Rosas CAD Hyperlipidemia Diabetes, Hypertension hx of myocardial infarction ex-smoker PLAN: DC IV Zosyn d# 7 and monitor pt off of AB Rx ( 10/04 SP Zyvox s# 3 ) Monitor CBC. Monitor BMP. We will follow GI and surgical recommendations Subjective Constitutional: Denies: anorexia, chills, drenching sweats, fatigue, fever, no symptoms, other Allergies: Coded Allergies: No Known Allergies (Unverified , 09/29/16) Objective Vital Signs Last 24 Hour Vital Signs Date Time Temp Pulse Resp B/P Pulse Ox O2 Delivery O2 Flow Rate FiO2 10/06/16 16:44 97.3 108 20 143/81 95 Nasal Cannula 4.0 10/06/16 12:30 97.0 94 20 124/75 99 Nasal Cannula 4.0 10/06/16 12:00 102 10/06/16 10:30 97.7 10/06/16 09:19 90 134/81 10/06/16 08:40 97.7 90 20 134/81 99 Nasal Cannula 4.0 10/06/16 08:00 91 10/06/16 04:15 97.9 98 20 154/90 98 Nasal Cannula 2.0 10/06/16 04:00 89 10/06/16 00:10 97.9 51 20 142/57 100 Room Air 10/06/16 00:00 102 10/05/16 20:00 96 10/05/16 20:00 97.7 107 18 142/84 Nasal Cannula 2.0 98 Height (Feet): 5 Height (Inches): 7.00 Weight (Pounds): 152 HEENT: anicteric Respiratory/Chest: no respiratory distress Cardiovascular: no gallop/murmur Genitourinary: normal external genitalia Laboratory Tests Test 10/06/16 06:20 White Blood Count 11.6 K/UL (4.8-10.8) H Red Blood Count 3.39 M/UL (4.70-6.10) L Hemoglobin 10.7 G/DL (14.2-18.0) L Hematocrit 30.1 % (42.0-52.0) L Mean Corpuscular Volume 89 FL (80-99) Mean Corpuscular Hemoglobin 31.4 PG (27.0-31.0) H Mean Corpuscular Hemoglobin Concent 35.4 G/DL (32.0-36.0) Red Cell Distribution Width 12.2 % (11.6-14.8) Platelet Count 252 K/UL (150-450) Mean Platelet Volume 7.5 FL (6.5-10.1) Neutrophils (%) (Auto) 84.1 % (45.0-75.0) H Lymphocytes (%) (Auto) 8.1 % (20.0-45.0) L Monocytes (%) (Auto) 7.0 % (1.0-10.0) Eosinophils (%) (Auto) 0.4 % (0.0-3.0) Basophils (%) (Auto) 0.4 % (0.0-2.0) Sodium Level 134 mEQ/L (135-145) L Potassium Level 3.3 mEQ/L (3.4-4.9) L Chloride Level 98 mEQ/L (98-107) Carbon Dioxide Level 23 mEQ/L (20-30) Anion Gap 13 (5-15) Blood Urea Nitrogen 3 mg/dL (7-23) L Creatinine 0.7 mg/dL (0.7-1.2) Estimat Glomerular Filtration Rate mL/min (>60) Glucose Level 230 mg/dL (74-106) H Calcium Level 8.1 mg/dL (8.6-10.2) L Phosphorus Level 2.3 mg/dL (2.5-4.8) L Magnesium Level 1.5 mg/dL (1.7-2.5) L Total Bilirubin 0.9 mg/dL (0.0-1.2) Aspartate Amino Transf (AST/SGOT) 15 U/L (5-40) Alanine Aminotransferase (ALT/SGPT) 31 U/L (3-41) Alkaline Phosphatase 198 U/L (40-129) H Total Protein 5.5 g/dL (6.6-8.7) L Albumin 2.6 g/dL (3.5-5.2) L Globulin 2.9 g/dL Albumin/Globulin Ratio 0.8 (1.0-2.7) L Current Medications Medications (Trade) Dose Ordered Sig/Madina Route PRN Reason Start Time Stop Time Status Last Admin Dose Admin Acetaminophen (Tylenol) 500 mg EVERY 6 HOURS PRN ORAL Mild Pain/Temp > 100.5 09/29/16 13:15 10/29/16 13:14 10/02/16 22:05 Amlodipine Besylate (Norvasc) 5 mg DAILY ORAL 10/04/16 21:00 11/03/16 20:59 10/06/16 09:19 Aspirin (ASA) 81 mg DAILY ORAL 09/30/16 09:00 10/30/16 08:59 10/06/16 09:18 Clonidine HCl (Catapres) 0.1 mg Q6H PRN ORAL For High Blood Pressure 10/04/16 20:15 11/03/16 20:14 Dextrose (Dextrose 50%) STAT PRN IV Hypoglycemia 09/29/16 13:15 10/29/16 13:14 Dextrose/ Electrolytes 1,000 ml @ 60 mls/hr [id number] IV 10/06/16 10:30 11/05/16 10:29 10/06/16 11:26 Docusate Sodium 100 mg 100 mg DAILY ORAL 10/06/16 09:00 11/05/16 08:59 10/06/16 09:19 Finasteride (Proscar) 5 mg DAILY ORAL 10/04/16 13:00 11/03/16 12:59 10/06/16 09:19 Heparin Sodium (Porcine) (Heparin 5000 units/ml) 5,000 units EVERY 12 HOURS SUBQ 09/29/16 21:00 10/29/16 20:59 10/06/16 09:20 Hydromorphone HCl (Dilaudid) 0.5 mg Q3H PRN IVP Pain Score 1-3 10/03/16 15:30 10/10/16 15:29 10/05/16 12:53 Hydromorphone HCl (Dilaudid) 1 mg Q3H PRN IVP pain score 4-6 10/03/16 15:30 10/10/16 15:29 10/06/16 17:38 Insulin Aspart (NovoLOG) BEFORE MEALS AND HS SUBQ 09/29/16 16:30 10/29/16 16:29 10/06/16 17:18 Ondansetron HCl (Zofran) 4 mg Q6H PRN IVP Nausea & Vomiting 10/03/16 15:30 11/02/16 15:29 Pantoprazole (Protonix) 40 mg DAILY ORAL 09/30/16 09:00 10/30/16 08:59 10/06/16 09:19 Piperacillin Sod/ Tazobactam Sod/ Dextrose (Zosyn/D5W) 110 ml @ 27.5 mls/hr Q8H IVPB 09/29/16 18:00 10/06/16 23:59 10/06/16 18:58 Pravastatin Sodium (Pravachol) 20 mg BEDTIME ORAL 09/29/16 21:00 10/29/16 20:59 10/05/16 21:55 Sennosides (Senokot) 8.6 mg BID ORAL 10/05/16 18:00 11/04/16 17:59 10/06/16 17:15 Sodium Phosphate/ Sodium Chloride (NaPO4/Sodium Chloride) 285 ml @ 47.5 mls/hr ONCE ONCE IVPB 10/06/16 14:00 10/06/16 19:59 10/06/16 13:43 Tamsulosin HCl (Flomax) 0.4 mg BEDTIME ORAL 10/04/16 21:00 11/03/16 20:59 10/05/16 21:55 ROSLYN KEN M.D. Oct 06, 2016 19:30
[2016-10-06] MEDS: Acetaminophen 500mg (ES) tab ORAL PRN (19:59)
[2016-10-06 20:19] VITALS: BP 138/89
[2016-10-06] MEDS: Tamsulosin 0.4mg cap ORAL SCH (21:54)
[2016-10-07 00:10] VITALS: BP 157/69
[2016-10-07] MEDS: HYDROmorphone 1mg/ml Carpuject IVP PRN ×5 (01:51→18:51)
[2016-10-07] MEDS: D5 1/2NS w/KCl 20mEq 1,000 ML IV SCH ×2 (03:49→22:58)
[2016-10-07 04:21] VITALS: BP 140/78
[2016-10-07] MEDS: NovoLOG Insulin Flexpen SUBQ SCH ×4 (06:28→22:41)
[2016-10-07 06:42] LABS: BASOPHILS % (AUTO) 0.5 % (0.0-2.0); EOSINOPHILS % (AUTO) 1.3 % (0.0-3.0); LYMPHOCYTES % (AUTO) 7.5 % (20.0-45.0); MEAN CORPUSCULAR HEMOGLOBIN 30.6 PG (27.0-31.0); MEAN CORPUSCULAR HGB CONC 34.4 G/DL (32.0-36.0); MEAN CORPUSCULAR VOLUME 89 FL (80-99); MEAN PLATELET VOLUME 6.6 FL (6.5-10.1); MONOCYTES % (AUTO) 6.9 % (1.0-10.0); NEUTROPHILS % (AUTO) 83.8 % (45.0-75.0); PLATELET COUNT 315 K/UL (150-450); RED BLOOD COUNT 3.41 M/UL (4.70-6.10); RED CELL DISTRIBUTION WIDTH 12.4 % (11.6-14.8)
[2016-10-07 07:18] LABS: ANION GAP 14 (5-15); CALCIUM 8.4 mg/dL (8.6-10.2); CARBON DIOXIDE 25 mEQ/L (20-30); CHLORIDE 93 mEQ/L (98-107); CREATININE 0.6 mg/dL (0.7-1.2); HEMOLYSIS 1; MAGNESIUM 1.5 mg/dL (1.7-2.5); PHOSPHORUS 2.5 mg/dL (2.5-4.8); POTASSIUM 3.5 mEQ/L (3.4-4.9); SODIUM 132 mEQ/L (135-145)
--- NOTE | 2016-10-07 07:37 | Infectious Diseases Prog Note ---
Assessment/Plan Assessment/Plan ASSESSMENT: 75-year-old male with: cholangitis vs cholecystitis SP Rx SP laparoscopic conversion to open cholecystectomy 10/02 SP Status post endoscopic retrograde cholangiopancreatography sphincterotomy and stone removal Fever - recurrent low grade x1 Bcx: Alpha-Strp SP Rx TTE(-) veg leukocytosis - improved Ur Obst , SP Novak, removed 10/07 CAD Diabetes NKDA Full Code PLAN: monitor pt off of AB Rx for now ( 10/06 SP IV Zosyn d# 7 ) ( 10/04 SP Zyvox s# 3 ) Monitor CBC, temperatures, re-culture if acute change Monitor CMP Subjective Allergies: Coded Allergies: No Known Allergies (Unverified , 09/29/16) Subjective low grade fever x1. no new complaint novak removed Objective Vital Signs Last 24 Hour Vital Signs Date Time Temp Pulse Resp B/P Pulse Ox O2 Delivery O2 Flow Rate FiO2 10/07/16 04:21 97.3 91 24 140/78 98 Nasal Cannula 2.0 10/07/16 04:00 92 10/07/16 00:10 97.7 104 20 157/69 98 Nasal Cannula 2.0 10/07/16 00:00 103 10/06/16 20:58 97.7 10/06/16 20:19 100.9 110 19 138/89 96 Nasal Cannula 10/06/16 20:00 114 10/06/16 16:44 97.3 108 20 143/81 95 Nasal Cannula 4.0 10/06/16 16:00 107 10/06/16 12:30 97.0 94 20 124/75 99 Nasal Cannula 4.0 10/06/16 12:00 102 10/06/16 10:30 97.7 10/06/16 09:19 90 134/81 10/06/16 08:40 97.7 90 20 134/81 99 Nasal Cannula 4.0 10/06/16 08:00 91 Height (Feet): 5 Height (Inches): 7.00 Weight (Pounds): 152 General Appearance: no acute distress Respiratory/Chest: no respiratory distress Cardiovascular: normal rate, regular rhythm Abdomen: normal bowel sounds, soft, non tender, other - ALEKSEY Laboratory Tests Test 10/07/16 06:10 White Blood Count 11.0 K/UL (4.8-10.8) H Red Blood Count 3.41 M/UL (4.70-6.10) L Hemoglobin 10.4 G/DL (14.2-18.0) L Hematocrit 30.4 % (42.0-52.0) L Mean Corpuscular Volume 89 FL (80-99) Mean Corpuscular Hemoglobin 30.6 PG (27.0-31.0) Mean Corpuscular Hemoglobin Concent 34.4 G/DL (32.0-36.0) Red Cell Distribution Width 12.4 % (11.6-14.8) Platelet Count 315 K/UL (150-450) Mean Platelet Volume 6.6 FL (6.5-10.1) Neutrophils (%) (Auto) 83.8 % (45.0-75.0) H Lymphocytes (%) (Auto) 7.5 % (20.0-45.0) L Monocytes (%) (Auto) 6.9 % (1.0-10.0) Eosinophils (%) (Auto) 1.3 % (0.0-3.0) Basophils (%) (Auto) 0.5 % (0.0-2.0) Sodium Level 132 mEQ/L (135-145) L Potassium Level 3.5 mEQ/L (3.4-4.9) Chloride Level 93 mEQ/L (98-107) L Carbon Dioxide Level 25 mEQ/L (20-30) Anion Gap 14 (5-15) Blood Urea Nitrogen 4 mg/dL (7-23) L Creatinine 0.6 mg/dL (0.7-1.2) L Estimat Glomerular Filtration Rate mL/min (>60) Glucose Level 197 mg/dL (74-106) H Calcium Level 8.4 mg/dL (8.6-10.2) L Phosphorus Level 2.5 mg/dL (2.5-4.8) Magnesium Level 1.5 mg/dL (1.7-2.5) L Current Medications Medications (Trade) Dose Ordered Sig/Madina Route PRN Reason Start Time Stop Time Status Last Admin Dose Admin Acetaminophen (Tylenol) 500 mg EVERY 6 HOURS PRN ORAL Mild Pain/Temp > 100.5 09/29/16 13:15 10/29/16 13:14 10/06/16 19:59 Amlodipine Besylate (Norvasc) 5 mg DAILY ORAL 10/04/16 21:00 11/03/16 20:59 10/06/16 09:19 Aspirin (ASA) 81 mg DAILY ORAL 09/30/16 09:00 10/30/16 08:59 10/06/16 09:18 Clonidine HCl (Catapres) 0.1 mg Q6H PRN ORAL For High Blood Pressure 10/04/16 20:15 11/03/16 20:14 Dextrose (Dextrose 50%) STAT PRN IV Hypoglycemia 09/29/16 13:15 10/29/16 13:14 Dextrose/ Electrolytes (D5 0.45%NS W/ KCl 20mEq) 1,000 ml @ 60 mls/hr [id number] IV 10/06/16 10:30 11/05/16 10:29 10/07/16 03:49 Docusate Sodium 100 mg 100 mg DAILY ORAL 10/06/16 09:00 11/05/16 08:59 10/06/16 09:19 Finasteride (Proscar) 5 mg DAILY ORAL 10/04/16 13:00 11/03/16 12:59 10/06/16 09:19 Heparin Sodium (Porcine) (Heparin 5000 units/ml) 5,000 units EVERY 12 HOURS SUBQ 09/29/16 21:00 10/29/16 20:59 10/06/16 21:52 Hydromorphone HCl (Dilaudid) 0.5 mg Q3H PRN IVP Pain Score 1-3 10/03/16 15:30 10/10/16 15:29 10/05/16 12:53 Hydromorphone HCl (Dilaudid) 1 mg Q3H PRN IVP pain score 4-6 10/03/16 15:30 10/10/16 15:29 10/07/16 05:41 Insulin Aspart (NovoLOG) BEFORE MEALS AND HS SUBQ 09/29/16 16:30 10/29/16 16:29 10/07/16 06:28 Ondansetron HCl (Zofran) 4 mg Q6H PRN IVP Nausea & Vomiting 10/03/16 15:30 11/02/16 15:29 Pantoprazole (Protonix) 40 mg DAILY ORAL 09/30/16 09:00 10/30/16 08:59 10/06/16 09:19 Pravastatin Sodium (Pravachol) 20 mg BEDTIME ORAL 09/29/16 21:00 10/29/16 20:59 10/06/16 21:55 Sennosides (Senokot) 8.6 mg BID ORAL 10/05/16 18:00 11/04/16 17:59 10/06/16 17:15 Tamsulosin HCl (Flomax) 0.4 mg BEDTIME ORAL 10/04/16 21:00 11/03/16 20:59 10/06/16 21:54 OZZIE FORTE Oct 07, 2016 07:37
[2016-10-07 08:00] VITALS: BP 146/85
[2016-10-07] MEDS: Docusate 100mg cap ORAL SCH (08:41)
[2016-10-07] MEDS: Aspirin Baby 81mg ORAL SCH (08:42)
[2016-10-07] MEDS: Heparin 5000 units/ml inj SUBQ SCH ×2 (08:44→22:40)
--- NOTE | 2016-10-07 09:49 | Urology Progress Note ---
Assessment/Plan Assessment/Plan 1. Urinary retention. 2. Benign prostatic hypertrophy. 3. Probable neurogenic bladder. 4. Hematuria. 5. Pyuria. 6. Proteinuria. 7. Renal cyst. 8. Adrenal adenoma. 9. Urethral stricture. voiding trial today cont flomax and proscar check PVR and reinsert novak PRN Subjective Allergies: Coded Allergies: No Known Allergies (Unverified , 09/29/16) Subjective all noted, feels fair, novak removed early am Objective Last 24 Hour Vital Signs Date Time Temp Pulse Resp B/P Pulse Ox O2 Delivery O2 Flow Rate FiO2 10/07/16 08:42 113 146/85 10/07/16 08:00 97.9 113 20 146/85 99 Nasal Cannula 3.0 10/07/16 04:21 97.3 91 24 140/78 98 Nasal Cannula 2.0 10/07/16 04:00 92 10/07/16 00:10 97.7 104 20 157/69 98 Nasal Cannula 2.0 10/07/16 00:00 103 10/06/16 20:58 97.7 10/06/16 20:19 100.9 110 19 138/89 96 Nasal Cannula 10/06/16 20:00 114 10/06/16 16:44 97.3 108 20 143/81 95 Nasal Cannula 4.0 10/06/16 16:00 107 10/06/16 12:30 97.0 94 20 124/75 99 Nasal Cannula 4.0 10/06/16 12:00 102 10/06/16 10:30 97.7 Intake and Output 10/06/16 10/07/16 19:00 07:00 Intake Total 1135.0 ml 829.0 ml Output Total 470 ml 1320 ml Balance 665.0 ml -491.0 ml Intake Oral 240 ml IV Total 895.0 ml 829.0 ml Output Urine Total 400 ml 1050 ml Drainage Total 70 ml 270 ml Microbiology Date/Time Source Procedure Growth Status 09/29/16 09:15 Blood Blood Culture - Final Strep Species, Alpha Hemolytic Complete Labs Test 09/29/16 09:00 09/29/16 11:10 09/29/16 11:50 09/29/16 13:55 Differential Total Cells Counted 100 Neutrophils % (Manual) 85 % (45-75) Lymphocytes % (Manual) 3 % (20-45) Monocytes % (Manual) 7 % (1-10) Eosinophils % (Manual) 0 % (0-3) Basophils % (Manual) 0 % (0-2) Band Neutrophils 5 % (0-8) Platelet Estimate Adequate Platelet Morphology Normal Red Blood Cell Morphology Normal Total Creatine Kinase 51 U/L (38-174) Creatine Kinase MB < 1.5 ng/mL (< 6.7) Creatine Kinase MB Relative Index Pro-B-Type Natriuretic Peptide 3401 pg/mL (0-450) Lipase 48 U/L (< 60) Urine Color Brown Urine Appearance Slightly cloudy Urine pH 5 (4.5-8.0) Urine Specific [place] 1.010 (1.005-1.035) Urine Protein 3+ (NEGATIVE) Urine Glucose (UA) 1+ (NEGATIVE) Urine Ketones Negative (NEGATIVE) Urine Occult Blood 4+ (NEGATIVE) Urine Nitrite Positive (NEGATIVE) Urine Bilirubin 3+ (NEGATIVE) Urine Ictotest Positive Urine Urobilinogen 8 MG/DL (0.0-1.0) Urine Leukocyte Esterase 1+ (NEGATIVE) Urine RBC 2-4 /HPF (0 - 0) Urine WBC 5-10 /HPF (0 - 0) Urine Squamous Epithelial Cells Occasional /LPF Urine Bacteria Few /HPF (NONE) Lactic Acid Level 3.90 mmol/L (0.66-2.22) Triglycerides Level 149 mg/dL (< 150) Cholesterol Level 95 mg/dL (< 200) LDL Cholesterol 56 mg/dL (60-99) HDL Cholesterol 9 mg/dL (> 60) Cholesterol/HDL Ratio 10.6 (3.3-4.4) Thyroid Stimulating Hormone (TSH) 2.230 uIU/mL (0.300-4.500) Test 09/30/16 06:10 10/01/16 04:50 10/02/16 05:10 10/06/16 06:20 Troponin I < 0.30 ng/mL (<=0.30) Direct Bilirubin 0.8 mg/dL (0.1-0.3) Prothrombin Time 11.3 SEC (9.30-11.50) Prothromb Time International Ratio 1.1 (0.9-1.1) Activated Partial Thromboplast Time 30 SEC (23-33) Total Bilirubin 0.9 mg/dL (0.0-1.2) Aspartate Amino Transf (AST/SGOT) 15 U/L (5-40) Alanine Aminotransferase (ALT/SGPT) 31 U/L (3-41) Alkaline Phosphatase 198 U/L (40-129) Total Protein 5.5 g/dL (6.6-8.7) Albumin 2.6 g/dL (3.5-5.2) Globulin 2.9 g/dL Albumin/Globulin Ratio 0.8 (1.0-2.7) Test 10/07/16 06:10 White Blood Count 11.0 K/UL (4.8-10.8) Red Blood Count 3.41 M/UL (4.70-6.10) Hemoglobin 10.4 G/DL (14.2-18.0) Hematocrit 30.4 % (42.0-52.0) Mean Corpuscular Volume 89 FL (80-99) Mean Corpuscular Hemoglobin 30.6 PG (27.0-31.0) Mean Corpuscular Hemoglobin Concent 34.4 G/DL (32.0-36.0) Red Cell Distribution Width 12.4 % (11.6-14.8) Platelet Count 315 K/UL (150-450) Mean Platelet Volume 6.6 FL (6.5-10.1) Neutrophils (%) (Auto) 83.8 % (45.0-75.0) Lymphocytes (%) (Auto) 7.5 % (20.0-45.0) Monocytes (%) (Auto) 6.9 % (1.0-10.0) Eosinophils (%) (Auto) 1.3 % (0.0-3.0) Basophils (%) (Auto) 0.5 % (0.0-2.0) Sodium Level 132 mEQ/L (135-145) Potassium Level 3.5 mEQ/L (3.4-4.9) Chloride Level 93 mEQ/L (98-107) Carbon Dioxide Level 25 mEQ/L (20-30) Anion Gap 14 (5-15) Blood Urea Nitrogen 4 mg/dL (7-23) Creatinine 0.6 mg/dL (0.7-1.2) Estimat Glomerular Filtration Rate mL/min (>60) Glucose Level 197 mg/dL (74-106) Calcium Level 8.4 mg/dL (8.6-10.2) Phosphorus Level 2.5 mg/dL (2.5-4.8) Magnesium Level 1.5 mg/dL (1.7-2.5) Laboratory Tests 10/07/16 06:10: White Blood Count 11.0H, Red Blood Count 3.41L, Hemoglobin 10.4L, Hematocrit 30.4L, Mean Corpuscular Volume 89, Mean Corpuscular Hemoglobin 30.6, Mean Corpuscular Hemoglobin Concent 34.4, Red Cell Distribution Width 12.4, Platelet Count 315, Mean Platelet Volume 6.6, Neutrophils (%) (Auto) 83.8H, Lymphocytes ( %) (Auto) 7.5L, Monocytes (%) (Auto) 6.9, Eosinophils (%) (Auto) 1.3, Basophils (%) (Auto) 0.5, Sodium Level 132L, Potassium Level 3.5, Chloride Level 93L, Carbon Dioxide Level 25, Anion Gap 14, Blood Urea Nitrogen 4L, Creatinine 0.6L, Estimat Glomerular Filtration Rate , Glucose Level 197H, Calcium Level 8.4L, Phosphorus Level 2.5, Magnesium Level 1.5L Height (Feet): 5 Height (Inches): 7.00 Weight (Pounds): 152 Objective exam stable LEX RUIZ Oct 07, 2016 09:49
[2016-10-07] MEDS ORDERED: Tubing IV Secondary IV ONE ×2 (11:12)
[2016-10-07] MEDS ORDERED: NS 275ml ONE ×2 (11:12)
--- NOTE | 2016-10-07 11:52 | General Surgery Progress Note ---
General Surgery-Progress Note Subjective Procedure Performed laparoscopy, open cholecystectomy Symptoms: improved Objective Last 24 Hour Vital Signs Date Time Temp Pulse Resp B/P Pulse Ox O2 Delivery O2 Flow Rate FiO2 10/07/16 08:42 113 146/85 10/07/16 08:00 97.9 113 20 146/85 99 Nasal Cannula 3.0 10/07/16 04:21 97.3 91 24 140/78 98 Nasal Cannula 2.0 10/07/16 04:00 92 10/07/16 00:10 97.7 104 20 157/69 98 Nasal Cannula 2.0 10/07/16 00:00 103 10/06/16 20:58 97.7 10/06/16 20:19 100.9 110 19 138/89 96 Nasal Cannula 10/06/16 20:00 114 10/06/16 16:44 97.3 108 20 143/81 95 Nasal Cannula 4.0 10/06/16 16:00 107 10/06/16 12:30 97.0 94 20 124/75 99 Nasal Cannula 4.0 10/06/16 12:00 102 I&O Intake and Output 10/06/16 10/07/16 19:00 07:00 Intake Total 1135.0 ml 829.0 ml Output Total 470 ml 1320 ml Balance 665.0 ml -491.0 ml Intake Oral 240 ml IV Total 895.0 ml 829.0 ml Output Urine Total 400 ml 1050 ml Drainage Total 70 ml 270 ml Wound: clean Drains: christie - scanty drainage Respiratory: clear Abdomen: distended, present bowel sounds Extremities: no edema Laboratory Tests Test 10/07/16 06:10 White Blood Count 11.0 K/UL (4.8-10.8) H Red Blood Count 3.41 M/UL (4.70-6.10) L Hemoglobin 10.4 G/DL (14.2-18.0) L Hematocrit 30.4 % (42.0-52.0) L Mean Corpuscular Volume 89 FL (80-99) Mean Corpuscular Hemoglobin 30.6 PG (27.0-31.0) Mean Corpuscular Hemoglobin Concent 34.4 G/DL (32.0-36.0) Red Cell Distribution Width 12.4 % (11.6-14.8) Platelet Count 315 K/UL (150-450) Mean Platelet Volume 6.6 FL (6.5-10.1) Neutrophils (%) (Auto) 83.8 % (45.0-75.0) H Lymphocytes (%) (Auto) 7.5 % (20.0-45.0) L Monocytes (%) (Auto) 6.9 % (1.0-10.0) Eosinophils (%) (Auto) 1.3 % (0.0-3.0) Basophils (%) (Auto) 0.5 % (0.0-2.0) Sodium Level 132 mEQ/L (135-145) L Potassium Level 3.5 mEQ/L (3.4-4.9) Chloride Level 93 mEQ/L (98-107) L Carbon Dioxide Level 25 mEQ/L (20-30) Anion Gap 14 (5-15) Blood Urea Nitrogen 4 mg/dL (7-23) L Creatinine 0.6 mg/dL (0.7-1.2) L Estimat Glomerular Filtration Rate mL/min (>60) Glucose Level 197 mg/dL (74-106) H Calcium Level 8.4 mg/dL (8.6-10.2) L Phosphorus Level 2.5 mg/dL (2.5-4.8) Magnesium Level 1.5 mg/dL (1.7-2.5) L Additional Comments Ileus persists, no N/V, continues on clears Assessment Additional Comments Abdominal x rays Cont clears Ambulate D/C antibiotics AXEL REEDER Oct 07, 2016 11:52
[2016-10-07 12:00] VITALS: BP 160/81
[2016-10-07] MEDS: Promethazine/Codeine 5ml UD ORAL PRN ×2 (13:30→22:47)
[2016-10-07 16:00] VITALS: BP 138/84
--- NOTE | 2016-10-07 17:16 | Internal Med Progress Note ---
Subjective Date of Service: Oct 07, 2016 Physician Name Reji Salazar Attending Physician Charles Wood MD Current Medications Medications (Trade) Dose Ordered Sig/Madina Route PRN Reason Start Time Stop Time Status Last Admin Dose Admin Acetaminophen (Tylenol) 500 mg EVERY 6 HOURS PRN ORAL Mild Pain/Temp > 100.5 09/29/16 13:15 10/29/16 13:14 10/06/16 19:59 Amlodipine Besylate (Norvasc) 5 mg DAILY ORAL 10/04/16 21:00 11/03/16 20:59 10/07/16 08:42 Aspirin (ASA) 81 mg DAILY ORAL 09/30/16 09:00 10/30/16 08:59 10/07/16 08:42 Clonidine HCl (Catapres) 0.1 mg Q6H PRN ORAL For High Blood Pressure 10/04/16 20:15 11/03/16 20:14 Dextrose (Dextrose 50%) STAT PRN IV Hypoglycemia 09/29/16 13:15 10/29/16 13:14 Dextrose/ Electrolytes (D5 0.45%NS W/ KCl 20mEq) 1,000 ml @ 60 mls/hr [id number] IV 10/06/16 10:30 11/05/16 10:29 10/07/16 03:49 Docusate Sodium 100 mg 100 mg DAILY ORAL 10/06/16 09:00 11/05/16 08:59 10/07/16 08:41 Finasteride (Proscar) 5 mg DAILY ORAL 10/04/16 13:00 11/03/16 12:59 10/07/16 08:42 Heparin Sodium (Porcine) (Heparin 5000 units/ml) 5,000 units EVERY 12 HOURS SUBQ 09/29/16 21:00 10/29/16 20:59 10/07/16 08:44 Hydromorphone HCl (Dilaudid) 0.5 mg Q3H PRN IVP Pain Score 1-3 10/03/16 15:30 10/10/16 15:29 10/05/16 12:53 Hydromorphone HCl (Dilaudid) 1 mg Q3H PRN IVP pain score 4-6 10/03/16 15:30 10/10/16 15:29 10/07/16 12:01 Insulin Aspart (NovoLOG) BEFORE MEALS AND HS SUBQ 09/29/16 16:30 10/29/16 16:29 10/07/16 16:54 Ondansetron HCl (Zofran) 4 mg Q6H PRN IVP Nausea & Vomiting 10/03/16 15:30 11/02/16 15:29 Pantoprazole (Protonix) 40 mg DAILY ORAL 09/30/16 09:00 10/30/16 08:59 10/07/16 08:41 Pravastatin Sodium (Pravachol) 20 mg BEDTIME ORAL 09/29/16 21:00 10/29/16 20:59 10/06/16 21:55 Promethazine HCl/ Codeine (Phenergan with Codeine) 5 ml Q6H PRN ORAL For Cough 10/07/16 13:00 11/06/16 12:59 10/07/16 13:30 Sennosides (Senokot) 8.6 mg BID ORAL 10/05/16 18:00 11/04/16 17:59 10/07/16 08:41 Tamsulosin HCl (Flomax) 0.4 mg BEDTIME ORAL 10/04/16 21:00 11/03/16 20:59 10/06/16 21:54 Allergies: Coded Allergies: No Known Allergies (Unverified , 09/29/16) ROS Limited/Unobtainable: No Constitutional: Reports: no symptoms HEENT: Reports: no symptoms Cardiovascular: Reports: no symptoms Respiratory: Reports: no symptoms Gastrointestinal/Abdominal: Reports: no symptoms Genitourinary: Reports: no symptoms Neurologic/Psychiatric: Reports: no symptoms Subjective 75 YO M admitted with epigastric pain, S/P cholecystectomy 10/03/16. Cover for Int Juan Diego-Dr Wood. Toleration clear liq diet. Objective Last Vital Signs Date Time Temp Pulse Resp B/P Pulse Ox O2 Delivery O2 Flow Rate FiO2 10/07/16 12:00 97.9 107 18 160/81 93 Room Air 10/07/16 08:00 3.0 10/05/16 20:00 98 Laboratory Tests Test 10/07/16 06:10 White Blood Count 11.0 K/UL (4.8-10.8) H Red Blood Count 3.41 M/UL (4.70-6.10) L Hemoglobin 10.4 G/DL (14.2-18.0) L Hematocrit 30.4 % (42.0-52.0) L Mean Corpuscular Volume 89 FL (80-99) Mean Corpuscular Hemoglobin 30.6 PG (27.0-31.0) Mean Corpuscular Hemoglobin Concent 34.4 G/DL (32.0-36.0) Red Cell Distribution Width 12.4 % (11.6-14.8) Platelet Count 315 K/UL (150-450) Mean Platelet Volume 6.6 FL (6.5-10.1) Neutrophils (%) (Auto) 83.8 % (45.0-75.0) H Lymphocytes (%) (Auto) 7.5 % (20.0-45.0) L Monocytes (%) (Auto) 6.9 % (1.0-10.0) Eosinophils (%) (Auto) 1.3 % (0.0-3.0) Basophils (%) (Auto) 0.5 % (0.0-2.0) Sodium Level 132 mEQ/L (135-145) L Potassium Level 3.5 mEQ/L (3.4-4.9) Chloride Level 93 mEQ/L (98-107) L Carbon Dioxide Level 25 mEQ/L (20-30) Anion Gap 14 (5-15) Blood Urea Nitrogen 4 mg/dL (7-23) L Creatinine 0.6 mg/dL (0.7-1.2) L Estimat Glomerular Filtration Rate mL/min (>60) Glucose Level 197 mg/dL (74-106) H Calcium Level 8.4 mg/dL (8.6-10.2) L Phosphorus Level 2.5 mg/dL (2.5-4.8) Magnesium Level 1.5 mg/dL (1.7-2.5) L Intake and Output 10/06/16 10/07/16 19:00 07:00 Intake Total 1135.0 ml 829.0 ml Output Total 470 ml 1320 ml Balance 665.0 ml -491.0 ml Intake Oral 240 ml IV Total 895.0 ml 829.0 ml Output Urine Total 400 ml 1050 ml Drainage Total 70 ml 270 ml Objective General Appearance: WD/WN, alert, mild distress EENT: PERRL/EOMI, normal ENT inspection Neck: non-tender, normal alignment, supple Cardiovascular: normal peripheral pulses, normal rate, regular rhythm, no gallop/murmur, no JVD Respiratory/Chest: chest wall non-tender, lungs clear, normal breath sounds, no respiratory distress, no accessory muscle use Abdomen: decreased bowel sounds, distended, guarding, tender Extremities: normal range of motion Neurologic: stone splitter II-XII grossly normal Skin: normal pigmentation, warm/dry Assessment/Plan Problem List: (1) HTN (hypertension) (2) Diabetes mellitus Assessment & Plan: Cont novolog sliding scale. (3) CAD (coronary artery disease) (4) Hypercholesteremia Assessment & Plan: Cont pravachol (5) Epigastric abdominal pain (6) Choledocholithiasis Assessment & Plan: See GI and surgery note. Await ERCP on 10/02/16; S/P open cholecystectomy 10/03/16. (7) Chest pain Assessment & Plan: Due to cholecystitis. Troponin neg (8) Cholecystitis Assessment & Plan: S/P open cholecystectomy 10/03/16. (9) LFTs abnormal Status: progressing, tolerating diet REJI SALAZAR Oct 07, 2016 17:16
[2016-10-07 20:00] VITALS: BP 157/88
[2016-10-07] MEDS: Tamsulosin 0.4mg cap ORAL SCH (22:47)
[2016-10-07] MEDS: Hydromorphone 0.5mg/0.5ml inj IVP PRN (22:49)
[2016-10-08] VITALS: BP 138/75
[2016-10-08] MEDS: HYDROmorphone 1mg/ml Carpuject IVP PRN ×5 (01:39→17:48)
[2016-10-08 04:00] VITALS: BP 136/82
[2016-10-08] MEDS: NovoLOG Insulin Flexpen SUBQ SCH ×4 (06:11→20:43)
[2016-10-08 06:48] LABS: BASOPHILS % (AUTO) 0.6 % (0.0-2.0); EOSINOPHILS % (AUTO) 1.5 % (0.0-3.0); LYMPHOCYTES % (AUTO) 14.7 % (20.0-45.0); MEAN CORPUSCULAR HEMOGLOBIN 30.8 PG (27.0-31.0); MEAN CORPUSCULAR HGB CONC 34.4 G/DL (32.0-36.0); MEAN CORPUSCULAR VOLUME 90 FL (80-99); MEAN PLATELET VOLUME 6.3 FL (6.5-10.1); MONOCYTES % (AUTO) 6.7 % (1.0-10.0); NEUTROPHILS % (AUTO) 76.4 % (45.0-75.0); PLATELET COUNT 344 K/UL (150-450); RED BLOOD COUNT 3.37 M/UL (4.70-6.10); RED CELL DISTRIBUTION WIDTH 12.6 % (11.6-14.8); WHITE BLOOD COUNT 10.5 K/UL (4.8-10.8)
[2016-10-08 07:54] LABS: ANION GAP 15 (5-15); CALCIUM 8.1 mg/dL (8.6-10.2); CARBON DIOXIDE 24 mEQ/L (20-30); CHLORIDE 93 mEQ/L (98-107); CREATININE 0.7 mg/dL (0.7-1.2); HEMOLYSIS 2; POTASSIUM 3.3 mEQ/L (3.4-4.9); SODIUM 132 mEQ/L (135-145)
[2016-10-08 08:00] VITALS: BP 123/74
[2016-10-08] MEDS: Docusate 100mg cap ORAL SCH (08:07)
[2016-10-08] MEDS: Aspirin Baby 81mg ORAL SCH (08:07)
[2016-10-08] MEDS: Hydromorphone 0.5mg/0.5ml inj IVP PRN (08:07)
[2016-10-08] MEDS: Heparin 5000 units/ml inj SUBQ SCH ×2 (08:12→20:42)
--- NOTE | 2016-10-08 10:15 | Urology Progress Note ---
Assessment/Plan Assessment/Plan 1. Urinary retention. 2. Benign prostatic hypertrophy. 3. Probable neurogenic bladder. 4. Hematuria. 5. Pyuria. 6. Proteinuria. 7. Renal cyst. 8. Adrenal adenoma. 9. Urethral stricture. novak out and voiding cont flomax and proscar monitor PVR and reinsert novak PRN renal fxn stable Subjective Allergies: Coded Allergies: No Known Allergies (Unverified , 09/29/16) Subjective all noted, feels fair, novak out and voiding, PVR 15 cc per nurse report Objective Last 24 Hour Vital Signs Date Time Temp Pulse Resp B/P Pulse Ox O2 Delivery O2 Flow Rate FiO2 10/08/16 08:07 99 123/74 10/08/16 08:00 104 10/08/16 08:00 98.2 99 24 123/74 96 Room Air 10/08/16 04:00 100 10/08/16 04:00 98.2 98 20 136/82 97 Room Air 10/08/16 00:00 103 10/08/16 00:00 97.9 102 20 138/75 97 Room Air 10/07/16 23:19 98.2 10/07/16 20:00 98.2 108 18 157/88 97 Room Air 10/07/16 19:48 108 10/07/16 19:21 98.2 10/07/16 16:00 98.2 116 18 138/84 94 Room Air 10/07/16 16:00 108 10/07/16 12:00 97.9 107 18 160/81 93 Room Air 10/07/16 12:00 108 Intake and Output 10/07/16 10/08/16 19:00 07:00 Intake Total 1680 ml 1060 ml Output Total 270 ml 520 ml Balance 1410 ml 540 ml Intake Oral 960 ml 400 ml IV Total 720 ml 660 ml Output Urine Total 200 ml 300 ml Drainage Total 70 ml 220 ml # Voids 2 # Bowel Movements 2 Microbiology Date/Time Source Procedure Growth Status 09/29/16 09:15 Blood Blood Culture - Final Strep Species, Alpha Hemolytic Complete Current Medications Medications (Trade) Dose Ordered Sig/Madina Route PRN Reason Start Time Stop Time Status Last Admin Dose Admin Acetaminophen (Tylenol) 500 mg EVERY 6 HOURS PRN ORAL Mild Pain/Temp > 100.5 09/29/16 13:15 10/29/16 13:14 10/06/16 19:59 Amlodipine Besylate (Norvasc) 5 mg DAILY ORAL 10/04/16 21:00 11/03/16 20:59 10/08/16 08:07 Aspirin (ASA) 81 mg DAILY ORAL 09/30/16 09:00 10/30/16 08:59 10/08/16 08:07 Clonidine HCl (Catapres) 0.1 mg Q6H PRN ORAL For High Blood Pressure 10/04/16 20:15 11/03/16 20:14 Dextrose (Dextrose 50%) STAT PRN IV Hypoglycemia 09/29/16 13:15 10/29/16 13:14 Dextrose/ Electrolytes (D5 0.45%NS W/ KCl 20mEq) 1,000 ml @ 60 mls/hr [id number] IV 10/06/16 10:30 11/05/16 10:29 10/07/16 22:58 Docusate Sodium 100 mg 100 mg DAILY ORAL 10/06/16 09:00 11/05/16 08:59 10/08/16 08:07 Finasteride (Proscar) 5 mg DAILY ORAL 10/04/16 13:00 11/03/16 12:59 10/08/16 08:07 Heparin Sodium (Porcine) (Heparin 5000 units/ml) 5,000 units EVERY 12 HOURS SUBQ 09/29/16 21:00 10/29/16 20:59 10/08/16 08:12 Hydromorphone HCl (Dilaudid) 0.5 mg Q3H PRN IVP Pain Score 1-3 10/03/16 15:30 10/10/16 15:29 10/08/16 08:07 Hydromorphone HCl (Dilaudid) 1 mg Q3H PRN IVP pain score 4-6 10/03/16 15:30 10/10/16 15:29 10/08/16 06:22 Insulin Aspart (NovoLOG) BEFORE MEALS AND HS SUBQ 09/29/16 16:30 10/29/16 16:29 10/08/16 06:11 Ondansetron HCl (Zofran) 4 mg Q6H PRN IVP Nausea & Vomiting 10/03/16 15:30 11/02/16 15:29 Pantoprazole (Protonix) 40 mg DAILY ORAL 09/30/16 09:00 10/30/16 08:59 10/08/16 08:08 Pravastatin Sodium (Pravachol) 20 mg BEDTIME ORAL 09/29/16 21:00 10/29/16 20:59 10/07/16 22:47 Promethazine HCl/ Codeine (Phenergan with Codeine) 5 ml Q6H PRN ORAL For Cough 10/07/16 13:00 11/06/16 12:59 10/07/16 22:47 Sennosides (Senokot) 8.6 mg BID ORAL 10/05/16 18:00 11/04/16 17:59 10/08/16 08:07 Tamsulosin HCl (Flomax) 0.4 mg BEDTIME ORAL 10/04/16 21:00 11/03/16 20:59 10/07/16 22:47 Laboratory Tests 10/08/16 04:50: White Blood Count 10.5, Red Blood Count 3.37L, Hemoglobin 10.4L, Hematocrit 30.2L, Mean Corpuscular Volume 90, Mean Corpuscular Hemoglobin 30.8, Mean Corpuscular Hemoglobin Concent 34.4, Red Cell Distribution Width 12.6, Platelet Count 344, Mean Platelet Volume 6.3L, Neutrophils (%) (Auto) 76.4H, Lymphocytes (%) (Auto) 14.7L, Monocytes (%) (Auto) 6.7, Eosinophils (%) (Auto) 1.5, Basophils (%) (Auto) 0.6, Sodium Level 132L, Potassium Level 3.3L, Chloride Level 93L, Carbon Dioxide Level 24, Anion Gap 15, Blood Urea Nitrogen 5L, Creatinine 0.7, Estimat Glomerular Filtration Rate , Glucose Level 154H, Calcium Level 8.1L Height (Feet): 5 Height (Inches): 7.00 Weight (Pounds): 152 Objective exam stable LEX RUIZ Oct 08, 2016 10:15
[2016-10-08] MEDS: Promethazine/Codeine 5ml UD ORAL PRN (10:28)
--- NOTE | 2016-10-08 11:13 | General Surgery Progress Note ---
General Surgery-Progress Note Subjective Procedure Performed laparoscopy, open cholecystectomy Chief Complaint: still distended, but less so; some flatus, 2 BMs Symptoms: improved Additional Comments abdominal xrays pending Objective Last 24 Hour Vital Signs Date Time Temp Pulse Resp B/P Pulse Ox O2 Delivery O2 Flow Rate FiO2 10/08/16 08:07 99 123/74 10/08/16 08:00 104 10/08/16 08:00 98.2 99 24 123/74 96 Room Air 10/08/16 04:00 100 10/08/16 04:00 98.2 98 20 136/82 97 Room Air 10/08/16 00:00 103 10/08/16 00:00 97.9 102 20 138/75 97 Room Air 10/07/16 23:19 98.2 10/07/16 20:00 98.2 108 18 157/88 97 Room Air 10/07/16 19:48 108 10/07/16 19:21 98.2 10/07/16 16:00 98.2 116 18 138/84 94 Room Air 10/07/16 16:00 108 10/07/16 12:00 97.9 107 18 160/81 93 Room Air 10/07/16 12:00 108 I&O Intake and Output 10/07/16 10/08/16 19:00 07:00 Intake Total 1680 ml 1060 ml Output Total 270 ml 520 ml Balance 1410 ml 540 ml Intake Oral 960 ml 400 ml IV Total 720 ml 660 ml Output Urine Total 200 ml 300 ml Drainage Total 70 ml 220 ml # Voids 2 # Bowel Movements 2 Wound: clean Drains: christie - in place, 120 cc serosanguinous fluid out last 1-2 shifts, none bilous. Cardiovascular: RSR Respiratory: clear Abdomen: soft, distended - , but les than yesterday Extremities: no edema Laboratory Tests Test 10/08/16 04:50 White Blood Count 10.5 K/UL (4.8-10.8) Red Blood Count 3.37 M/UL (4.70-6.10) L Hemoglobin 10.4 G/DL (14.2-18.0) L Hematocrit 30.2 % (42.0-52.0) L Mean Corpuscular Volume 90 FL (80-99) Mean Corpuscular Hemoglobin 30.8 PG (27.0-31.0) Mean Corpuscular Hemoglobin Concent 34.4 G/DL (32.0-36.0) Red Cell Distribution Width 12.6 % (11.6-14.8) Platelet Count 344 K/UL (150-450) Mean Platelet Volume 6.3 FL (6.5-10.1) L Neutrophils (%) (Auto) 76.4 % (45.0-75.0) H Lymphocytes (%) (Auto) 14.7 % (20.0-45.0) L Monocytes (%) (Auto) 6.7 % (1.0-10.0) Eosinophils (%) (Auto) 1.5 % (0.0-3.0) Basophils (%) (Auto) 0.6 % (0.0-2.0) Sodium Level 132 mEQ/L (135-145) L Potassium Level 3.3 mEQ/L (3.4-4.9) L Chloride Level 93 mEQ/L (98-107) L Carbon Dioxide Level 24 mEQ/L (20-30) Anion Gap 15 (5-15) Blood Urea Nitrogen 5 mg/dL (7-23) L Creatinine 0.7 mg/dL (0.7-1.2) Estimat Glomerular Filtration Rate mL/min (>60) Glucose Level 154 mg/dL (74-106) H Calcium Level 8.1 mg/dL (8.6-10.2) L Imaging Abd xrays being done at this time Additional Comments Stable s/p open cholecystectomy, ileus clinically improving, still significant drainage but not bilous Assessment Additional Comments If x rays OK, will advance diet AXEL Rodriguez Oct 08, 2016 11:13
--- NOTE | 2016-10-08 11:42 | Diagnostic Imaging Report ---
Clinical history: Abdominal distention. Status post cholecystectomy. Technique: Single frontal abdominal radiograph was obtained. Comparisons: None Findings: Cutaneous clips are noted in the right upper abdomen. Postcholecystectomy clips are noted. There is a surgical drain in place, with the tip in the region of the gallbladder fossa. Moderately distended small and large bowel loops are identified. Air is present in the rectosigmoid region. Constellation of findings likely reflect postoperative ileus. Partial small bowel obstruction is not excluded. IMPRESSION: Status post open cholecystectomy with moderate air distention of several small and large bowel loops compatible with postsurgical ileus. Partial small bowel obstruction is not excluded and continued surveillance is recommended.
[2016-10-08 12:00] VITALS: BP 132/68
[2016-10-08] MEDS: D5 1/2NS w/KCl 20mEq 1,000 ML IV SCH (12:00)
[2016-10-08 16:00] VITALS: BP 144/89
--- NOTE | 2016-10-08 17:03 | Infectious Diseases Prog Note ---
Assessment/Plan Assessment/Plan ASSESSMENT: 75-year-old male with: cholangitis vs cholecystitis SP Rx SP laparoscopic conversion to open cholecystectomy 10/02 SP Status post endoscopic retrograde cholangiopancreatography sphincterotomy and stone removal Fever - recurrent low grade x1 resolved Bcx: Alpha-Strp SP Rx TTE(-) veg leukocytosis - resolved Ur Obst , SP Rosas, removed 10/07 CAD Diabetes NKDA Full Code PLAN: monitor pt off of AB Rx ( 10/06 SP IV Zosyn d# 7 ) ( 10/04 SP Zyvox s# 3 ) Monitor CBC, temperatures, re-culture if acute change Monitor CMP Subjective Allergies: Coded Allergies: No Known Allergies (Unverified , 09/29/16) Subjective low grade fever x1 resolved. comfortable Objective Vital Signs Last 24 Hour Vital Signs Date Time Temp Pulse Resp B/P Pulse Ox O2 Delivery O2 Flow Rate FiO2 10/08/16 12:57 100 10/08/16 12:00 98.6 99 17 132/68 94 Room Air 10/08/16 08:07 99 123/74 10/08/16 08:00 104 10/08/16 08:00 98.2 99 24 123/74 96 Room Air 10/08/16 04:00 100 10/08/16 04:00 98.2 98 20 136/82 97 Room Air 10/08/16 00:00 103 10/08/16 00:00 97.9 102 20 138/75 97 Room Air 10/07/16 23:19 98.2 10/07/16 20:00 98.2 108 18 157/88 97 Room Air 10/07/16 19:48 108 10/07/16 19:21 98.2 Height (Feet): 5 Height (Inches): 7.00 Weight (Pounds): 152 General Appearance: no acute distress Respiratory/Chest: no respiratory distress Cardiovascular: normal rate, regular rhythm Abdomen: normal bowel sounds, soft, non tender, non distended Laboratory Tests Test 10/08/16 04:50 White Blood Count 10.5 K/UL (4.8-10.8) Red Blood Count 3.37 M/UL (4.70-6.10) L Hemoglobin 10.4 G/DL (14.2-18.0) L Hematocrit 30.2 % (42.0-52.0) L Mean Corpuscular Volume 90 FL (80-99) Mean Corpuscular Hemoglobin 30.8 PG (27.0-31.0) Mean Corpuscular Hemoglobin Concent 34.4 G/DL (32.0-36.0) Red Cell Distribution Width 12.6 % (11.6-14.8) Platelet Count 344 K/UL (150-450) Mean Platelet Volume 6.3 FL (6.5-10.1) L Neutrophils (%) (Auto) 76.4 % (45.0-75.0) H Lymphocytes (%) (Auto) 14.7 % (20.0-45.0) L Monocytes (%) (Auto) 6.7 % (1.0-10.0) Eosinophils (%) (Auto) 1.5 % (0.0-3.0) Basophils (%) (Auto) 0.6 % (0.0-2.0) Sodium Level 132 mEQ/L (135-145) L Potassium Level 3.3 mEQ/L (3.4-4.9) L Chloride Level 93 mEQ/L (98-107) L Carbon Dioxide Level 24 mEQ/L (20-30) Anion Gap 15 (5-15) Blood Urea Nitrogen 5 mg/dL (7-23) L Creatinine 0.7 mg/dL (0.7-1.2) Estimat Glomerular Filtration Rate mL/min (>60) Glucose Level 154 mg/dL (74-106) H Calcium Level 8.1 mg/dL (8.6-10.2) L Current Medications Medications (Trade) Dose Ordered Sig/Madina Route PRN Reason Start Time Stop Time Status Last Admin Dose Admin Acetaminophen (Tylenol) 500 mg EVERY 6 HOURS PRN ORAL Mild Pain/Temp > 100.5 09/29/16 13:15 10/29/16 13:14 10/06/16 19:59 Amlodipine Besylate (Norvasc) 5 mg DAILY ORAL 10/04/16 21:00 11/03/16 20:59 10/08/16 08:07 Aspirin (ASA) 81 mg DAILY ORAL 09/30/16 09:00 10/30/16 08:59 10/08/16 08:07 Clonidine HCl (Catapres) 0.1 mg Q6H PRN ORAL For High Blood Pressure 10/04/16 20:15 11/03/16 20:14 Dextrose (Dextrose 50%) STAT PRN IV Hypoglycemia 09/29/16 13:15 10/29/16 13:14 Dextrose/ Electrolytes (D5 0.45%NS W/ KCl 20mEq) 1,000 ml @ 60 mls/hr [id number] IV 10/06/16 10:30 11/05/16 10:29 10/08/16 12:00 Docusate Sodium 100 mg 100 mg DAILY ORAL 10/06/16 09:00 11/05/16 08:59 10/08/16 08:07 Finasteride (Proscar) 5 mg DAILY ORAL 10/04/16 13:00 11/03/16 12:59 10/08/16 08:07 Heparin Sodium (Porcine) (Heparin 5000 units/ml) 5,000 units EVERY 12 HOURS SUBQ 09/29/16 21:00 10/29/16 20:59 10/08/16 08:12 Hydromorphone HCl (Dilaudid) 0.5 mg Q3H PRN IVP Pain Score 1-3 10/03/16 15:30 10/10/16 15:29 10/08/16 08:07 Hydromorphone HCl (Dilaudid) 1 mg Q3H PRN IVP pain score 4-6 10/03/16 15:30 10/10/16 15:29 10/08/16 13:30 Insulin Aspart (NovoLOG) BEFORE MEALS AND HS SUBQ 09/29/16 16:30 10/29/16 16:29 10/08/16 15:54 Ondansetron HCl (Zofran) 4 mg Q6H PRN IVP Nausea & Vomiting 10/03/16 15:30 11/02/16 15:29 Pantoprazole (Protonix) 40 mg DAILY ORAL 09/30/16 09:00 10/30/16 08:59 10/08/16 08:08 Pravastatin Sodium (Pravachol) 20 mg BEDTIME ORAL 09/29/16 21:00 10/29/16 20:59 10/07/16 22:47 Promethazine HCl/ Codeine (Phenergan with Codeine) 5 ml Q6H PRN ORAL For Cough 10/07/16 13:00 11/06/16 12:59 10/08/16 10:28 Sennosides (Senokot) 8.6 mg BID ORAL 10/05/16 18:00 11/04/16 17:59 10/08/16 08:07 Tamsulosin HCl (Flomax) 0.4 mg BEDTIME ORAL 10/04/16 21:00 11/03/16 20:59 10/07/16 22:47 OZZIE FORTE Oct 08, 2016 17:03
--- NOTE | 2016-10-08 18:55 | Internal Med Progress Note ---
Subjective Date of Service: Oct 08, 2016 Physician Name Reji Salazar Attending Physician Charles Wood MD Current Medications Medications (Trade) Dose Ordered Sig/Madina Route PRN Reason Start Time Stop Time Status Last Admin Dose Admin Acetaminophen (Tylenol) 500 mg EVERY 6 HOURS PRN ORAL Mild Pain/Temp > 100.5 09/29/16 13:15 10/29/16 13:14 10/06/16 19:59 Amlodipine Besylate (Norvasc) 5 mg DAILY ORAL 10/04/16 21:00 11/03/16 20:59 10/08/16 08:07 Aspirin (ASA) 81 mg DAILY ORAL 09/30/16 09:00 10/30/16 08:59 10/08/16 08:07 Clonidine HCl (Catapres) 0.1 mg Q6H PRN ORAL For High Blood Pressure 10/04/16 20:15 11/03/16 20:14 Dextrose (Dextrose 50%) STAT PRN IV Hypoglycemia 09/29/16 13:15 10/29/16 13:14 Dextrose/ Electrolytes (D5 0.45%NS W/ KCl 20mEq) 1,000 ml @ 60 mls/hr [id number] IV 10/06/16 10:30 11/05/16 10:29 10/08/16 12:00 Docusate Sodium 100 mg 100 mg DAILY ORAL 10/06/16 09:00 11/05/16 08:59 10/08/16 08:07 Finasteride (Proscar) 5 mg DAILY ORAL 10/04/16 13:00 11/03/16 12:59 10/08/16 08:07 Heparin Sodium (Porcine) (Heparin 5000 units/ml) 5,000 units EVERY 12 HOURS SUBQ 09/29/16 21:00 10/29/16 20:59 10/08/16 08:12 Hydromorphone HCl (Dilaudid) 0.5 mg Q3H PRN IVP Pain Score 1-3 10/03/16 15:30 10/10/16 15:29 10/08/16 08:07 Hydromorphone HCl (Dilaudid) 1 mg Q3H PRN IVP pain score 4-6 10/03/16 15:30 10/10/16 15:29 10/08/16 17:48 Insulin Aspart (NovoLOG) BEFORE MEALS AND HS SUBQ 09/29/16 16:30 10/29/16 16:29 10/08/16 15:54 Ondansetron HCl (Zofran) 4 mg Q6H PRN IVP Nausea & Vomiting 10/03/16 15:30 11/02/16 15:29 Pantoprazole (Protonix) 40 mg DAILY ORAL 09/30/16 09:00 10/30/16 08:59 10/08/16 08:08 Pravastatin Sodium (Pravachol) 20 mg BEDTIME ORAL 09/29/16 21:00 10/29/16 20:59 10/07/16 22:47 Promethazine HCl/ Codeine (Phenergan with Codeine) 5 ml Q6H PRN ORAL For Cough 10/07/16 13:00 11/06/16 12:59 10/08/16 10:28 Sennosides (Senokot) 8.6 mg BID ORAL 10/05/16 18:00 11/04/16 17:59 10/08/16 17:48 Tamsulosin HCl (Flomax) 0.4 mg BEDTIME ORAL 10/04/16 21:00 11/03/16 20:59 10/07/16 22:47 Allergies: Coded Allergies: No Known Allergies (Unverified , 09/29/16) ROS Limited/Unobtainable: No Constitutional: Reports: no symptoms HEENT: Reports: no symptoms Cardiovascular: Reports: no symptoms Respiratory: Reports: no symptoms Gastrointestinal/Abdominal: Reports: abdominal pain Genitourinary: Reports: no symptoms Neurologic/Psychiatric: Reports: no symptoms Subjective 75 YO M admitted with epigastric pain, S/P cholecystectomy 10/03/16. Cover for Int Juan Diego-Dr Wood. Objective Last Vital Signs Date Time Temp Pulse Resp B/P Pulse Ox O2 Delivery O2 Flow Rate FiO2 10/08/16 16:00 96.0 104 20 144/89 96 Room Air 10/07/16 08:00 3.0 10/05/16 20:00 98 Laboratory Tests Test 10/08/16 04:50 White Blood Count 10.5 K/UL (4.8-10.8) Red Blood Count 3.37 M/UL (4.70-6.10) L Hemoglobin 10.4 G/DL (14.2-18.0) L Hematocrit 30.2 % (42.0-52.0) L Mean Corpuscular Volume 90 FL (80-99) Mean Corpuscular Hemoglobin 30.8 PG (27.0-31.0) Mean Corpuscular Hemoglobin Concent 34.4 G/DL (32.0-36.0) Red Cell Distribution Width 12.6 % (11.6-14.8) Platelet Count 344 K/UL (150-450) Mean Platelet Volume 6.3 FL (6.5-10.1) L Neutrophils (%) (Auto) 76.4 % (45.0-75.0) H Lymphocytes (%) (Auto) 14.7 % (20.0-45.0) L Monocytes (%) (Auto) 6.7 % (1.0-10.0) Eosinophils (%) (Auto) 1.5 % (0.0-3.0) Basophils (%) (Auto) 0.6 % (0.0-2.0) Sodium Level 132 mEQ/L (135-145) L Potassium Level 3.3 mEQ/L (3.4-4.9) L Chloride Level 93 mEQ/L (98-107) L Carbon Dioxide Level 24 mEQ/L (20-30) Anion Gap 15 (5-15) Blood Urea Nitrogen 5 mg/dL (7-23) L Creatinine 0.7 mg/dL (0.7-1.2) Estimat Glomerular Filtration Rate mL/min (>60) Glucose Level 154 mg/dL (74-106) H Calcium Level 8.1 mg/dL (8.6-10.2) L Intake and Output 10/07/16 10/08/16 19:00 07:00 Intake Total 1680 ml 1060 ml Output Total 270 ml 520 ml Balance 1410 ml 540 ml Intake Oral 960 ml 400 ml IV Total 720 ml 660 ml Output Urine Total 200 ml 300 ml Drainage Total 70 ml 220 ml # Voids 2 # Bowel Movements 2 Objective General Appearance: WD/WN, alert, mild distress EENT: PERRL/EOMI, normal ENT inspection Neck: non-tender, normal alignment, supple Cardiovascular: normal peripheral pulses, normal rate, regular rhythm, no gallop/murmur, no JVD Respiratory/Chest: chest wall non-tender, lungs clear, normal breath sounds, no respiratory distress, no accessory muscle use Abdomen: decreased bowel sounds, distended, guarding, tender Extremities: normal range of motion 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 (3) CAD (coronary artery disease) (4) Hypercholesteremia Assessment & Plan: Cont pravachol (5) Epigastric abdominal pain (6) Choledocholithiasis Assessment & Plan: See GI and surgery note. Await ERCP on 10/02/16; S/P open cholecystectomy 10/03/16. (7) Chest pain Assessment & Plan: Due to cholecystitis. Troponin neg (8) Cholecystitis Assessment & Plan: S/P open cholecystectomy 10/03/16. (9) LFTs abnormal Status: progressing REJI SALAZAR Oct 08, 2016 18:55
[2016-10-08 20:00] VITALS: BP 148/77
[2016-10-08] MEDS: Tamsulosin 0.4mg cap ORAL SCH (20:39)
[2016-10-09] VITALS: BP 104/68
[2016-10-09 04:00] VITALS: BP 132/72
[2016-10-09] MEDS: D5 1/2NS w/KCl 20mEq 1,000 ML IV SCH ×2 (05:43→21:24)
[2016-10-09] MEDS: NovoLOG Insulin Flexpen SUBQ SCH ×4 (05:45→21:28)
[2016-10-09 07:37] LABS: BASOPHILS % (AUTO) 0.4 % (0.0-2.0); LYMPHOCYTES % (AUTO) 13.5 % (20.0-45.0); MEAN CORPUSCULAR HEMOGLOBIN 31.4 PG (27.0-31.0); MEAN CORPUSCULAR HGB CONC 35.3 G/DL (32.0-36.0); MEAN CORPUSCULAR VOLUME 89 FL (80-99); MEAN PLATELET VOLUME 6.3 FL (6.5-10.1); MONOCYTES % (AUTO) 4.9 % (1.0-10.0); NEUTROPHILS % (AUTO) 80.2 % (45.0-75.0); PLATELET COUNT 361 K/UL (150-450); RED BLOOD COUNT 3.38 M/UL (4.70-6.10); RED CELL DISTRIBUTION WIDTH 12.7 % (11.6-14.8); WHITE BLOOD COUNT 11.6 K/UL (4.8-10.8)
[2016-10-09 07:54] LABS: ANION GAP 17 (5-15); CALCIUM 7.9 mg/dL (8.6-10.2); CARBON DIOXIDE 24 mEQ/L (20-30); CHLORIDE 95 mEQ/L (98-107); CREATININE 0.7 mg/dL (0.7-1.2); HEMOLYSIS 2; SODIUM 136 mEQ/L (135-145)
[2016-10-09 08:03] VITALS: BP 129/76
--- NOTE | 2016-10-09 08:58 | General Progress Note ---
Assessment/Plan Status: stable Assessment/Plan 1- Sever Sepsis: controlled 2-Abn LFT: Improving 3- Cholangitis/ acute cholecystitis 4- Abn BNP 5-UTI 5- Gi-DVT 6. HypoNatremia Plan: status post ERCP status post Open cholecystectomy current management per surgery service Decreased IV fluid New Leukocytosis Subjective ROS Limited/Unobtainable: No Cardiovascular: Reports: no symptoms Respiratory: Reports: no symptoms Gastrointestinal/Abdominal: Reports: abdomen distended Allergies: Coded Allergies: No Known Allergies (Unverified , 09/29/16) Objective Last 24 Hour Vital Signs Date Time Temp Pulse Resp B/P Pulse Ox O2 Delivery O2 Flow Rate FiO2 10/09/16 08:03 98.1 94 20 129/76 97 Room Air 10/09/16 04:00 98.6 101 20 132/72 97 Room Air 10/09/16 04:00 98 10/09/16 00:00 99.0 86 20 104/68 97 Room Air 10/09/16 00:00 114 10/08/16 20:00 98.2 102 18 148/77 100 Room Air 10/08/16 20:00 99 10/08/16 18:18 96.0 10/08/16 16:00 96.0 104 20 144/89 96 Room Air 10/08/16 16:00 100 10/08/16 12:57 100 10/08/16 12:00 98.6 99 17 132/68 94 Room Air Intake and Output 10/08/16 10/09/16 19:00 07:00 Intake Total 419 ml Output Total 15 ml 350 ml Balance 404 ml -350 ml IV Total 419 ml Output Urine Total 50 ml Drainage Total 15 ml 300 ml Laboratory Tests 10/09/16 06:15: White Blood Count 11.6H, Red Blood Count 3.38L, Hemoglobin 10.6L, Hematocrit 30.0L, Mean Corpuscular Volume 89, Mean Corpuscular Hemoglobin 31.4H, Mean Corpuscular Hemoglobin Concent 35.3, Red Cell Distribution Width 12.7, Platelet Count 361, Mean Platelet Volume 6.3L, Neutrophils (%) (Auto) 80.2H, Lymphocytes (%) (Auto) 13.5L, Monocytes (%) (Auto) 4.9, Eosinophils (%) (Auto) 1.0, Basophils (%) (Auto) 0.4, Sodium Level 136, Potassium Level 3.0L, Chloride Level 95L, Carbon Dioxide Level 24, Anion Gap 17H, Blood Urea Nitrogen 7, Creatinine 0.7, Estimat Glomerular Filtration Rate , Glucose Level 150H, Calcium Level 7.9L Height (Feet): 5 Height (Inches): 7.00 Weight (Pounds): 152 General Appearance: WD/WN EENT: PERRL/EOMI Neck: supple Cardiovascular: normal rate Respiratory/Chest: lungs clear Abdomen: soft, distended Extremities: non-tender 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
[2016-10-09] MEDS: HYDROmorphone 1mg/ml Carpuject IVP PRN ×2 (09:16→18:16)
[2016-10-09] MEDS: Docusate 100mg cap ORAL SCH (09:25)
[2016-10-09] MEDS: Aspirin Baby 81mg ORAL SCH (09:25)
--- NOTE | 2016-10-09 09:25 | Urology Progress Note ---
Assessment/Plan Assessment/Plan 1. Urinary retention. 2. Benign prostatic hypertrophy. 3. Probable neurogenic bladder. 4. Hematuria. 5. Pyuria. 6. Proteinuria. 7. Renal cyst. 8. Adrenal adenoma. 9. Urethral stricture. novak out and voiding cont flomax and proscar monitor PVR and reinsert novak PRN renal fxn stable Subjective Allergies: Coded Allergies: No Known Allergies (Unverified , 09/29/16) Subjective all noted, feels fair, voiding, no bladder discomfort Objective Last 24 Hour Vital Signs Date Time Temp Pulse Resp B/P Pulse Ox O2 Delivery O2 Flow Rate FiO2 10/09/16 08:03 98.1 94 20 129/76 97 Room Air 10/09/16 04:00 98.6 101 20 132/72 97 Room Air 10/09/16 04:00 98 10/09/16 00:00 99.0 86 20 104/68 97 Room Air 10/09/16 00:00 114 10/08/16 20:00 98.2 102 18 148/77 100 Room Air 10/08/16 20:00 99 10/08/16 18:18 96.0 10/08/16 16:00 96.0 104 20 144/89 96 Room Air 10/08/16 16:00 100 10/08/16 12:57 100 10/08/16 12:00 98.6 99 17 132/68 94 Room Air Intake and Output 10/08/16 10/09/16 19:00 07:00 Intake Total 419 ml Output Total 15 ml 350 ml Balance 404 ml -350 ml IV Total 419 ml Output Urine Total 50 ml Drainage Total 15 ml 300 ml Microbiology Date/Time Source Procedure Growth Status 09/29/16 09:15 Blood Blood Culture - Final Strep Species, Alpha Hemolytic Complete Current Medications Medications (Trade) Dose Ordered Sig/Madina Route PRN Reason Start Time Stop Time Status Last Admin Dose Admin Acetaminophen (Tylenol) 500 mg EVERY 6 HOURS PRN ORAL Mild Pain/Temp > 100.5 09/29/16 13:15 10/29/16 13:14 10/06/16 19:59 Amlodipine Besylate (Norvasc) 5 mg DAILY ORAL 10/04/16 21:00 11/03/16 20:59 10/08/16 08:07 Aspirin (ASA) 81 mg DAILY ORAL 09/30/16 09:00 10/30/16 08:59 10/08/16 08:07 Clonidine HCl (Catapres) 0.1 mg Q6H PRN ORAL For High Blood Pressure 10/04/16 20:15 11/03/16 20:14 Dextrose (Dextrose 50%) STAT PRN IV Hypoglycemia 09/29/16 13:15 10/29/16 13:14 Dextrose/ Electrolytes (D5 0.45%NS W/ KCl 20mEq) 1,000 ml @ 60 mls/hr [id number] IV 10/06/16 10:30 11/05/16 10:29 10/09/16 05:43 Docusate Sodium 100 mg 100 mg DAILY ORAL 10/06/16 09:00 11/05/16 08:59 10/08/16 08:07 Finasteride (Proscar) 5 mg DAILY ORAL 10/04/16 13:00 11/03/16 12:59 10/08/16 08:07 Heparin Sodium (Porcine) (Heparin 5000 units/ml) 5,000 units EVERY 12 HOURS SUBQ 09/29/16 21:00 10/29/16 20:59 10/08/16 20:42 Hydromorphone HCl (Dilaudid) 0.5 mg Q3H PRN IVP Pain Score 1-3 10/03/16 15:30 10/10/16 15:29 10/08/16 08:07 Hydromorphone HCl (Dilaudid) 1 mg Q3H PRN IVP pain score 4-6 10/03/16 15:30 10/10/16 15:29 10/09/16 09:16 Insulin Aspart (NovoLOG) BEFORE MEALS AND HS SUBQ 09/29/16 16:30 10/29/16 16:29 10/09/16 05:45 Ondansetron HCl (Zofran) 4 mg Q6H PRN IVP Nausea & Vomiting 10/03/16 15:30 11/02/16 15:29 Pantoprazole (Protonix) 40 mg DAILY ORAL 09/30/16 09:00 10/30/16 08:59 10/08/16 08:08 Pravastatin Sodium (Pravachol) 20 mg BEDTIME ORAL 09/29/16 21:00 10/29/16 20:59 10/08/16 20:39 Promethazine HCl/ Codeine (Phenergan with Codeine) 5 ml Q6H PRN ORAL For Cough 10/07/16 13:00 11/06/16 12:59 10/08/16 10:28 Sennosides (Senokot) 8.6 mg BID ORAL 10/05/16 18:00 11/04/16 17:59 10/08/16 17:48 Tamsulosin HCl (Flomax) 0.4 mg BEDTIME ORAL 10/04/16 21:00 11/03/16 20:59 10/08/16 20:39 Laboratory Tests 10/09/16 06:15: White Blood Count 11.6H, Red Blood Count 3.38L, Hemoglobin 10.6L, Hematocrit 30.0L, Mean Corpuscular Volume 89, Mean Corpuscular Hemoglobin 31.4H, Mean Corpuscular Hemoglobin Concent 35.3, Red Cell Distribution Width 12.7, Platelet Count 361, Mean Platelet Volume 6.3L, Neutrophils (%) (Auto) 80.2H, Lymphocytes (%) (Auto) 13.5L, Monocytes (%) (Auto) 4.9, Eosinophils (%) (Auto) 1.0, Basophils (%) (Auto) 0.4, Sodium Level 136, Potassium Level 3.0L, Chloride Level 95L, Carbon Dioxide Level 24, Anion Gap 17H, Blood Urea Nitrogen 7, Creatinine 0.7, Estimat Glomerular Filtration Rate , Glucose Level 150H, Calcium Level 7.9L Height (Feet): 5 Height (Inches): 7.00 Weight (Pounds): 152 Objective exam stable LEX RUIZ Oct 09, 2016 09:25
[2016-10-09] MEDS: Heparin 5000 units/ml inj SUBQ SCH ×2 (09:26→21:29)
--- NOTE | 2016-10-09 10:03 | GI Progress Note ---
Assessment/Plan Problems: (1) Epigastric abdominal pain ICD Codes: R10.13 - Epigastric pain SNOMED: 28648985 (2) Choledocholithiasis ICD Codes: K80.50 - Calculus of bile duct without cholangitis or cholecystitis without obstruction SNOMED: 108697471 (3) LFTs abnormal ICD Codes: R79.89 - Other specified abnormal findings of blood chemistry SNOMED: 071700763 (4) Common bile duct (CBD) obstruction ICD Codes: K83.1 - Obstruction of bile duct SNOMED: 80308132, 34039856 (5) Abdominal pain ICD Codes: R10.9 - Unspecified abdominal pain SNOMED: 19354852 Qualifiers: Qualified Codes: R10.11 - Right upper quadrant pain Status: stable, progressing Status Narrative Discussed with Dr. Jarvis. Assessment/Plan Date of Service: 09/29/16 SURGEON: Wellintgon Jarvis M.D. INDICATION: Choledocholithiasis. SUMMARY FINDINGS: Status post endoscopic retrograde cholangiopancreatography sphincterotomy and stone removal. RECOMMENDATIONS: s/p open chalo diet per surgery pain mgmt fu biopsies repeat LFTs ppi fu labs Subjective Gastrointestinal/Abdominal: Reports: abdominal pain - improved Objective Last 24 Hour Vital Signs Date Time Temp Pulse Resp B/P Pulse Ox O2 Delivery O2 Flow Rate FiO2 10/09/16 09:25 94 129/76 10/09/16 08:03 98.1 94 20 129/76 97 Room Air 10/09/16 04:00 98.6 101 20 132/72 97 Room Air 10/09/16 04:00 98 10/09/16 00:00 99.0 86 20 104/68 97 Room Air 10/09/16 00:00 114 10/08/16 20:00 98.2 102 18 148/77 100 Room Air 10/08/16 20:00 99 10/08/16 18:18 96.0 10/08/16 16:00 96.0 104 20 144/89 96 Room Air 10/08/16 16:00 100 10/08/16 12:57 100 10/08/16 12:00 98.6 99 17 132/68 94 Room Air Intake and Output 10/08/16 10/09/16 19:00 07:00 Intake Total 419 ml Output Total 15 ml 350 ml Balance 404 ml -350 ml IV Total 419 ml Output Urine Total 50 ml Drainage Total 15 ml 300 ml Laboratory Tests Test 10/09/16 06:15 White Blood Count 11.6 K/UL (4.8-10.8) H Red Blood Count 3.38 M/UL (4.70-6.10) L Hemoglobin 10.6 G/DL (14.2-18.0) L Hematocrit 30.0 % (42.0-52.0) L Mean Corpuscular Volume 89 FL (80-99) Mean Corpuscular Hemoglobin 31.4 PG (27.0-31.0) H Mean Corpuscular Hemoglobin Concent 35.3 G/DL (32.0-36.0) Red Cell Distribution Width 12.7 % (11.6-14.8) Platelet Count 361 K/UL (150-450) Mean Platelet Volume 6.3 FL (6.5-10.1) L Neutrophils (%) (Auto) 80.2 % (45.0-75.0) H Lymphocytes (%) (Auto) 13.5 % (20.0-45.0) L Monocytes (%) (Auto) 4.9 % (1.0-10.0) Eosinophils (%) (Auto) 1.0 % (0.0-3.0) Basophils (%) (Auto) 0.4 % (0.0-2.0) Sodium Level 136 mEQ/L (135-145) Potassium Level 3.0 mEQ/L (3.4-4.9) L Chloride Level 95 mEQ/L (98-107) L Carbon Dioxide Level 24 mEQ/L (20-30) Anion Gap 17 (5-15) H Blood Urea Nitrogen 7 mg/dL (7-23) Creatinine 0.7 mg/dL (0.7-1.2) Estimat Glomerular Filtration Rate mL/min (>60) Glucose Level 150 mg/dL (74-106) H Calcium Level 7.9 mg/dL (8.6-10.2) L Height (Feet): 5 Height (Inches): 7.00 Weight (Pounds): 152 General Appearance: no apparent distress, alert Cardiovascular: normal rate, tachycardia Respiratory/Chest: normal breath sounds, no respiratory distress Abdominal Exam: non tender, soft, hypoactive bowel sounds Objective Pre-op Diagnosis: acute cholecystitis, choledocholithiasis Procedure: laparoscopic converted to open cholecystectomy RN report, BM x 3 Sweta Sweeney N.P. Oct 09, 2016 10:03
[2016-10-09 11:40] VITALS: BP 109/68
--- NOTE | 2016-10-09 12:34 | General Progress Note ---
Progress Note Progress Note Patient seen and examined at baseline. no acute events. doing well. pain improved. no n/v/f/c. passing flatus consistently and multiple BM's. abdominal exam improved. afebrile, HD stable, labs stable Abdomen, soft, less distended, less tympanic, less tender, incisions c/d/i ALEKSEY drain with serous output (a little high but likely third spacing fluid) Plan: Full liquids Rx as written MUST ambulate and get out of bed. PT/OT if ileus continues to resolve can consider d/c by the end of this week hopefully. Pedrito Millan Oct 09, 2016 12:33
--- NOTE | 2016-10-09 13:52 | Infectious Diseases Prog Note ---
Assessment/Plan Assessment/Plan ASSESSMENT: 75-year-old male with: cholangitis vs cholecystitis SP Rx SP laparoscopic conversion to open cholecystectomy 10/02 SP Status post endoscopic retrograde cholangiopancreatography sphincterotomy and stone removal Fever - resolved Bcx: Alpha-Strp SP Rx TTE(-) veg leukocytosis - recurrent, mild Ur Obst , SP Rosas CAD Diabetes NKDA Full Code PLAN: monitor pt off of AB Rx for now ( 2/ SP IV Zosyn d# 7 ) ( 2/ SP Zyvox s# 3 ) Monitor CBC, temperatures, re-culture if recurrent fever or worsening leukocytois Monitor CMP Subjective Allergies: Coded Allergies: No Known Allergies (Unverified , 09/29/16) Subjective remains afebrile. recurrent mild leukocytosis. no new localizing s/sx infection Objective Vital Signs Last 24 Hour Vital Signs Date Time Temp Pulse Resp B/P Pulse Ox O2 Delivery O2 Flow Rate FiO2 10/09/16 11:40 97.2 103 20 109/68 97 Room Air 10/09/16 09:25 94 129/76 10/09/16 08:03 98.1 94 20 129/76 97 Room Air 10/09/16 08:00 103 10/09/16 04:00 98.6 101 20 132/72 97 Room Air 10/09/16 04:00 98 10/09/16 00:00 99.0 86 20 104/68 97 Room Air 10/09/16 00:00 114 10/08/16 20:00 98.2 102 18 148/77 100 Room Air 10/08/16 20:00 99 10/08/16 18:18 96.0 10/08/16 16:00 96.0 104 20 144/89 96 Room Air 10/08/16 16:00 100 Height (Feet): 5 Height (Inches): 7.00 Weight (Pounds): 152 General Appearance: no acute distress Respiratory/Chest: no respiratory distress Cardiovascular: normal rate, regular rhythm Abdomen: normal bowel sounds, soft, non tender Laboratory Tests Test 10/09/16 06:15 White Blood Count 11.6 K/UL (4.8-10.8) H Red Blood Count 3.38 M/UL (4.70-6.10) L Hemoglobin 10.6 G/DL (14.2-18.0) L Hematocrit 30.0 % (42.0-52.0) L Mean Corpuscular Volume 89 FL (80-99) Mean Corpuscular Hemoglobin 31.4 PG (27.0-31.0) H Mean Corpuscular Hemoglobin Concent 35.3 G/DL (32.0-36.0) Red Cell Distribution Width 12.7 % (11.6-14.8) Platelet Count 361 K/UL (150-450) Mean Platelet Volume 6.3 FL (6.5-10.1) L Neutrophils (%) (Auto) 80.2 % (45.0-75.0) H Lymphocytes (%) (Auto) 13.5 % (20.0-45.0) L Monocytes (%) (Auto) 4.9 % (1.0-10.0) Eosinophils (%) (Auto) 1.0 % (0.0-3.0) Basophils (%) (Auto) 0.4 % (0.0-2.0) Sodium Level 136 mEQ/L (135-145) Potassium Level 3.0 mEQ/L (3.4-4.9) L Chloride Level 95 mEQ/L (98-107) L Carbon Dioxide Level 24 mEQ/L (20-30) Anion Gap 17 (5-15) H Blood Urea Nitrogen 7 mg/dL (7-23) Creatinine 0.7 mg/dL (0.7-1.2) Estimat Glomerular Filtration Rate mL/min (>60) Glucose Level 150 mg/dL (74-106) H Calcium Level 7.9 mg/dL (8.6-10.2) L Current Medications Medications (Trade) Dose Ordered Sig/Madina Route PRN Reason Start Time Stop Time Status Last Admin Dose Admin Acetaminophen (Tylenol) 500 mg EVERY 6 HOURS PRN ORAL Mild Pain/Temp > 100.5 09/29/16 13:15 10/29/16 13:14 10/06/16 19:59 Amlodipine Besylate (Norvasc) 5 mg DAILY ORAL 10/04/16 21:00 11/03/16 20:59 10/09/16 09:25 Aspirin (ASA) 81 mg DAILY ORAL 09/30/16 09:00 10/30/16 08:59 10/09/16 09:25 Clonidine HCl (Catapres) 0.1 mg Q6H PRN ORAL For High Blood Pressure 10/04/16 20:15 11/03/16 20:14 Dextrose (Dextrose 50%) STAT PRN IV Hypoglycemia 09/29/16 13:15 10/29/16 13:14 Dextrose/ Electrolytes (D5 0.45%NS W/ KCl 20mEq) 1,000 ml @ 60 mls/hr [id number] IV 10/06/16 10:30 11/05/16 10:29 10/09/16 05:43 Docusate Sodium 100 mg 100 mg DAILY ORAL 10/06/16 09:00 11/05/16 08:59 10/09/16 09:25 Finasteride (Proscar) 5 mg DAILY ORAL 10/04/16 13:00 11/03/16 12:59 10/09/16 09:24 Heparin Sodium (Porcine) (Heparin 5000 units/ml) 5,000 units EVERY 12 HOURS SUBQ 09/29/16 21:00 10/29/16 20:59 10/09/16 09:26 Hydromorphone HCl (Dilaudid) 0.5 mg Q3H PRN IVP Pain Score 1-3 10/03/16 15:30 10/10/16 15:29 10/08/16 08:07 Hydromorphone HCl (Dilaudid) 1 mg Q3H PRN IVP pain score 4-6 10/03/16 15:30 10/10/16 15:29 10/09/16 09:16 Insulin Aspart (NovoLOG) BEFORE MEALS AND HS SUBQ 09/29/16 16:30 10/29/16 16:29 10/09/16 12:39 Ondansetron HCl (Zofran) 4 mg Q6H PRN IVP Nausea & Vomiting 10/03/16 15:30 11/02/16 15:29 Pantoprazole (Protonix) 40 mg DAILY ORAL 09/30/16 09:00 10/30/16 08:59 10/09/16 09:24 Potassium Chloride (K-Dur) 40 meq TWICE A DAY ORAL 10/09/16 11:00 11/08/16 10:59 10/09/16 12:49 Pravastatin Sodium (Pravachol) 20 mg BEDTIME ORAL 09/29/16 21:00 10/29/16 20:59 10/08/16 20:39 Promethazine HCl/ Codeine (Phenergan with Codeine) 5 ml Q6H PRN ORAL For Cough 10/07/16 13:00 11/06/16 12:59 10/08/16 10:28 Sennosides (Senokot) 8.6 mg BID ORAL 10/05/16 18:00 11/04/16 17:59 10/09/16 09:24 Tamsulosin HCl (Flomax) 0.4 mg BEDTIME ORAL 10/04/16 21:00 11/03/16 20:59 10/08/16 20:39 OZZIE FORTE Oct 09, 2016 13:52
[2016-10-09 16:00] VITALS: BP 140/74
[2016-10-09 19:00] VITALS: BP 146/77
[2016-10-09] MEDS: Tamsulosin 0.4mg cap ORAL SCH (21:23)
[2016-10-10] VITALS: BP 126/64
[2016-10-10] MEDS: HYDROmorphone 1mg/ml Carpuject IVP PRN ×3 (03:59→21:35)
[2016-10-10 04:00] VITALS: BP 115/56
[2016-10-10] MEDS: NovoLOG Insulin Flexpen SUBQ SCH ×4 (06:30→20:51)
[2016-10-10 07:08] LABS: BASOPHILS % (AUTO) 0.6 % (0.0-2.0); EOSINOPHILS % (AUTO) 1.4 % (0.0-3.0); LYMPHOCYTES % (AUTO) 15.6 % (20.0-45.0); MEAN CORPUSCULAR HGB CONC 34.4 G/DL (32.0-36.0); MEAN CORPUSCULAR VOLUME 90 FL (80-99); MEAN PLATELET VOLUME 6.4 FL (6.5-10.1); MONOCYTES % (AUTO) 7.9 % (1.0-10.0); NEUTROPHILS % (AUTO) 74.6 % (45.0-75.0); PLATELET COUNT 304 K/UL (150-450); RED BLOOD COUNT 3.29 M/UL (4.70-6.10); RED CELL DISTRIBUTION WIDTH 13.1 % (11.6-14.8); WHITE BLOOD COUNT 10.5 K/UL (4.8-10.8)
[2016-10-10 07:15] LABS: ANION GAP 13 (5-15); CARBON DIOXIDE 24 mEQ/L (20-30); CHLORIDE 98 mEQ/L (98-107); CREATININE 0.7 mg/dL (0.7-1.2); HEMOLYSIS 0; MAGNESIUM 1.2 mg/dL (1.7-2.5); PHOSPHORUS 3.4 mg/dL (2.5-4.8); POTASSIUM 3.4 mEQ/L (3.4-4.9); SODIUM 135 mEQ/L (135-145)
[2016-10-10 07:49] VITALS: BP 132/69
[2016-10-10] MEDS: Aspirin Baby 81mg ORAL SCH (08:46)
[2016-10-10] MEDS: Docusate 100mg cap ORAL SCH (08:46)
[2016-10-10] MEDS: Heparin 5000 units/ml inj SUBQ SCH ×2 (08:47→21:37)
--- NOTE | 2016-10-10 09:47 | General Surgery Progress Note ---
General Surgery-Progress Note Subjective Procedure Performed laparoscopy, open cholecystectomy Chief Complaint: feels better, about 6-8 loose BMs, no abd pain, chandu liquids Symptoms: improved Additional Comments not hungry yet Objective Last 24 Hour Vital Signs Date Time Temp Pulse Resp B/P Pulse Ox O2 Delivery O2 Flow Rate FiO2 10/10/16 08:46 82 132/69 10/10/16 07:49 97.2 82 18 132/69 95 Room Air 10/10/16 04:00 97.7 85 16 115/56 95 Room Air 10/10/16 04:00 86 10/10/16 00:00 97.3 88 20 126/64 97 Room Air 10/10/16 00:00 86 10/09/16 20:00 88 10/09/16 19:00 97.7 90 20 146/77 98 Room Air 10/09/16 16:00 96 10/09/16 16:00 98.2 98 20 140/74 96 Room Air 10/09/16 12:00 111 10/09/16 11:40 97.2 103 20 109/68 97 Room Air I&O Intake and Output 10/09/16 10/10/16 18:59 06:59 Intake Total 840 ml 960 ml Output Total 120 ml 790 ml Balance 720 ml 170 ml Intake Oral 120 ml 240 ml IV Total 720 ml 720 ml Output Urine Total 600 ml Drainage Total 120 ml 190 ml # Voids 2 5 # Bowel Movements 5 3 Wound: clean Drains: christie - 315 cc/24hrs (daily about 300 cc) likely from bowel edema-3rd spaced fluids) Cardiovascular: RSR Respiratory: clear Abdomen: distended - 2+, BS normal, present bowel sounds Laboratory Tests Test 10/10/16 04:45 White Blood Count 10.5 K/UL (4.8-10.8) Red Blood Count 3.29 M/UL (4.70-6.10) L Hemoglobin 10.2 G/DL (14.2-18.0) L Hematocrit 29.7 % (42.0-52.0) L Mean Corpuscular Volume 90 FL (80-99) Mean Corpuscular Hemoglobin 31.0 PG (27.0-31.0) Mean Corpuscular Hemoglobin Concent 34.4 G/DL (32.0-36.0) Red Cell Distribution Width 13.1 % (11.6-14.8) Platelet Count 304 K/UL (150-450) Mean Platelet Volume 6.4 FL (6.5-10.1) L Neutrophils (%) (Auto) 74.6 % (45.0-75.0) Lymphocytes (%) (Auto) 15.6 % (20.0-45.0) L Monocytes (%) (Auto) 7.9 % (1.0-10.0) Eosinophils (%) (Auto) 1.4 % (0.0-3.0) Basophils (%) (Auto) 0.6 % (0.0-2.0) Sodium Level 135 mEQ/L (135-145) Potassium Level 3.4 mEQ/L (3.4-4.9) Chloride Level 98 mEQ/L (98-107) Carbon Dioxide Level 24 mEQ/L (20-30) Anion Gap 13 (5-15) Blood Urea Nitrogen 6 mg/dL (7-23) L Creatinine 0.7 mg/dL (0.7-1.2) Estimat Glomerular Filtration Rate mL/min (>60) Glucose Level 116 mg/dL (74-106) H Calcium Level 8.0 mg/dL (8.6-10.2) L Phosphorus Level 3.4 mg/dL (2.5-4.8) Magnesium Level 1.2 mg/dL (1.7-2.5) L Additional Comments Stable s/p laparoscopy, open cholecystectomy. Ileus resolving Diarrhea, r/o C.Diff colitis Assessment Additional Comments C. Diff assay Continue drain, full liquids, soft diet soon if no C. Diff. Staoles out soon. AXEL REEDER Oct 10, 2016 09:47
--- NOTE | 2016-10-10 10:26 | GI Progress Note ---
Assessment/Plan Problems: (1) Epigastric abdominal pain ICD Codes: R10.13 - Epigastric pain SNOMED: 55607798 (2) Choledocholithiasis ICD Codes: K80.50 - Calculus of bile duct without cholangitis or cholecystitis without obstruction SNOMED: 224952621 (3) LFTs abnormal ICD Codes: R79.89 - Other specified abnormal findings of blood chemistry SNOMED: 630071843 (4) Common bile duct (CBD) obstruction ICD Codes: K83.1 - Obstruction of bile duct SNOMED: 54010028, 95941911 (5) Abdominal pain ICD Codes: R10.9 - Unspecified abdominal pain SNOMED: 03057531 Qualifiers: Qualified Codes: R10.11 - Right upper quadrant pain Status: stable Status Narrative Discussed with Dr. Jarvis. Assessment/Plan Date of Service: 09/29/16 SURGEON: Wellington Jarvis M.D. INDICATION: Choledocholithiasis. SUMMARY FINDINGS: Status post endoscopic retrograde cholangiopancreatography sphincterotomy and stone removal. RECOMMENDATIONS: s/p open chalo diet per surgery, currently FLD pain mgmt fu biopsies >> negative for malignancies repeat LFTs ppi fu labs Subjective Gastrointestinal/Abdominal: Reports: abdominal pain - improved Objective Last 24 Hour Vital Signs Date Time Temp Pulse Resp B/P Pulse Ox O2 Delivery O2 Flow Rate FiO2 10/10/16 08:46 82 132/69 10/10/16 07:49 97.2 82 18 132/69 95 Room Air 10/10/16 04:00 97.7 85 16 115/56 95 Room Air 10/10/16 04:00 86 10/10/16 00:00 97.3 88 20 126/64 97 Room Air 10/10/16 00:00 86 10/09/16 20:00 88 10/09/16 19:00 97.7 90 20 146/77 98 Room Air 10/09/16 16:00 96 10/09/16 16:00 98.2 98 20 140/74 96 Room Air 10/09/16 12:00 111 10/09/16 11:40 97.2 103 20 109/68 97 Room Air Intake and Output 10/09/16 10/10/16 19:00 07:00 Intake Total 840 ml 960 ml Output Total 120 ml 790 ml Balance 720 ml 170 ml Intake Oral 120 ml 240 ml IV Total 720 ml 720 ml Output Urine Total 600 ml Drainage Total 120 ml 190 ml # Voids 2 5 # Bowel Movements 5 3 Laboratory Tests Test 10/10/16 04:45 White Blood Count 10.5 K/UL (4.8-10.8) Red Blood Count 3.29 M/UL (4.70-6.10) L Hemoglobin 10.2 G/DL (14.2-18.0) L Hematocrit 29.7 % (42.0-52.0) L Mean Corpuscular Volume 90 FL (80-99) Mean Corpuscular Hemoglobin 31.0 PG (27.0-31.0) Mean Corpuscular Hemoglobin Concent 34.4 G/DL (32.0-36.0) Red Cell Distribution Width 13.1 % (11.6-14.8) Platelet Count 304 K/UL (150-450) Mean Platelet Volume 6.4 FL (6.5-10.1) L Neutrophils (%) (Auto) 74.6 % (45.0-75.0) Lymphocytes (%) (Auto) 15.6 % (20.0-45.0) L Monocytes (%) (Auto) 7.9 % (1.0-10.0) Eosinophils (%) (Auto) 1.4 % (0.0-3.0) Basophils (%) (Auto) 0.6 % (0.0-2.0) Sodium Level 135 mEQ/L (135-145) Potassium Level 3.4 mEQ/L (3.4-4.9) Chloride Level 98 mEQ/L (98-107) Carbon Dioxide Level 24 mEQ/L (20-30) Anion Gap 13 (5-15) Blood Urea Nitrogen 6 mg/dL (7-23) L Creatinine 0.7 mg/dL (0.7-1.2) Estimat Glomerular Filtration Rate mL/min (>60) Glucose Level 116 mg/dL (74-106) H Calcium Level 8.0 mg/dL (8.6-10.2) L Phosphorus Level 3.4 mg/dL (2.5-4.8) Magnesium Level 1.2 mg/dL (1.7-2.5) L Height (Feet): 5 Height (Inches): 7.00 Weight (Pounds): 152 General Appearance: no apparent distress, alert Cardiovascular: normal rate Respiratory/Chest: normal breath sounds, no respiratory distress Abdominal Exam: normal bowel sounds, non tender Extremities: normal range of motion Objective Pre-op Diagnosis: acute cholecystitis, choledocholithiasis Procedure: laparoscopic converted to open cholecystectomy RN report, BM x 3 soft Sweta Diaz N.P. Oct 10, 2016 10:25
--- NOTE | 2016-10-10 10:29 | Urology Progress Note ---
Assessment/Plan Assessment/Plan 1. Urinary retention. 2. Benign prostatic hypertrophy. 3. Probable neurogenic bladder. 4. Hematuria. 5. Pyuria. 6. Proteinuria. 7. Renal cyst. 8. Adrenal adenoma. 9. Urethral stricture. novak out and voiding cont flomax and proscar monitor PVR and reinsert novak PRN renal fxn stable Subjective Allergies: Coded Allergies: No Known Allergies (Unverified , 09/29/16) Subjective all noted, feels fair, voiding, no bladder discomfort Objective Last 24 Hour Vital Signs Date Time Temp Pulse Resp B/P Pulse Ox O2 Delivery O2 Flow Rate FiO2 10/10/16 08:46 82 132/69 10/10/16 07:49 97.2 82 18 132/69 95 Room Air 10/10/16 04:00 97.7 85 16 115/56 95 Room Air 10/10/16 04:00 86 10/10/16 00:00 97.3 88 20 126/64 97 Room Air 10/10/16 00:00 86 10/09/16 20:00 88 10/09/16 19:00 97.7 90 20 146/77 98 Room Air 10/09/16 16:00 96 10/09/16 16:00 98.2 98 20 140/74 96 Room Air 10/09/16 12:00 111 10/09/16 11:40 97.2 103 20 109/68 97 Room Air Intake and Output 10/09/16 10/10/16 19:00 07:00 Intake Total 840 ml 960 ml Output Total 120 ml 790 ml Balance 720 ml 170 ml Intake Oral 120 ml 240 ml IV Total 720 ml 720 ml Output Urine Total 600 ml Drainage Total 120 ml 190 ml # Voids 2 5 # Bowel Movements 5 3 Microbiology Date/Time Source Procedure Growth Status 09/29/16 09:15 Blood Blood Culture - Final Strep Species, Alpha Hemolytic Complete Current Medications Medications (Trade) Dose Ordered Sig/Madina Route PRN Reason Start Time Stop Time Status Last Admin Dose Admin Acetaminophen (Tylenol) 500 mg EVERY 6 HOURS PRN ORAL Mild Pain/Temp > 100.5 09/29/16 13:15 10/29/16 13:14 10/06/16 19:59 Amlodipine Besylate (Norvasc) 5 mg DAILY ORAL 10/04/16 21:00 11/03/16 20:59 10/10/16 08:46 Aspirin (ASA) 81 mg DAILY ORAL 09/30/16 09:00 10/30/16 08:59 10/10/16 08:46 Clonidine HCl (Catapres) 0.1 mg Q6H PRN ORAL For High Blood Pressure 10/04/16 20:15 11/03/16 20:14 Dextrose (Dextrose 50%) STAT PRN IV Hypoglycemia 09/29/16 13:15 10/29/16 13:14 Dextrose/ Electrolytes (D5 0.45%NS W/ KCl 20mEq) 1,000 ml @ 60 mls/hr [id number] IV 10/06/16 10:30 11/05/16 10:29 10/09/16 21:24 Docusate Sodium 100 mg 100 mg DAILY ORAL 10/06/16 09:00 11/05/16 08:59 10/10/16 08:46 Finasteride (Proscar) 5 mg DAILY ORAL 10/04/16 13:00 11/03/16 12:59 10/10/16 08:46 Heparin Sodium (Porcine) (Heparin 5000 units/ml) 5,000 units EVERY 12 HOURS SUBQ 09/29/16 21:00 10/29/16 20:59 10/10/16 08:47 Hydromorphone HCl (Dilaudid) 0.5 mg Q3H PRN IVP Pain Score 1-3 10/03/16 15:30 10/10/16 15:29 10/08/16 08:07 Hydromorphone HCl (Dilaudid) 1 mg Q3H PRN IVP pain score 4-6 10/03/16 15:30 10/10/16 15:29 10/10/16 08:45 Insulin Aspart (NovoLOG) BEFORE MEALS AND HS SUBQ 09/29/16 16:30 10/29/16 16:29 10/09/16 21:28 Magnesium Sulfate (Magnesium Sulfate 1gm/100ml) 100 ml @ 100 mls/hr Q1H IVPB 10/10/16 11:00 10/10/16 14:59 Ondansetron HCl (Zofran) 4 mg Q6H PRN IVP Nausea & Vomiting 10/03/16 15:30 11/02/16 15:29 Pantoprazole (Protonix) 40 mg DAILY ORAL 09/30/16 09:00 10/30/16 08:59 10/10/16 08:46 Potassium Chloride 40 meq 40 meq TWICE A DAY ORAL 10/09/16 11:00 11/08/16 10:59 10/10/16 08:46 Pravastatin Sodium (Pravachol) 20 mg BEDTIME ORAL 09/29/16 21:00 10/29/16 20:59 10/09/16 21:23 Promethazine HCl/ Codeine (Phenergan with Codeine) 5 ml Q6H PRN ORAL For Cough 10/07/16 13:00 11/06/16 12:59 10/08/16 10:28 Sennosides (Senokot) 8.6 mg BID ORAL 10/05/16 18:00 11/04/16 17:59 10/10/16 08:46 Tamsulosin HCl (Flomax) 0.4 mg BEDTIME ORAL 10/04/16 21:00 11/03/16 20:59 10/09/16 21:23 Laboratory Tests 10/10/16 04:45: White Blood Count 10.5, Red Blood Count 3.29L, Hemoglobin 10.2L, Hematocrit 29.7L, Mean Corpuscular Volume 90, Mean Corpuscular Hemoglobin 31.0, Mean Corpuscular Hemoglobin Concent 34.4, Red Cell Distribution Width 13.1, Platelet Count 304, Mean Platelet Volume 6.4L, Neutrophils (%) (Auto) 74.6, Lymphocytes ( %) (Auto) 15.6L, Monocytes (%) (Auto) 7.9, Eosinophils (%) (Auto) 1.4, Basophils (%) (Auto) 0.6, Sodium Level 135, Potassium Level 3.4, Chloride Level 98, Carbon Dioxide Level 24, Anion Gap 13, Blood Urea Nitrogen 6L, Creatinine 0.7, Estimat Glomerular Filtration Rate , Glucose Level 116H, Calcium Level 8.0L , Phosphorus Level 3.4, Magnesium Level 1.2L Height (Feet): 5 Height (Inches): 7.00 Weight (Pounds): 152 Objective exam stable LEX RUIZ Oct 10, 2016 10:29
[2016-10-10 11:48] VITALS: BP 129/71
--- NOTE | 2016-10-10 13:40 | General Progress Note ---
Assessment/Plan Status: stable Assessment/Plan 1- Sever Sepsis: controlled 2-Abn LFT: Improving 3- Cholangitis/ acute cholecystitis 4- Abn BNP 5-UTI 5- Gi-DVT 6. HypoNatremia 7. BPH Plan: status post ERCP status post Open cholecystectomy current management per surgery service stop IV fluid discharge pending clearance by surgeon. Subjective ROS Limited/Unobtainable: No Constitutional: Reports: no symptoms HEENT: Reports: no symptoms Allergies: Coded Allergies: No Known Allergies (Unverified , 09/29/16) Objective Last 24 Hour Vital Signs Date Time Temp Pulse Resp B/P Pulse Ox O2 Delivery O2 Flow Rate FiO2 10/10/16 11:48 97.0 84 20 129/71 97 Room Air 10/10/16 08:46 82 132/69 10/10/16 07:49 97.2 82 18 132/69 95 Room Air 10/10/16 04:00 97.7 85 16 115/56 95 Room Air 10/10/16 04:00 86 10/10/16 00:00 97.3 88 20 126/64 97 Room Air 10/10/16 00:00 86 10/09/16 20:00 88 10/09/16 19:00 97.7 90 20 146/77 98 Room Air 10/09/16 16:00 96 10/09/16 16:00 98.2 98 20 140/74 96 Room Air Intake and Output 10/09/16 10/10/16 18:59 06:59 Intake Total 840 ml 960 ml Output Total 120 ml 790 ml Balance 720 ml 170 ml Intake Oral 120 ml 240 ml IV Total 720 ml 720 ml Output Urine Total 600 ml Drainage Total 120 ml 190 ml # Voids 2 5 # Bowel Movements 5 3 Laboratory Tests 10/10/16 04:45: White Blood Count 10.5, Red Blood Count 3.29L, Hemoglobin 10.2L, Hematocrit 29.7L, Mean Corpuscular Volume 90, Mean Corpuscular Hemoglobin 31.0, Mean Corpuscular Hemoglobin Concent 34.4, Red Cell Distribution Width 13.1, Platelet Count 304, Mean Platelet Volume 6.4L, Neutrophils (%) (Auto) 74.6, Lymphocytes ( %) (Auto) 15.6L, Monocytes (%) (Auto) 7.9, Eosinophils (%) (Auto) 1.4, Basophils (%) (Auto) 0.6, Sodium Level 135, Potassium Level 3.4, Chloride Level 98, Carbon Dioxide Level 24, Anion Gap 13, Blood Urea Nitrogen 6L, Creatinine 0.7, Estimat Glomerular Filtration Rate , Glucose Level 116H, Calcium Level 8.0L , Phosphorus Level 3.4, Magnesium Level 1.2L Height (Feet): 5 Height (Inches): 7.00 Weight (Pounds): 152 General Appearance: no apparent distress EENT: PERRL/EOMI Neck: supple Cardiovascular: normal rate Respiratory/Chest: lungs clear Abdomen: soft Extremities: non-tender 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
[2016-10-10 16:00] VITALS: BP 114/65
--- NOTE | 2016-10-10 16:42 | Infectious Diseases Prog Note ---
Assessment/Plan Assessment/Plan ASSESSMENT: 75-year-old male with: cholangitis vs cholecystitis SP Rx SP laparoscopic conversion to open cholecystectomy 10/02 SP Status post endoscopic retrograde cholangiopancreatography sphincterotomy and stone removal Diarrhea r/o C.difficile - toxin pending Fever - resolved Bcx: Alpha-Strp, m/l biliary source SP Rx TTE(-) veg leukocytosis - resolved Ur Obst , SP Rosas CAD Diabetes NKDA Full Code PLAN: monitor pt off of AB Rx for now ( 10/06 SP IV Zosyn d# 7 ) ( 10/04 SP Zyvox s# 3 ) f/u C.diff Monitor CBC, temperatures, re-culture if recurrent fever or worsening leukocytosis Monitor CMP Subjective Allergies: Coded Allergies: No Known Allergies (Unverified , 09/29/16) Subjective remains afebrile. recurrent mild leukocytosis resolved diarrhea, C.diff pending Objective Vital Signs Last 24 Hour Vital Signs Date Time Temp Pulse Resp B/P Pulse Ox O2 Delivery O2 Flow Rate FiO2 10/10/16 16:00 99.3 85 20 114/65 96 Room Air 10/10/16 12:00 80 10/10/16 11:48 97.0 84 20 129/71 97 Room Air 10/10/16 08:46 82 132/69 10/10/16 08:00 81 10/10/16 07:49 97.2 82 18 132/69 95 Room Air 10/10/16 04:00 97.7 85 16 115/56 95 Room Air 10/10/16 04:00 86 10/10/16 00:00 97.3 88 20 126/64 97 Room Air 10/10/16 00:00 86 10/09/16 20:00 88 10/09/16 19:00 97.7 90 20 146/77 98 Room Air Height (Feet): 5 Height (Inches): 7.00 Weight (Pounds): 152 General Appearance: no acute distress Respiratory/Chest: no respiratory distress Cardiovascular: normal rate, regular rhythm Abdomen: normal bowel sounds, soft, non tender, non distended Laboratory Tests Test 10/10/16 04:45 White Blood Count 10.5 K/UL (4.8-10.8) Red Blood Count 3.29 M/UL (4.70-6.10) L Hemoglobin 10.2 G/DL (14.2-18.0) L Hematocrit 29.7 % (42.0-52.0) L Mean Corpuscular Volume 90 FL (80-99) Mean Corpuscular Hemoglobin 31.0 PG (27.0-31.0) Mean Corpuscular Hemoglobin Concent 34.4 G/DL (32.0-36.0) Red Cell Distribution Width 13.1 % (11.6-14.8) Platelet Count 304 K/UL (150-450) Mean Platelet Volume 6.4 FL (6.5-10.1) L Neutrophils (%) (Auto) 74.6 % (45.0-75.0) Lymphocytes (%) (Auto) 15.6 % (20.0-45.0) L Monocytes (%) (Auto) 7.9 % (1.0-10.0) Eosinophils (%) (Auto) 1.4 % (0.0-3.0) Basophils (%) (Auto) 0.6 % (0.0-2.0) Sodium Level 135 mEQ/L (135-145) Potassium Level 3.4 mEQ/L (3.4-4.9) Chloride Level 98 mEQ/L (98-107) Carbon Dioxide Level 24 mEQ/L (20-30) Anion Gap 13 (5-15) Blood Urea Nitrogen 6 mg/dL (7-23) L Creatinine 0.7 mg/dL (0.7-1.2) Estimat Glomerular Filtration Rate mL/min (>60) Glucose Level 116 mg/dL (74-106) H Calcium Level 8.0 mg/dL (8.6-10.2) L Phosphorus Level 3.4 mg/dL (2.5-4.8) Magnesium Level 1.2 mg/dL (1.7-2.5) L Current Medications Medications (Trade) Dose Ordered Sig/Madina Route PRN Reason Start Time Stop Time Status Last Admin Dose Admin Acetaminophen (Tylenol) 500 mg EVERY 6 HOURS PRN ORAL Mild Pain/Temp > 100.5 09/29/16 13:15 10/29/16 13:14 10/06/16 19:59 Amlodipine Besylate (Norvasc) 5 mg DAILY ORAL 10/04/16 21:00 11/03/16 20:59 10/10/16 08:46 Aspirin (ASA) 81 mg DAILY ORAL 09/30/16 09:00 10/30/16 08:59 10/10/16 08:46 Clonidine HCl (Catapres) 0.1 mg Q6H PRN ORAL For High Blood Pressure 10/04/16 20:15 11/03/16 20:14 Dextrose (Dextrose 50%) STAT PRN IV Hypoglycemia 09/29/16 13:15 10/29/16 13:14 Docusate Sodium (Colace) 100 mg DAILY ORAL 10/06/16 09:00 11/05/16 08:59 10/10/16 08:46 Finasteride (Proscar) 5 mg DAILY ORAL 10/04/16 13:00 11/03/16 12:59 10/10/16 08:46 Heparin Sodium (Porcine) (Heparin 5000 units/ml) 5,000 units EVERY 12 HOURS SUBQ 09/29/16 21:00 10/29/16 20:59 10/10/16 08:47 Insulin Aspart (NovoLOG) BEFORE MEALS AND HS SUBQ 09/29/16 16:30 10/29/16 16:29 10/10/16 12:25 Ondansetron HCl (Zofran) 4 mg Q6H PRN IVP Nausea & Vomiting 10/03/16 15:30 11/02/16 15:29 Pantoprazole (Protonix) 40 mg DAILY ORAL 09/30/16 09:00 10/30/16 08:59 10/10/16 08:46 Potassium Chloride (K-Dur) 40 meq TWICE A DAY ORAL 10/09/16 11:00 11/08/16 10:59 10/10/16 08:46 Pravastatin Sodium (Pravachol) 20 mg BEDTIME ORAL 09/29/16 21:00 10/29/16 20:59 10/09/16 21:23 Promethazine HCl/ Codeine (Phenergan with Codeine) 5 ml Q6H PRN ORAL For Cough 10/07/16 13:00 11/06/16 12:59 10/08/16 10:28 Sennosides (Senokot) 8.6 mg BID ORAL 10/05/16 18:00 11/04/16 17:59 10/10/16 08:46 Tamsulosin HCl (Flomax) 0.4 mg BEDTIME ORAL 10/04/16 21:00 11/03/16 20:59 10/09/16 21:23 OZZIE FORTE Oct 10, 2016 16:42
[2016-10-10 20:00] VITALS: BP 139/87
[2016-10-10] MEDS ORDERED: HYDROmorphone 1mg/ml Carpuject IVP PRN (21:00)
[2016-10-10] MEDS ORDERED: Acetaminophen 500mg (ES) tab ORAL PRN (21:00)
[2016-10-10] MEDS ORDERED: Promethazine/Codeine 5ml UD ORAL PRN (21:15)
[2016-10-11] VITALS: BP 123/64
[2016-10-11 04:00] VITALS: BP 110/63
[2016-10-11] MEDS ORDERED: NovoLOG Insulin Flexpen SUBQ SCH ×2 (06:30→22:30)
[2016-10-11 07:15] LABS: BASOPHILS % (AUTO) 0.5 % (0.0-2.0); LYMPHOCYTES % (AUTO) 24.6 % (20.0-45.0); MEAN CORPUSCULAR HGB CONC 35.5 G/DL (32.0-36.0); MEAN CORPUSCULAR VOLUME 90 FL (80-99); MEAN PLATELET VOLUME 6.4 FL (6.5-10.1); MONOCYTES % (AUTO) 6.9 % (1.0-10.0); PLATELET COUNT 317 K/UL (150-450); WHITE BLOOD COUNT 9.6 K/UL (4.8-10.8)
[2016-10-11 07:32] LABS: ALANINE AMINOTRANSFERASE 31 U/L (3-41); ANION GAP 13 (5-15); ASPARTATE AMINO TRANSFERASE 24 U/L (5-40); CARBON DIOXIDE 24 mEQ/L (20-30); CHLORIDE 103 mEQ/L (98-107); CREATININE 0.7 mg/dL (0.7-1.2); HEMOLYSIS 5; MAGNESIUM 1.6 mg/dL (1.7-2.5); POTASSIUM 3.7 mEQ/L (3.4-4.9); SODIUM 140 mEQ/L (135-145); TOTAL PROTEIN 5.2 g/dL (6.6-8.7)
[2016-10-11 08:01] VITALS: BP 121/61
[2016-10-11] MEDS ORDERED: Hydromorphone 0.5mg/0.5ml inj IVP PRN ×2 (08:30→09:52)
--- NOTE | 2016-10-11 08:41 | General Progress Note ---
Assessment/Plan Status: stable Assessment/Plan 1- Sever Sepsis: controlled 2-Abn LFT: Improving 3- Cholangitis/ acute cholecystitis 4- Abn BNP 5-UTI 5- Gi-DVT 6. HypoNatremia 7. BPH Plan: status post ERCP status post Open cholecystectomy stop IV fluid discharge pending clearance by surgeon. Subjective ROS Limited/Unobtainable: No Constitutional: Reports: no symptoms HEENT: Reports: no symptoms Cardiovascular: Reports: no symptoms Respiratory: Reports: no symptoms Allergies: Coded Allergies: No Known Allergies (Unverified , 09/29/16) Objective Last 24 Hour Vital Signs Date Time Temp Pulse Resp B/P Pulse Ox O2 Delivery O2 Flow Rate FiO2 10/11/16 08:01 97.7 75 20 121/61 97 Room Air 10/11/16 04:00 97.5 76 16 110/63 97 Room Air 10/11/16 00:00 97.3 98 16 123/64 97 Room Air 10/10/16 22:05 99.7 10/10/16 20:00 99.7 82 20 139/87 98 Room Air 10/10/16 16:00 99.3 85 20 114/65 96 Room Air 10/10/16 12:00 80 10/10/16 11:48 97.0 84 20 129/71 97 Room Air 10/10/16 08:46 82 132/69 Intake and Output 10/10/16 10/11/16 19:00 07:00 Intake Total 940 ml Output Total 400 ml 80 ml Balance 540 ml -80 ml Intake Oral 240 ml IV Total 700 ml Output Urine Total 300 ml Drainage Total 100 ml 80 ml # Voids 2 # Bowel Movements 1 Laboratory Tests 10/11/16 04:45: White Blood Count 9.6, Red Blood Count 3.20L, Hemoglobin 10.2L, Hematocrit 28.9L , Mean Corpuscular Volume 90, Mean Corpuscular Hemoglobin 32.0H, Mean Corpuscular Hemoglobin Concent 35.5, Red Cell Distribution Width 13.0, Platelet Count 317, Mean Platelet Volume 6.4L, Neutrophils (%) (Auto) 65.0, Lymphocytes ( %) (Auto) 24.6, Monocytes (%) (Auto) 6.9, Eosinophils (%) (Auto) 3.0, Basophils (%) (Auto) 0.5, Sodium Level 140, Potassium Level 3.7, Chloride Level 103, Carbon Dioxide Level 24, Anion Gap 13, Blood Urea Nitrogen 6L, Creatinine 0.7, Estimat Glomerular Filtration Rate , Glucose Level 94, Calcium Level 8.0L, Magnesium Level 1.6L, Total Bilirubin 0.6, Aspartate Amino Transf (AST/SGOT) 24 , Alanine Aminotransferase (ALT/SGPT) 31, Alkaline Phosphatase 132H, Total Protein 5.2L, Albumin 2.6L, Globulin 2.6, Albumin/Globulin Ratio 1.0 Height (Feet): 5 Height (Inches): 7.00 Weight (Pounds): 152 General Appearance: no apparent distress EENT: PERRL/EOMI Neck: supple Cardiovascular: normal rate Respiratory/Chest: lungs clear Abdomen: soft, distended, other Extremities: non-tender Neurologic: compensation advisor II-XII grossly normal Charles Wood MD Oct 11, 2016 08:41
[2016-10-11] MEDS ORDERED: Docusate 100mg cap ORAL SCH (09:00)
[2016-10-11] MEDS: Aspirin Baby 81mg ORAL SCH (09:39)
[2016-10-11] MEDS: Heparin 5000 units/ml inj SUBQ SCH ×2 (09:43→22:05)
--- NOTE | 2016-10-11 09:43 | General Progress Note ---
Progress Note Progress Note Patient seen and examined at bedside with no acute events. Afebrile, HD stable , labs improved. Multiple loose BM. pending C diff studies. tolerating diet. ambulatory. Abdominal exam improved as well. currently soft, non distended, non tender, drain output serous. Plan: Pending final c diff Needs to be more ambulatory Potential d/c home by the end of this week. If drain output decreases will remove drain prior to d/c, if not can go home with drain. Pedrito Millan Oct 11, 2016 09:43
[2016-10-11] MEDS ORDERED: Norco 5mg/325mg tab ORAL PRN (10:00)
--- NOTE | 2016-10-11 11:23 | Urology Progress Note ---
Assessment/Plan Assessment/Plan 1. Urinary retention. 2. Benign prostatic hypertrophy. 3. Probable neurogenic bladder. 4. Hematuria. 5. Pyuria. 6. Proteinuria. 7. Renal cyst. 8. Adrenal adenoma. 9. Urethral stricture. novak out and voiding cont flomax and proscar monitor PVR and reinsert novak PRN renal fxn stable Subjective Allergies: Coded Allergies: No Known Allergies (Unverified , 09/29/16) Subjective all noted, feels fair, voiding, no bladder discomfort Objective Last 24 Hour Vital Signs Date Time Temp Pulse Resp B/P Pulse Ox O2 Delivery O2 Flow Rate FiO2 10/11/16 09:41 75 121/61 10/11/16 08:01 97.7 75 20 121/61 97 Room Air 10/11/16 04:00 97.5 76 16 110/63 97 Room Air 10/11/16 00:00 97.3 98 16 123/64 97 Room Air 10/10/16 22:05 99.7 10/10/16 20:00 99.7 82 20 139/87 98 Room Air 10/10/16 16:00 99.3 85 20 114/65 96 Room Air 10/10/16 12:00 80 10/10/16 11:48 97.0 84 20 129/71 97 Room Air Intake and Output 10/10/16 10/11/16 19:00 07:00 Intake Total 940 ml Output Total 400 ml 80 ml Balance 540 ml -80 ml Intake Oral 240 ml IV Total 700 ml Output Urine Total 300 ml Drainage Total 100 ml 80 ml # Voids 2 # Bowel Movements 1 Microbiology Date/Time Source Procedure Growth Status 09/29/16 09:15 Blood Blood Culture - Final Strep Species, Alpha Hemolytic Complete 10/10/16 11:30 Stool Clostridium difficile Toxin Assay - Final Complete Current Medications Medications (Trade) Dose Ordered Sig/Madina Route PRN Reason Start Time Stop Time Status Last Admin Dose Admin Acetaminophen (Tylenol) 500 mg Q6H PRN ORAL Mild Pain/Temp > 100.5 10/11/16 15:00 11/10/16 23:59 Acetaminophen/ Hydrocodone Bitart ([place] 5/325) 1 tab Q4H PRN ORAL Moderate Pain (Pain Scale 4-6) 10/11/16 10:00 10/18/16 09:59 Amlodipine Besylate (Norvasc) 5 mg DAILY ORAL 10/11/16 09:00 11/10/16 08:59 10/11/16 09:41 Aspirin (ASA) 81 mg DAILY ORAL 10/11/16 09:00 11/10/16 08:59 10/11/16 09:39 Clonidine HCl (Catapres) 0.1 mg Q6H PRN ORAL SBP > 175 10/10/16 21:00 11/09/16 20:59 Dextrose (Dextrose 50%) STAT PRN IV Hypoglycemia 10/10/16 21:15 11/09/16 21:14 Finasteride (Proscar) 5 mg DAILY ORAL 10/11/16 09:00 11/10/16 08:59 10/11/16 09:40 Heparin Sodium (Porcine) (Heparin 5000 units/ml) 5,000 units EVERY 12 HOURS SUBQ 10/10/16 22:00 11/09/16 21:59 10/11/16 09:43 Hydromorphone HCl (Dilaudid) 1 mg Q3H PRN IVP For Pain 10/10/16 21:00 10/17/16 20:59 10/10/16 21:35 Hydromorphone HCl 0.5 mg 0.5 mg Q3H PRN IVP FOR PAIN 4-6 10/11/16 09:52 10/18/16 08:29 Insulin Aspart (NovoLOG) BEFORE MEALS AND HS SUBQ 10/11/16 11:30 11/10/16 11:29 Magnesium Sulfate (Magnesium Sulfate 1gm/100ml) 100 ml @ 100 mls/hr Q1H IVPB 10/11/16 12:00 10/11/16 13:59 Ondansetron HCl (Zofran) 4 mg Q6H PRN IVP Nausea & Vomiting 10/11/16 15:30 11/10/16 23:59 Pantoprazole (Protonix) 40 mg DAILY ORAL 10/11/16 09:00 11/10/16 08:59 10/11/16 09:40 Potassium Chloride (K-Dur) 40 meq TWICE A DAY ORAL 10/11/16 09:00 11/10/16 08:59 10/11/16 09:40 Pravastatin Sodium (Pravachol) 20 mg BEDTIME ORAL 10/11/16 22:30 11/10/16 22:29 Promethazine HCl/ Codeine (Phenergan with Codeine) 5 ml Q6H PRN ORAL For Cough 10/10/16 21:15 11/09/16 21:14 Tamsulosin HCl (Flomax) 0.4 mg BEDTIME ORAL 10/11/16 22:30 11/10/16 22:29 Laboratory Tests 10/11/16 04:45: White Blood Count 9.6, Red Blood Count 3.20L, Hemoglobin 10.2L, Hematocrit 28.9L , Mean Corpuscular Volume 90, Mean Corpuscular Hemoglobin 32.0H, Mean Corpuscular Hemoglobin Concent 35.5, Red Cell Distribution Width 13.0, Platelet Count 317, Mean Platelet Volume 6.4L, Neutrophils (%) (Auto) 65.0, Lymphocytes ( %) (Auto) 24.6, Monocytes (%) (Auto) 6.9, Eosinophils (%) (Auto) 3.0, Basophils (%) (Auto) 0.5, Sodium Level 140, Potassium Level 3.7, Chloride Level 103, Carbon Dioxide Level 24, Anion Gap 13, Blood Urea Nitrogen 6L, Creatinine 0.7, Estimat Glomerular Filtration Rate , Glucose Level 94, Calcium Level 8.0L, Magnesium Level 1.6L, Total Bilirubin 0.6, Aspartate Amino Transf (AST/SGOT) 24 , Alanine Aminotransferase (ALT/SGPT) 31, Alkaline Phosphatase 132H, Total Protein 5.2L, Albumin 2.6L, Globulin 2.6, Albumin/Globulin Ratio 1.0 Height (Feet): 5 Height (Inches): 7.00 Weight (Pounds): 152 Objective exam stable LEX RUIZ Oct 11, 2016 11:23
[2016-10-11 11:49] VITALS: BP 119/54
[2016-10-11] MEDS: NovoLOG Insulin Flexpen SUBQ SCH ×3 (12:25→22:05)
--- NOTE | 2016-10-11 12:25 | GI Progress Note ---
Assessment/Plan Problems: (1) Epigastric abdominal pain ICD Codes: R10.13 - Epigastric pain SNOMED: 51740458 (2) Choledocholithiasis ICD Codes: K80.50 - Calculus of bile duct without cholangitis or cholecystitis without obstruction SNOMED: 097362826 (3) LFTs abnormal ICD Codes: R79.89 - Other specified abnormal findings of blood chemistry SNOMED: 810152051 (4) Common bile duct (CBD) obstruction ICD Codes: K83.1 - Obstruction of bile duct SNOMED: 67834268, 23281752 (5) Abdominal pain ICD Codes: R10.9 - Unspecified abdominal pain SNOMED: 02573511 Qualifiers: Qualified Codes: R10.11 - Right upper quadrant pain Status: stable, progressing Status Narrative Discussed with Dr. Jarvis. Assessment/Plan Date of Service: 09/29/16 SURGEON: Wellington Jarvis M.D. INDICATION: Choledocholithiasis. SUMMARY FINDINGS: Status post endoscopic retrograde cholangiopancreatography sphincterotomy and stone removal. RECOMMENDATIONS: s/p open chalo diet per surgery, currently soft pain mgmt fu biopsies >> negative for malignancies repeat LFTs ppi fu labs Subjective Gastrointestinal/Abdominal: Reports: abdominal pain - minimal Objective Last 24 Hour Vital Signs Date Time Temp Pulse Resp B/P Pulse Ox O2 Delivery O2 Flow Rate FiO2 10/11/16 11:49 97.5 81 20 119/54 97 Room Air 10/11/16 09:41 75 121/61 10/11/16 08:01 97.7 75 20 121/61 97 Room Air 10/11/16 04:00 97.5 76 16 110/63 97 Room Air 10/11/16 00:00 97.3 98 16 123/64 97 Room Air 10/10/16 22:05 99.7 10/10/16 20:00 99.7 82 20 139/87 98 Room Air 10/10/16 16:00 99.3 85 20 114/65 96 Room Air Intake and Output 10/10/16 10/11/16 19:00 07:00 Intake Total 940 ml Output Total 400 ml 80 ml Balance 540 ml -80 ml Intake Oral 240 ml IV Total 700 ml Output Urine Total 300 ml Drainage Total 100 ml 80 ml # Voids 2 # Bowel Movements 1 Laboratory Tests Test 10/11/16 04:45 White Blood Count 9.6 K/UL (4.8-10.8) Red Blood Count 3.20 M/UL (4.70-6.10) L Hemoglobin 10.2 G/DL (14.2-18.0) L Hematocrit 28.9 % (42.0-52.0) L Mean Corpuscular Volume 90 FL (80-99) Mean Corpuscular Hemoglobin 32.0 PG (27.0-31.0) H Mean Corpuscular Hemoglobin Concent 35.5 G/DL (32.0-36.0) Red Cell Distribution Width 13.0 % (11.6-14.8) Platelet Count 317 K/UL (150-450) Mean Platelet Volume 6.4 FL (6.5-10.1) L Neutrophils (%) (Auto) 65.0 % (45.0-75.0) Lymphocytes (%) (Auto) 24.6 % (20.0-45.0) Monocytes (%) (Auto) 6.9 % (1.0-10.0) Eosinophils (%) (Auto) 3.0 % (0.0-3.0) Basophils (%) (Auto) 0.5 % (0.0-2.0) Sodium Level 140 mEQ/L (135-145) Potassium Level 3.7 mEQ/L (3.4-4.9) Chloride Level 103 mEQ/L (98-107) Carbon Dioxide Level 24 mEQ/L (20-30) Anion Gap 13 (5-15) Blood Urea Nitrogen 6 mg/dL (7-23) L Creatinine 0.7 mg/dL (0.7-1.2) Estimat Glomerular Filtration Rate mL/min (>60) Glucose Level 94 mg/dL (74-106) Calcium Level 8.0 mg/dL (8.6-10.2) L Magnesium Level 1.6 mg/dL (1.7-2.5) L Total Bilirubin 0.6 mg/dL (0.0-1.2) Aspartate Amino Transf (AST/SGOT) 24 U/L (5-40) Alanine Aminotransferase (ALT/SGPT) 31 U/L (3-41) Alkaline Phosphatase 132 U/L (40-129) H Total Protein 5.2 g/dL (6.6-8.7) L Albumin 2.6 g/dL (3.5-5.2) L Globulin 2.6 g/dL Albumin/Globulin Ratio 1.0 (1.0-2.7) Height (Feet): 5 Height (Inches): 7.00 Weight (Pounds): 152 General Appearance: no apparent distress, alert Cardiovascular: normal rate Respiratory/Chest: normal breath sounds, no respiratory distress Abdominal Exam: normal bowel sounds, non tender, soft Extremities: normal range of motion Objective Pre-op Diagnosis: acute cholecystitis, choledocholithiasis Procedure: laparoscopic converted to open cholecystectomy Less agitated. Ambulating with walker. Tolerating Diet. Sweta Diaz N.P. Oct 11, 2016 12:25
[2016-10-11] MEDS ORDERED: Acetaminophen 500mg (ES) tab ORAL PRN (15:00)
[2016-10-11 16:00] VITALS: BP 112/60
--- NOTE | 2016-10-11 18:13 | Infectious Diseases Prog Note ---
Assessment/Plan Assessment/Plan ASSESSMENT: 75-year-old male with: cholangitis vs cholecystitis SP Rx SP laparoscopic conversion to open cholecystectomy 10/02 SP Status post endoscopic retrograde cholangiopancreatography sphincterotomy and stone removal Diarrhea - improved, C.difficile(-) Fever - resolved Bcx: Alpha-Strp, m/l biliary source SP Rx TTE(-) veg leukocytosis - resolved Ur Obst , SP Rosas CAD Diabetes NKDA Full Code PLAN: monitor pt off of AB Rx for now ( 2/ SP IV Zosyn d# 7 ) ( 2/ SP Zyvox s# 3 ) Monitor CBC, temperatures, re-culture if recurrent fever or worsening leukocytosis Monitor CMP Subjective Allergies: Coded Allergies: No Known Allergies (Unverified , 09/29/16) Subjective remains afebrile. recurrent mild leukocytosis resolved diarrhea improved, C.diff(-) Objective Vital Signs Last 24 Hour Vital Signs Date Time Temp Pulse Resp B/P Pulse Ox O2 Delivery O2 Flow Rate FiO2 10/11/16 16:00 97.9 88 18 112/60 97 Room Air 10/11/16 11:49 97.5 81 20 119/54 97 Room Air 10/11/16 09:41 75 121/61 10/11/16 08:01 97.7 75 20 121/61 97 Room Air 10/11/16 04:00 97.5 76 16 110/63 97 Room Air 10/11/16 00:00 97.3 98 16 123/64 97 Room Air 10/10/16 22:05 99.7 10/10/16 20:00 99.7 82 20 139/87 98 Room Air Height (Feet): 5 Height (Inches): 7.00 Weight (Pounds): 152 General Appearance: no acute distress Respiratory/Chest: no respiratory distress Cardiovascular: normal rate, regular rhythm Abdomen: normal bowel sounds, soft, non tender, non distended Microbiology Date/Time Source Procedure Growth Status 10/10/16 11:30 Stool Clostridium difficile Toxin Assay - Final Complete Laboratory Tests Test 10/11/16 04:45 White Blood Count 9.6 K/UL (4.8-10.8) Red Blood Count 3.20 M/UL (4.70-6.10) L Hemoglobin 10.2 G/DL (14.2-18.0) L Hematocrit 28.9 % (42.0-52.0) L Mean Corpuscular Volume 90 FL (80-99) Mean Corpuscular Hemoglobin 32.0 PG (27.0-31.0) H Mean Corpuscular Hemoglobin Concent 35.5 G/DL (32.0-36.0) Red Cell Distribution Width 13.0 % (11.6-14.8) Platelet Count 317 K/UL (150-450) Mean Platelet Volume 6.4 FL (6.5-10.1) L Neutrophils (%) (Auto) 65.0 % (45.0-75.0) Lymphocytes (%) (Auto) 24.6 % (20.0-45.0) Monocytes (%) (Auto) 6.9 % (1.0-10.0) Eosinophils (%) (Auto) 3.0 % (0.0-3.0) Basophils (%) (Auto) 0.5 % (0.0-2.0) Sodium Level 140 mEQ/L (135-145) Potassium Level 3.7 mEQ/L (3.4-4.9) Chloride Level 103 mEQ/L (98-107) Carbon Dioxide Level 24 mEQ/L (20-30) Anion Gap 13 (5-15) Blood Urea Nitrogen 6 mg/dL (7-23) L Creatinine 0.7 mg/dL (0.7-1.2) Estimat Glomerular Filtration Rate mL/min (>60) Glucose Level 94 mg/dL (74-106) Calcium Level 8.0 mg/dL (8.6-10.2) L Magnesium Level 1.6 mg/dL (1.7-2.5) L Total Bilirubin 0.6 mg/dL (0.0-1.2) Aspartate Amino Transf (AST/SGOT) 24 U/L (5-40) Alanine Aminotransferase (ALT/SGPT) 31 U/L (3-41) Alkaline Phosphatase 132 U/L (40-129) H Total Protein 5.2 g/dL (6.6-8.7) L Albumin 2.6 g/dL (3.5-5.2) L Globulin 2.6 g/dL Albumin/Globulin Ratio 1.0 (1.0-2.7) Current Medications Medications (Trade) Dose Ordered Sig/Madina Route PRN Reason Start Time Stop Time Status Last Admin Dose Admin Acetaminophen (Tylenol) 500 mg Q6H PRN ORAL Mild Pain/Temp > 100.5 10/11/16 15:00 11/10/16 23:59 Acetaminophen/ Hydrocodone Bitart ([place] 5/325) 1 tab Q4H PRN ORAL Moderate Pain (Pain Scale 4-6) 10/11/16 10:00 10/18/16 09:59 Amlodipine Besylate (Norvasc) 5 mg DAILY ORAL 10/11/16 09:00 11/10/16 08:59 10/11/16 09:41 Aspirin (ASA) 81 mg DAILY ORAL 10/11/16 09:00 11/10/16 08:59 10/11/16 09:39 Clonidine HCl (Catapres) 0.1 mg Q6H PRN ORAL SBP > 175 10/10/16 21:00 11/09/16 20:59 Dextrose (Dextrose 50%) STAT PRN IV Hypoglycemia 10/10/16 21:15 11/09/16 21:14 Finasteride (Proscar) 5 mg DAILY ORAL 10/11/16 09:00 11/10/16 08:59 10/11/16 09:40 Heparin Sodium (Porcine) (Heparin 5000 units/ml) 5,000 units EVERY 12 HOURS SUBQ 10/10/16 22:00 11/09/16 21:59 10/11/16 09:43 Hydromorphone HCl (Dilaudid) 0.5 mg Q3H PRN IVP FOR PAIN 4-6 10/11/16 09:52 10/18/16 08:29 Hydromorphone HCl (Dilaudid) 1 mg Q3H PRN IVP For Pain 10/10/16 21:00 10/17/16 20:59 10/10/16 21:35 Insulin Aspart (NovoLOG) BEFORE MEALS AND HS SUBQ 10/11/16 11:30 11/10/16 11:29 10/11/16 17:10 Ondansetron HCl (Zofran) 4 mg Q6H PRN IVP Nausea & Vomiting 10/11/16 15:30 11/10/16 23:59 Pantoprazole (Protonix) 40 mg DAILY ORAL 10/11/16 09:00 11/10/16 08:59 10/11/16 09:40 Potassium Chloride (K-Dur) 40 meq TWICE A DAY ORAL 10/11/16 09:00 11/10/16 08:59 10/11/16 09:40 Pravastatin Sodium (Pravachol) 20 mg BEDTIME ORAL 10/11/16 22:30 11/10/16 22:29 Promethazine HCl/ Codeine (Phenergan with Codeine) 5 ml Q6H PRN ORAL For Cough 10/10/16 21:15 11/09/16 21:14 Tamsulosin HCl (Flomax) 0.4 mg BEDTIME ORAL 10/11/16 22:30 11/10/16 22:29 OZZIE FORTE Oct 11, 2016 18:13
[2016-10-11 19:00] VITALS: BP 130/65
[2016-10-11] MEDS ORDERED: Tamsulosin 0.4mg cap ORAL SCH (22:30)
[2016-10-11] MEDS: HYDROmorphone 1mg/ml Carpuject IVP PRN (23:43)
[2016-10-12] VITALS: BP 121/67
[2016-10-12 04:00] VITALS: BP 132/70
[2016-10-12] MEDS: NovoLOG Insulin Flexpen SUBQ SCH ×2 (06:15→12:25)
[2016-10-12 07:22] LABS: BASOPHILS % (AUTO) 0.5 % (0.0-2.0); EOSINOPHILS % (AUTO) 3.2 % (0.0-3.0); LYMPHOCYTES % (AUTO) 28.6 % (20.0-45.0); MEAN CORPUSCULAR HEMOGLOBIN 31.1 PG (27.0-31.0); MEAN CORPUSCULAR HGB CONC 34.2 G/DL (32.0-36.0); MEAN CORPUSCULAR VOLUME 91 FL (80-99); MEAN PLATELET VOLUME 6.4 FL (6.5-10.1); MONOCYTES % (AUTO) 7.4 % (1.0-10.0); NEUTROPHILS % (AUTO) 60.3 % (45.0-75.0); PLATELET COUNT 290 K/UL (150-450); RED BLOOD COUNT 3.11 M/UL (4.70-6.10); RED CELL DISTRIBUTION WIDTH 12.9 % (11.6-14.8)
[2016-10-12 07:30] LABS: ALANINE AMINOTRANSFERASE 33 U/L (3-41); ALBUMIN/GLOBULIN RATIO 0.9 (1.0-2.7); ANION GAP 12 (5-15); ASPARTATE AMINO TRANSFERASE 29 U/L (5-40); CALCIUM 8.3 mg/dL (8.6-10.2); CARBON DIOXIDE 25 mEQ/L (20-30); CHLORIDE 103 mEQ/L (98-107); CREATININE 0.7 mg/dL (0.7-1.2); HEMOLYSIS 2; POTASSIUM 3.9 mEQ/L (3.4-4.9); SODIUM 140 mEQ/L (135-145); TOTAL PROTEIN 5.3 g/dL (6.6-8.7)
[2016-10-12 08:15] VITALS: BP 121/48
[2016-10-12] MEDS: Aspirin Baby 81mg ORAL SCH (08:47)
[2016-10-12] MEDS: Heparin 5000 units/ml inj SUBQ SCH (08:59)
--- NOTE | 2016-10-12 09:21 | General Surgery Progress Note ---
General Surgery-Progress Note Subjective Day of Surgery: po day 8 Procedure Performed s.p repair of perforated gastric ulcer Symptoms: pain absent, tolerating diet, passing flatus, BM Objective Last 24 Hour Vital Signs Date Time Temp Pulse Resp B/P Pulse Ox O2 Delivery O2 Flow Rate FiO2 10/12/16 08:48 78 121/48 10/12/16 08:15 97.2 78 20 121/48 97 Room Air 10/12/16 04:00 97.5 72 16 132/70 97 Room Air 10/12/16 00:19 98.1 10/12/16 00:00 97.1 76 16 121/67 96 Room Air 10/11/16 19:00 98.1 94 17 130/65 99 Room Air 10/11/16 16:00 97.9 88 18 112/60 97 Room Air 10/11/16 11:49 97.5 81 20 119/54 97 Room Air 10/11/16 09:41 75 121/61 I&O Intake and Output 10/11/16 10/12/16 19:00 07:00 Intake Total 480 ml 440 ml Output Total 400 ml 730 ml Balance 80 ml -290 ml Intake Oral 480 ml 440 ml Output Urine Total 300 ml 700 ml Drainage Total 30 ml Other 100 ml # Voids 1 6 # Bowel Movements 4 1 Wound: other - cait removed steristripped Drains: other - removed drain Cardiovascular: RSR Respiratory: clear Abdomen: soft, non-tender, present bowel sounds Extremities: no edema, no tenderness, no cyanosis Laboratory Tests Test 10/12/16 05:40 White Blood Count 8.0 K/UL (4.8-10.8) Red Blood Count 3.11 M/UL (4.70-6.10) L Hemoglobin 9.6 G/DL (14.2-18.0) L Hematocrit 28.2 % (42.0-52.0) L Mean Corpuscular Volume 91 FL (80-99) Mean Corpuscular Hemoglobin 31.1 PG (27.0-31.0) H Mean Corpuscular Hemoglobin Concent 34.2 G/DL (32.0-36.0) Red Cell Distribution Width 12.9 % (11.6-14.8) Platelet Count 290 K/UL (150-450) Mean Platelet Volume 6.4 FL (6.5-10.1) L Neutrophils (%) (Auto) 60.3 % (45.0-75.0) Lymphocytes (%) (Auto) 28.6 % (20.0-45.0) Monocytes (%) (Auto) 7.4 % (1.0-10.0) Eosinophils (%) (Auto) 3.2 % (0.0-3.0) H Basophils (%) (Auto) 0.5 % (0.0-2.0) Sodium Level 140 mEQ/L (135-145) Potassium Level 3.9 mEQ/L (3.4-4.9) Chloride Level 103 mEQ/L (98-107) Carbon Dioxide Level 25 mEQ/L (20-30) Anion Gap 12 (5-15) Blood Urea Nitrogen 8 mg/dL (7-23) Creatinine 0.7 mg/dL (0.7-1.2) Estimat Glomerular Filtration Rate mL/min (>60) Glucose Level 110 mg/dL (74-106) H Calcium Level 8.3 mg/dL (8.6-10.2) L Magnesium Level 1.6 mg/dL (1.7-2.5) L Total Bilirubin 0.6 mg/dL (0.0-1.2) Aspartate Amino Transf (AST/SGOT) 29 U/L (5-40) Alanine Aminotransferase (ALT/SGPT) 33 U/L (3-41) Alkaline Phosphatase 130 U/L (40-129) H Total Protein 5.3 g/dL (6.6-8.7) L Albumin 2.6 g/dL (3.5-5.2) L Globulin 2.7 g/dL Albumin/Globulin Ratio 0.9 (1.0-2.7) L Assessment Additional Comments stable post op course. OK to dc home from surgical point of view. cait removed, drain removed should follow up with us in office next week [phone] NATHANIEL GOMEZ Oct 12, 2016 09:21
--- NOTE | 2016-10-12 09:37 | Urology Progress Note ---
Assessment/Plan Assessment/Plan 1. Urinary retention. 2. Benign prostatic hypertrophy. 3. Probable neurogenic bladder. 4. Hematuria. 5. Pyuria. 6. Proteinuria. 7. Renal cyst. 8. Adrenal adenoma. 9. Urethral stricture. novak out and voiding cont flomax and proscar monitor PVR and reinsert novak PRN renal fxn stable Subjective Allergies: Coded Allergies: No Known Allergies (Unverified , 09/29/16) Subjective all noted, feels fair, voiding, no bladder discomfort Objective Last 24 Hour Vital Signs Date Time Temp Pulse Resp B/P Pulse Ox O2 Delivery O2 Flow Rate FiO2 10/12/16 08:48 78 121/48 10/12/16 08:15 97.2 78 20 121/48 97 Room Air 10/12/16 04:00 97.5 72 16 132/70 97 Room Air 10/12/16 00:19 98.1 10/12/16 00:00 97.1 76 16 121/67 96 Room Air 10/11/16 19:00 98.1 94 17 130/65 99 Room Air 10/11/16 16:00 97.9 88 18 112/60 97 Room Air 10/11/16 11:49 97.5 81 20 119/54 97 Room Air 10/11/16 09:41 75 121/61 Intake and Output 10/11/16 10/12/16 19:00 07:00 Intake Total 480 ml 440 ml Output Total 400 ml 730 ml Balance 80 ml -290 ml Intake Oral 480 ml 440 ml Output Urine Total 300 ml 700 ml Drainage Total 30 ml Other 100 ml # Voids 1 6 # Bowel Movements 4 1 Microbiology Date/Time Source Procedure Growth Status 09/29/16 09:15 Blood Blood Culture - Final Strep Species, Alpha Hemolytic Complete 10/10/16 11:30 Stool Clostridium difficile Toxin Assay - Final Complete Current Medications Medications (Trade) Dose Ordered Sig/Madina Route PRN Reason Start Time Stop Time Status Last Admin Dose Admin Acetaminophen (Tylenol) 500 mg Q6H PRN ORAL Mild Pain/Temp > 100.5 10/11/16 15:00 11/10/16 23:59 Acetaminophen/ Hydrocodone Bitart (Norris 5/325) 1 tab Q4H PRN ORAL Moderate Pain (Pain Scale 4-6) 10/11/16 10:00 10/18/16 09:59 Amlodipine Besylate (Norvasc) 5 mg DAILY ORAL 10/11/16 09:00 11/10/16 08:59 10/12/16 08:48 Aspirin (ASA) 81 mg DAILY ORAL 10/11/16 09:00 11/10/16 08:59 10/12/16 08:47 Clonidine HCl (Catapres) 0.1 mg Q6H PRN ORAL SBP > 175 10/10/16 21:00 11/09/16 20:59 Dextrose (Dextrose 50%) STAT PRN IV Hypoglycemia 10/10/16 21:15 11/09/16 21:14 Finasteride (Proscar) 5 mg DAILY ORAL 10/11/16 09:00 11/10/16 08:59 10/12/16 08:47 Heparin Sodium (Porcine) (Heparin 5000 units/ml) 5,000 units EVERY 12 HOURS SUBQ 10/10/16 22:00 11/09/16 21:59 10/12/16 08:59 Hydromorphone HCl (Dilaudid) 1 mg Q3H PRN IVP For Pain 10/10/16 21:00 10/17/16 20:59 10/11/16 23:43 Hydromorphone HCl 0.5 mg 0.5 mg Q3H PRN IVP FOR PAIN 4-6 10/11/16 09:52 10/18/16 08:29 Insulin Aspart (NovoLOG) BEFORE MEALS AND HS SUBQ 10/11/16 11:30 11/10/16 11:29 10/11/16 22:05 Magnesium Sulfate (Magnesium Sulfate 1gm/100ml) 100 ml @ 100 mls/hr Q1H IVPB 10/12/16 11:00 10/12/16 12:59 Ondansetron HCl (Zofran) 4 mg Q6H PRN IVP Nausea & Vomiting 10/11/16 15:30 11/10/16 23:59 Pantoprazole (Protonix) 40 mg DAILY ORAL 10/11/16 09:00 11/10/16 08:59 10/12/16 08:49 Potassium Chloride (K-Dur) 40 meq TWICE A DAY ORAL 10/11/16 09:00 11/10/16 08:59 10/12/16 08:48 Pravastatin Sodium (Pravachol) 20 mg BEDTIME ORAL 10/11/16 22:30 11/10/16 22:29 10/11/16 22:03 Promethazine HCl/ Codeine (Phenergan with Codeine) 5 ml Q6H PRN ORAL For Cough 10/10/16 21:15 11/09/16 21:14 Tamsulosin HCl (Flomax) 0.4 mg BEDTIME ORAL 10/11/16 22:30 11/10/16 22:29 10/11/16 22:03 Laboratory Tests 10/12/16 05:40: White Blood Count 8.0, Red Blood Count 3.11L, Hemoglobin 9.6L, Hematocrit 28.2L , Mean Corpuscular Volume 91, Mean Corpuscular Hemoglobin 31.1H, Mean Corpuscular Hemoglobin Concent 34.2, Red Cell Distribution Width 12.9, Platelet Count 290, Mean Platelet Volume 6.4L, Neutrophils (%) (Auto) 60.3, Lymphocytes ( %) (Auto) 28.6, Monocytes (%) (Auto) 7.4, Eosinophils (%) (Auto) 3.2H, Basophils (%) (Auto) 0.5, Sodium Level 140, Potassium Level 3.9, Chloride Level 103, Carbon Dioxide Level 25, Anion Gap 12, Blood Urea Nitrogen 8, Creatinine 0.7, Estimat Glomerular Filtration Rate , Glucose Level 110H, Calcium Level 8.3L , Magnesium Level 1.6L, Total Bilirubin 0.6, Aspartate Amino Transf (AST/SGOT) 29, Alanine Aminotransferase (ALT/SGPT) 33, Alkaline Phosphatase 130H, Total Protein 5.3L, Albumin 2.6L, Globulin 2.7, Albumin/Globulin Ratio 0.9L Height (Feet): 5 Height (Inches): 7.00 Weight (Pounds): 152 Objective exam stable LEX RUIZ Oct 12, 2016 09:37
--- NOTE | 2016-10-12 09:52 | General Progress Note ---
Progress Note Progress Note correction of my previous note. pt is sp laparoscopy and open cholecystectomy, not repair of perforated gastric ulcer. regardless, he is doing well and may be discharged home from surgical point of view NATHANIEL GOMEZ Oct 12, 2016 09:52
--- NOTE | 2016-10-12 10:47 | GI Progress Note ---
Assessment/Plan Problems: (1) Epigastric abdominal pain ICD Codes: R10.13 - Epigastric pain SNOMED: 21803515 (2) Choledocholithiasis ICD Codes: K80.50 - Calculus of bile duct without cholangitis or cholecystitis without obstruction SNOMED: 338554878 (3) LFTs abnormal ICD Codes: R79.89 - Other specified abnormal findings of blood chemistry SNOMED: 459227799 (4) Common bile duct (CBD) obstruction ICD Codes: K83.1 - Obstruction of bile duct SNOMED: 07236303, 85581962 (5) Abdominal pain ICD Codes: R10.9 - Unspecified abdominal pain SNOMED: 83276345 Qualifiers: Qualified Codes: R10.11 - Right upper quadrant pain Status: doing well, stable, progressing Status Narrative Discussed with Dr. Jarvis. Assessment/Plan Date of Service: 09/29/16 SURGEON: Wellington Jarvis M.D. INDICATION: Choledocholithiasis. SUMMARY FINDINGS: Status post endoscopic retrograde cholangiopancreatography sphincterotomy and stone removal. RECOMMENDATIONS: s/p open chalo diet per surgery, currently soft pain mgmt fu biopsies >> negative for malignancies repeat LFTs ppi fu labs Subjective Gastrointestinal/Abdominal: Reports: abdominal pain - improved Objective Last 24 Hour Vital Signs Date Time Temp Pulse Resp B/P Pulse Ox O2 Delivery O2 Flow Rate FiO2 10/12/16 08:48 78 121/48 10/12/16 08:15 97.2 78 20 121/48 97 Room Air 10/12/16 04:00 97.5 72 16 132/70 97 Room Air 10/12/16 00:19 98.1 10/12/16 00:00 97.1 76 16 121/67 96 Room Air 10/11/16 19:00 98.1 94 17 130/65 99 Room Air 10/11/16 16:00 97.9 88 18 112/60 97 Room Air 10/11/16 11:49 97.5 81 20 119/54 97 Room Air Intake and Output 10/11/16 10/12/16 19:00 07:00 Intake Total 480 ml 440 ml Output Total 400 ml 730 ml Balance 80 ml -290 ml Intake Oral 480 ml 440 ml Output Urine Total 300 ml 700 ml Drainage Total 30 ml Other 100 ml # Voids 1 6 # Bowel Movements 4 1 Laboratory Tests Test 10/12/16 05:40 White Blood Count 8.0 K/UL (4.8-10.8) Red Blood Count 3.11 M/UL (4.70-6.10) L Hemoglobin 9.6 G/DL (14.2-18.0) L Hematocrit 28.2 % (42.0-52.0) L Mean Corpuscular Volume 91 FL (80-99) Mean Corpuscular Hemoglobin 31.1 PG (27.0-31.0) H Mean Corpuscular Hemoglobin Concent 34.2 G/DL (32.0-36.0) Red Cell Distribution Width 12.9 % (11.6-14.8) Platelet Count 290 K/UL (150-450) Mean Platelet Volume 6.4 FL (6.5-10.1) L Neutrophils (%) (Auto) 60.3 % (45.0-75.0) Lymphocytes (%) (Auto) 28.6 % (20.0-45.0) Monocytes (%) (Auto) 7.4 % (1.0-10.0) Eosinophils (%) (Auto) 3.2 % (0.0-3.0) H Basophils (%) (Auto) 0.5 % (0.0-2.0) Sodium Level 140 mEQ/L (135-145) Potassium Level 3.9 mEQ/L (3.4-4.9) Chloride Level 103 mEQ/L (98-107) Carbon Dioxide Level 25 mEQ/L (20-30) Anion Gap 12 (5-15) Blood Urea Nitrogen 8 mg/dL (7-23) Creatinine 0.7 mg/dL (0.7-1.2) Estimat Glomerular Filtration Rate mL/min (>60) Glucose Level 110 mg/dL (74-106) H Calcium Level 8.3 mg/dL (8.6-10.2) L Magnesium Level 1.6 mg/dL (1.7-2.5) L Total Bilirubin 0.6 mg/dL (0.0-1.2) Aspartate Amino Transf (AST/SGOT) 29 U/L (5-40) Alanine Aminotransferase (ALT/SGPT) 33 U/L (3-41) Alkaline Phosphatase 130 U/L (40-129) H Total Protein 5.3 g/dL (6.6-8.7) L Albumin 2.6 g/dL (3.5-5.2) L Globulin 2.7 g/dL Albumin/Globulin Ratio 0.9 (1.0-2.7) L Height (Feet): 5 Height (Inches): 7.00 Weight (Pounds): 152 General Appearance: no apparent distress, alert Cardiovascular: normal rate Respiratory/Chest: normal breath sounds, no respiratory distress Abdominal Exam: normal bowel sounds, non tender, soft, incision site - c/d/i Objective Pre-op Diagnosis: acute cholecystitis, choledocholithiasis Procedure: laparoscopic converted to open cholecystectomy Less agitated. Ambulating with walker. Tolerating Diet. Sweta Diaz N.P. Oct 12, 2016 10:47
--- NOTE | 2016-10-12 11:19 | General Progress Note ---
Assessment/Plan Status: stable Assessment/Plan 1- Sever Sepsis: controlled 2-Abn LFT: Improving 3- Cholangitis/ acute cholecystitis 4- Abn BNP 5-UTI 5- Gi-DVT 6. HypoNatremia 7. BPH Plan: will be followed by as o/p ok to dc with [facility] Subjective ROS Limited/Unobtainable: No Constitutional: Reports: no symptoms HEENT: Reports: no symptoms Cardiovascular: Reports: no symptoms Respiratory: Reports: no symptoms Allergies: Coded Allergies: No Known Allergies (Unverified , 09/29/16) Objective Last 24 Hour Vital Signs Date Time Temp Pulse Resp B/P Pulse Ox O2 Delivery O2 Flow Rate FiO2 10/12/16 08:48 78 121/48 10/12/16 08:15 97.2 78 20 121/48 97 Room Air 10/12/16 04:00 97.5 72 16 132/70 97 Room Air 10/12/16 00:19 98.1 10/12/16 00:00 97.1 76 16 121/67 96 Room Air 10/11/16 19:00 98.1 94 17 130/65 99 Room Air 10/11/16 16:00 97.9 88 18 112/60 97 Room Air 10/11/16 11:49 97.5 81 20 119/54 97 Room Air Intake and Output 10/11/16 10/12/16 19:00 07:00 Intake Total 480 ml 440 ml Output Total 400 ml 730 ml Balance 80 ml -290 ml Intake Oral 480 ml 440 ml Output Urine Total 300 ml 700 ml Drainage Total 30 ml Other 100 ml # Voids 1 6 # Bowel Movements 4 1 Laboratory Tests 10/12/16 05:40: White Blood Count 8.0, Red Blood Count 3.11L, Hemoglobin 9.6L, Hematocrit 28.2L , Mean Corpuscular Volume 91, Mean Corpuscular Hemoglobin 31.1H, Mean Corpuscular Hemoglobin Concent 34.2, Red Cell Distribution Width 12.9, Platelet Count 290, Mean Platelet Volume 6.4L, Neutrophils (%) (Auto) 60.3, Lymphocytes ( %) (Auto) 28.6, Monocytes (%) (Auto) 7.4, Eosinophils (%) (Auto) 3.2H, Basophils (%) (Auto) 0.5, Sodium Level 140, Potassium Level 3.9, Chloride Level 103, Carbon Dioxide Level 25, Anion Gap 12, Blood Urea Nitrogen 8, Creatinine 0.7, Estimat Glomerular Filtration Rate , Glucose Level 110H, Calcium Level 8.3L , Magnesium Level 1.6L, Total Bilirubin 0.6, Aspartate Amino Transf (AST/SGOT) 29, Alanine Aminotransferase (ALT/SGPT) 33, Alkaline Phosphatase 130H, Total Protein 5.3L, Albumin 2.6L, Globulin 2.7, Albumin/Globulin Ratio 0.9L Height (Feet): 5 Height (Inches): 7.00 Weight (Pounds): 152 General Appearance: no apparent distress EENT: PERRL/EOMI Neck: supple Cardiovascular: normal rate Respiratory/Chest: lungs clear Abdomen: soft Extremities: non-tender 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
[2016-10-12 11:56] VITALS: BP 114/59
[2016-10-12] MEDS ORDERED: FINASTERIDE5 MG ORAL (12:09)
[2016-10-12] MEDS ORDERED: FLOMAX0.4 MG ORAL (12:09)
[2016-10-12] MEDS ORDERED: POTASSIUM CHLO20 ME1 ORAL (12:09)
[2016-10-12] MEDS ORDERED: NORVASC5 MG ORAL (12:09)
[2016-10-12] MEDS ORDERED: PRAVACHOL20 MG ORAL (12:09)
[2016-10-12] MEDS ORDERED: NS 275ml ONE (15:06)
[2016-10-12] MEDS ORDERED: D5NS 1000ml IV ONE (15:06)
[2016-10-12] MEDS ORDERED: Tubing IV Secondary IV ONE ×2 (15:06)
--- NOTE | 2016-10-13 21:28 | Discharge Summary ---
Discharge Summary Hospital Course Date of Admission Sep 29, 2016 at 09:42 Date of Discharge Oct 12, 2016 at 15:07 Admitting Diagnosis CHEST PAIN HPI Mike Barron is a 75 year old male who was admitted on Sep 29, 2016 at 09:42 for Chest Pain Hospital Course [id number] Discharge Discharge Disposition Patient was discharged to Home with HH Discharge Diagnoses: Fauzia Burns NP Oct 13, 2016 21:28
--- NOTE | 2016-10-14 00:39 | Discharge Summary 2 SIG ---
DATE OF ADMISSION: 09/29/2016 DATE OF DISCHARGE: 10/12/2016 CONSULTANTS: 1. Pedrito Millan M.D. 2. Wellington Jarvis M.D. 3. Mark Landry M.D. 4. Víctor Muir M.D. BRIEF HOSPITAL COURSE: The patient is 75-year-old male, with history of coronary artery disease and diabetes, presented to ED complaining of worsening pain for the past 5 days. On evaluation at ED, CT scan imaging showed evidence of cholecystitis with possible cholangitis and choledocholithiasis. He was admitted and was given IV hydration and was started on IV Zosyn. On 10/02/2016, he underwent ERCP and stone removal by Dr. Jarvis. Following day, he underwent a laparoscopic converted to open cholecystectomy by Dr. Millan. Postoperatively, he was given pain management and was placed on NPO until return of bowel function. However, he had abdominal distention and abdominal x-ray was compatible with post surgical ileus. He was encouraged ambulation. The patient was noted to be not mobilizing as much. He was encouraged ambulation and diet was slowly advanced. Dr. Muir was able to put in a Rosas catheter and was also started on Flomax as well as finasteride. He had physical therapy and occupational therapy. He developed several loose BMs. Stool was negative for C. difficile. Diet was eventually advanced and he was discharged to home with home health. FINAL DIAGNOSES: 1. Severe sepsis. 2. Abnormal liver transaminases. 3. Acute cholecystitis and cholangitis. 4. Urinary tract infection. 5. Hyponatremia. 6. Benign prostatic hypertrophy. 7. Status post endoscopic retrograde cholangiopancreatography and stone removal. 8. Status post laparoscopic to open cholecystectomy. 9. Bacteremia with alpha streptococcus, most likely biliary in source. 10. Coronary artery disease. 11. Obstructive uropathy, status post Rosas. 12. Diabetes. 13. Choledocholithiasis, status post removal. Charles Wood M.D. I have been assigned to dictate discharge summary on this account and I was not involved in the patient's management. Fauzia Burns N.P. DR: [place] JOB#: [id number] CC: SANJAY
== END 2016-10-12 15:07 | disposition home health service (06) | DRG 854 ==
LOC: EMR 09:20 → 2E 09:42 → EDBEDREQ 10:12 → 4E 10-10 20:11
PROC: 0FC98ZZ Extirpation of Matter from Common Bile Duct, Via Natural or Artificial Opening Endoscopic (ICD-10-PCS; principal; 2016-10-02 07:15)
PROC: 0W3P0ZZ Control Bleeding in Gastrointestinal Tract, Open Approach (ICD-10-PCS; 2016-10-03)
PROC: 0FT40ZZ Resection of Gallbladder, Open Approach (ICD-10-PCS; 2016-10-03)
PROC: 0DNW0ZZ Release Peritoneum, Open Approach (ICD-10-PCS; 2016-10-03)
PROC: 0FJ44ZZ Inspection of Gallbladder, Percutaneous Endoscopic Approach (ICD-10-PCS; 2016-10-03)
DX: A41.9 Sepsis, unspecified organism (principal); K80.43 Calculus of bile duct with acute cholecystitis with obstruction; K56.7 Ileus, unspecified; E87.1 Hypo-osmolality and hyponatremia; N31.9 Neuromuscular dysfunction of bladder, unspecified; N39.0 Urinary tract infection, site not specified; K91.71 Accidental puncture and laceration of a digestive system organ or structure during a digestive system procedure; R65.20 Severe sepsis without septic shock; I25.10 Atherosclerotic heart disease of native coronary artery without angina pectoris; I25.2 Old myocardial infarction; K66.0 Peritoneal adhesions (postprocedural) (postinfection); E11.9 Type 2 diabetes mellitus without complications; I10 Essential (primary) hypertension; E78.5 Hyperlipidemia, unspecified; N40.1 Benign prostatic hyperplasia with lower urinary tract symptoms; R33.8 Other retention of urine; N35.9 Urethral stricture, unspecified; D35.00 Benign neoplasm of unspecified adrenal gland; Z53.31 Laparoscopic surgical procedure converted to open procedure
CPT/HCPCS: 36415; 71010; 74020; 74177; 74330; 76000; 80048; 80053; 80061; 81003; 82248; 82550; 82553; 82962; 83605; 83690; 83735; 83880; 84100; 84443; 84484; 85007; 85025; 85610; 85730; 87040; 87181; 87493; 93005; 93306; 94003; 94150; J1815; J2180; J2250; J2405; J2710; J8499

== ENCOUNTER 2017-08-15 16:43 | Emergency (ER) | payer MEDICARE, OTHER ==
[~2017-08-15] VITALS: Ht 170.2 cm; Wt 81.6 kg
[~2017-08-15 16:43] MED LIST: ASPIR-LOW81 MG ORAL; FINASTERIDE5 MG ORAL; FLOMAX0.4 MG ORAL; METFORMIN HCL850 M1 ORAL; METOPROLOL SUCC25 MG ORAL; NORVASC5 MG ORAL; POTASSIUM CHLO20 ME1 ORAL; PRAVACHOL20 MG ORAL; PRAVASTATIN SOD20 M1 ORAL
[2017-08-15 17:00] VITALS: BP 117/58
[2017-08-15] MEDS ORDERED: Sodium Chloride 500ML 500 ML IV ONE (17:24)
[2017-08-15] MEDS: Nitroglycerin Subl 0.4mg tab SL PRN ×2 (17:33→18:02)
[2017-08-15 17:50] LABS: APPEARANCE,URINE CLEAR; BASOPHILS % (AUTO) 1.2 % (0.0-2.0); EOSINOPHILS % (AUTO) 2.7 % (0.0-3.0); KETONES,URINE NEGATIVE (NEGATIVE); LEUKOCYTE ESTERASE ,URINE NEGATIVE (NEGATIVE); LYMPHOCYTES % (AUTO) 21.8 % (20.0-45.0); MEAN CORPUSCULAR HEMOGLOBIN 28.1 PG (27.0-31.0); MEAN CORPUSCULAR HGB CONC 31.7 G/DL (32.0-36.0); MEAN CORPUSCULAR VOLUME 89 FL (80-99); MEAN PLATELET VOLUME 8.2 FL (6.5-10.1); MONOCYTES % (AUTO) 7.1 % (1.0-10.0); NEUTROPHILS % (AUTO) 67.2 % (45.0-75.0); NITRITE,URINE NEGATIVE (NEGATIVE); PH,URINE 5 (4.5-8.0); PLATELET COUNT 175 K/UL (150-450); PROTEIN,URINE NEGATIVE (NEGATIVE); RED BLOOD COUNT 4.52 M/UL (4.70-6.10); RED CELL DISTRIBUTION WIDTH 12.1 % (11.6-14.8); UROBILINOGEN,URINE NORMAL MG/DL (0.0-1.0); WHITE BLOOD COUNT 9.4 K/UL (4.8-10.8)
[2017-08-15 17:51] LABS: ANION GAP 10 mmol/L (5-15); CALCIUM 9.2 MG/DL (8.5-10.1); CARBON DIOXIDE 24 MMOL/L (21-32); CHLORIDE 101 MMOL/L (98-107); CREATININE 1.4 MG/DL (0.55-1.30); POTASSIUM 3.7 MMOL/L (3.5-5.1); SODIUM 135 MMOL/L (136-145)
[2017-08-15 18:00] VITALS: BP 105/55
[2017-08-15 18:01] LABS: ALANINE AMINOTRANSFERASE 32 U/L (12-78); ALBUMIN/GLOBULIN RATIO 0.9 (1.0-2.7); ASPARTATE AMINO TRANSFERASE 15 U/L (15-37); TOTAL PROTEIN 7.3 G/DL (6.4-8.2)
[2017-08-15 18:03] LABS: AMORPHOUS SEDIMENT,UR FEW /LPF; BACTERIA,URINE FEW /HPF; WBC,URINE 0-2 /HPF (0 - 0)
[2017-08-15] MEDS ORDERED: METOPROLOL TART25 MG ORAL ×2 (18:44→18:45)
[2017-08-15] MEDS ORDERED: ISOSORBIDE MONO30 M1 PO (18:46)
[2017-08-15] MEDS ORDERED: SIMVASTATIN40 MG ORAL (18:47)
[2017-08-15] MEDS ORDERED: NITROGLYCERIN0.4 MG SL (18:47)
[2017-08-15] MEDS ORDERED: JANUVIA25 MG ORAL (18:48)
[2017-08-15] MEDS ORDERED: OMEPRAZOLE40 M1 ORAL (18:49)
--- NOTE | 2017-08-15 20:11 | Emergency Room Report ---
History of Present Illness General Chief Complaint: Chest Pain Source: Patient Present Illness HPI 76-year-old male presents ED complaining of chest pain. X3 days. Started while at rest. Intermitted. /10. Pressure-like, nonradiating. Denies shortness of breath. No history of hypertension. States pain is radiating to his back. No other aggravating or relieving factors. Denies any other associated symptoms Allergies: Coded Allergies: No Known Allergies (Unverified , 09/29/16) Patient History Past Medical History: DM, HTN Past Surgical History: none Pertinent Family History: none Social History: Denies: smoking, alcohol use, drug use Immunizations: UTD Reviewed Nursing Documentation: PMH: Agreed, PSxH: Agreed Nursing Documentation-PMH Hx Cardiac Problems: Yes - high cholesterol Hx Hypertension: Yes Hx Diabetes: Yes Hx Cancer: No Hx Gastrointestinal Problems: No Hx Neurological Problems: No Review of Systems All Other Systems: negative except mentioned in HPI Physical Exam Vital Signs Date Time Temp Pulse Resp B/P (MAP) Pulse Ox O2 Delivery O2 Flow Rate FiO2 08/15/17 16:52 97.5 76 20 127/63 99 Room Air Sp02 EP Interpretation: reviewed, normal General Appearance: no apparent distress, alert, GCS 15, non-toxic Head: normocephalic, atraumatic Eyes: bilateral eye normal inspection, bilateral eye PERRL ENT: hearing grossly normal, normal pharynx, no angioedema, normal voice Neck: full range of motion, supple/symm/no masses Respiratory: chest non-tender, lungs clear, normal breath sounds, speaking full sentences Cardiovascular #1: regular rate, rhythm, no edema Cardiovascular #2: 2+ carotid (R), 2+ carotid (L), 2+ radial (R), 2+ radial (L) , 2+ dorsalis pedis (R), 2+ dorsalis pedis (L) Gastrointestinal: normal bowel sounds, non tender, soft, non-distended, no guarding, no rebound Rectal: deferred Genitourinary: normal inspection, no CVA tenderness Musculoskeletal: back normal, gait/station normal, normal range of motion, non- tender Neurologic: alert, oriented x3, responsive, motor strength/tone normal, sensory intact, speech normal Psychiatric: judgement/insight normal, memory normal, mood/affect normal, no suicidal/homicidal ideation Reflexes: 3+ bicep (R), 3+ bicep (L), 3+ tricep (R), 3+ tricep (L), 3+ knee (R) , 3+ knee (L) Skin: normal color, no rash, warm/dry, well hydrated Lymphatic: no adenopathy Medical Decision Making Diagnostic Impression: Primary Impression: ACS (acute coronary syndrome) Additional Impression: Renal insufficiency ER Course Hospital Course 76-year-old male presents ED complaining of chest pain Differential diagnoses include: AK/unstable angina, contusion, muscle strain, PTX, rib fracture Clinical course Patient placed on stretcher. on monitoring tech. After initial history and physical I ordered labs, EKG, chest x-ray, NTG labs reviewed- no leukocytosis, hb/hct stable, BUN/Cr minimally elevated, trop negative EKG - NSR, T-wave inversions in the lateral leads interpreted by me Chest x-ray- unremarkable Given aspirin because of insurance patient will be transferred I. I feel this is a highly complex case requiring extensive working including EKG/Rhythm strip, Xray/CT/US, Blood/urine lab work, repeat exams while in ED, and administration of strong opiates/narcotics for pain control, admission to hospital or close patient follow up. Diagnosis - ACS, renal insufficiency transferred in serious condition Labs Test 08/15/17 17:02 White Blood Count 9.4 K/UL (4.8-10.8) Red Blood Count 4.52 M/UL (4.70-6.10) Hemoglobin 12.7 G/DL (14.2-18.0) Hematocrit 40.1 % (42.0-52.0) Mean Corpuscular Volume 89 FL (80-99) Mean Corpuscular Hemoglobin 28.1 PG (27.0-31.0) Mean Corpuscular Hemoglobin Concent 31.7 G/DL (32.0-36.0) Red Cell Distribution Width 12.1 % (11.6-14.8) Platelet Count 175 K/UL (150-450) Mean Platelet Volume 8.2 FL (6.5-10.1) Neutrophils (%) (Auto) 67.2 % (45.0-75.0) Lymphocytes (%) (Auto) 21.8 % (20.0-45.0) Monocytes (%) (Auto) 7.1 % (1.0-10.0) Eosinophils (%) (Auto) 2.7 % (0.0-3.0) Basophils (%) (Auto) 1.2 % (0.0-2.0) Urine Color Pale yellow Urine Appearance Clear Urine pH 5 (4.5-8.0) Urine Specific [place] 1.010 (1.005-1.035) Urine Protein Negative (NEGATIVE) Urine Glucose (UA) 4+ (NEGATIVE) Urine Ketones Negative (NEGATIVE) Urine Occult Blood 1+ (NEGATIVE) Urine Nitrite Negative (NEGATIVE) Urine Bilirubin Negative (NEGATIVE) Urine Urobilinogen Normal MG/DL (0.0-1.0) Urine Leukocyte Esterase Negative (NEGATIVE) Urine RBC 2-4 /HPF (0 - 0) Urine WBC 0-2 /HPF (0 - 0) Urine Squamous Epithelial Cells None /LPF (NONE/OCC) Urine Amorphous Sediment Few /LPF (NONE) Urine Bacteria Few /HPF (NONE) Sodium Level 135 MMOL/L (136-145) Potassium Level 3.7 MMOL/L (3.5-5.1) Chloride Level 101 MMOL/L (98-107) Carbon Dioxide Level 24 MMOL/L (21-32) Anion Gap 10 mmol/L (5-15) Blood Urea Nitrogen 19 mg/dL (7-18) Creatinine 1.4 MG/DL (0.55-1.30) Estimat Glomerular Filtration Rate mL/min (>60) Glucose Level 285 MG/DL (74-106) Calcium Level 9.2 MG/DL (8.5-10.1) Total Bilirubin 0.5 MG/DL (0.2-1.0) Aspartate Amino Transf (AST/SGOT) 15 U/L (15-37) Alanine Aminotransferase (ALT/SGPT) 32 U/L (12-78) Alkaline Phosphatase 99 U/L (46-116) Total Creatine Kinase 103 U/L (26-308) Creatine Kinase MB 2.0 NG/ML (0.0-3.6) Creatine Kinase MB Relative Index 1.9 Troponin I 0.000 ng/mL (0.000-0.056) Pro-B-Type Natriuretic Peptide 277 pg/mL (0-125) Total Protein 7.3 G/DL (6.4-8.2) Albumin 3.5 G/DL (3.4-5.0) Globulin 3.8 g/dL Albumin/Globulin Ratio 0.9 (1.0-2.7) EKG Diagnostic Results Rate: normal Rhythm: NSR ST Segments: no acute changes ASA given to the pt in ED: Yes Rhythm Strip Diag. Results EP Interpretation: yes Rhythm: NSR, no PVC's, no ectopy Chest X-Ray Diagnostic Results Chest X-Ray Diagnostic Results : Chest X-Ray Ordered: Yes # of Views/Limited/Complete: 1 View Indication: Chest Pain EP Interpretation: Yes Interpretation: no consolidation, no effusion, no pneumothorax, no acute cardiopulmonary disease Impression: No acute disease Electronically Signed by: Electronically signed by Nain Mota MD Last Vital Signs Date Time Temp Pulse Resp B/P (MAP) Pulse Ox O2 Delivery O2 Flow Rate FiO2 08/15/17 18:02 105/55 08/15/17 18:00 98.1 73 19 94 Room Air Status: improved Disposition: XFER [facility] Condition: Serious Referrals: Charles Wood MD (PCP) NAIN MOTA M.D. Aug 15, 2017 20:11
[2017-08-15 22:07] VITALS: BP 120/60
[2017-08-15 22:20] VITALS: BP 120/60
--- NOTE | 2017-08-16 10:25 | Diagnostic Imaging Report ---
Indication: Chest Technique: XRAY Chest 1v Comparison: 09/29/2016 Findings: Heart size and mediastinal contours are within normal limits given technique. There is no focal consolidation, pneumothorax or pleural effusion. Osseous structures demonstrate no acute abnormality. Likely cholecystectomy clips in the right upper quadrant. Impression: No radiographic evidence of acute cardiopulmonary disease.
--- NOTE | 2017-08-27 19:22 | Cardiology Report ---
APPROVED REPORT EKG Measurement Heart [id number] Sinus rhythm with 1st degree AV block Inferior infarct, age undetermined Abnormal ECG
== END 2017-08-15 22:23 | disposition short-term general hospital (02) ==
LOC: EMR 17:42
DX: I24.9 Acute ischemic heart disease, unspecified (principal); N28.9 Disorder of kidney and ureter, unspecified; I10 Essential (primary) hypertension; E11.9 Type 2 diabetes mellitus without complications
CPT/HCPCS: 36415; 71010; 80053; 81003; 82550; 82553; 83880; 84484; 85025; 93005; 96360; 96372; 99285; J7040

== ENCOUNTER 2018-05-09 16:54 | Emergency (ER) | payer OTHER ==
[~2018-05-09] VITALS: Ht 172.7 cm; Wt 77.1 kg
[~2018-05-09 16:54] MED LIST changes: +ISOSORBIDE MONO30 M1 PO; +JANUVIA25 MG ORAL; +METOPROLOL TART25 MG ORAL; +NITROGLYCERIN0.4 MG SL; +OMEPRAZOLE40 M1 ORAL; +SIMVASTATIN40 MG ORAL
[2018-05-09] MEDS ORDERED: Insulin (17:07)
[2018-05-09 17:21] VITALS: BP 151/69
[2018-05-09] MEDS ORDERED: traMADol 50mg tab ORAL ONE (17:30)
--- NOTE | 2018-05-09 17:30 | Emergency Room Report ---
History of Present Illness General Chief Complaint: Neck Pain Source: Patient Present Illness [facility] The patient is a pleasant 76-year-old gentleman who presents with left neck pain posterior to the last 1 month. Pain with movement. He has tingling weakness in the left upper extremity. His PCP Dr. Wood prescribed Meloxicam and baclofen for the pain. However the pain has not improved. No previous history of trauma. He denies chest pain. Denies abdominal pain. Denies headache. Pain is constant. Moderately severe. Worse with head turning and palpation. RAdiates to right trapezius . I reviewed previous electronic medical record. This patient has a history of dyslipidemia and diabetes coronary artery disease and myocardial infarction Allergies: Coded Allergies: No Known Allergies (Unverified , 09/29/16) Patient History Past Surgical History: other - reviewed per EMR Social History: Denies: smoking - former smoker Reviewed Nursing Documentation: PMH: Agreed; PSxH: Agreed Nursing Documentation-PMH Past Medical History: No History, Except For Hx Cardiac Problems: Yes - high cholesterol Hx Hypertension: Yes Hx Pacemaker: No Hx Asthma: No Hx COPD: No Hx Diabetes: Yes Hx Cancer: No Hx Gastrointestinal Problems: No Hx Dialysis: No History Of Psychiatric Problem: No Hx Neurological Problems: No Hx Cerebrovascular Accident: No Hx Seizures: No Review of Systems Constitutional: Denies: fever, malaise Cardiovascular: Denies: chest pain Gastrointestinal: Denies: abdominal pain Musculoskeletal: Denies: back pain All Other Systems: negative except mentioned in HPI Physical Exam Vital Signs Date Time Temp Pulse Resp B/P (MAP) Pulse Ox O2 Delivery O2 Flow Rate FiO2 05/09/18 17:01 98.2 62 16 151/69 93 Room Air 98.2 Sp02 EP Interpretation: reviewed, normal General Appearance: normal inspection, well appearing, no apparent distress, alert, GCS 15, non-toxic Head: normocephalic, atraumatic Eyes: bilateral eye normal inspection ENT: hearing grossly normal, normal pharynx, no angioedema, normal voice Neck: full range of motion, supple, no bony tend, supple/symm/no masses, tender lateral Respiratory: chest non-tender, lungs clear, normal breath sounds, no rhonchi, no respiratory distress, speaking full sentences Cardiovascular #1: normal peripheral pulses, regular rate, rhythm, no murmur, normal capillary refill Gastrointestinal: normal bowel sounds, non tender, soft, non-distended, no guarding, no rebound Rectal: deferred Genitourinary: normal inspection Musculoskeletal: back normal, gait/station normal, normal range of motion, non- tender, calf tenderness Neurologic: alert, oriented x3, responsive, motor strength/tone normal, sensory intact, speech normal, other - 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 Francisco Barron presents with neck pain and stiffness due to cervical DDD. Pain did improve with tramadol although the medication made him feel dizzy. He pleasantly asked me to prescribed tramadol. I provided 15 tab prescription. Other X-Ray Diagnostic Results Other X-Ray Diagnostic Results : # of Views/Limited Vs Complete: 3 View EP Interpretation: Yes Impression: Other - degenerative disc disease Electronically Signed by: This image has been electronically signed by Dr. Gely Interiano Last Vital Signs Date Time Temp Pulse Resp B/P (MAP) Pulse Ox O2 Delivery O2 Flow Rate FiO2 05/09/18 17:21 98.2 63 16 151/69 93 Room Air 98.2 Scripts Tramadol Hcl* (ULTRAM*) 50 Mg Tablet 50 MG ORAL Q6H PRN for For Pain, #15 TAB 0 Refills Prov: Gely Interiano MD 05/09/18 Gely Interiaon MD May 09, 2018 17:30
[2018-05-09] MEDS ORDERED: TRAMADOL HCL50 MG ORAL (17:34)
[2018-05-09 17:59] VITALS: BP 146/68
[2018-05-09 18:51] VITALS: BP 127/70
--- NOTE | 2018-05-10 10:22 | Diagnostic Imaging Report ---
Indication: Neck Pain Findings: 3 views of the cervical spine were obtained. C4-5 disc is moderately narrowed. Endplate spurs noted within the mid portion of the thoracic spine at multiple levels. Facet hypertrophy also noted. No soft tissue swelling is identified. IMPRESSION: No acute injury appreciated. Moderate degenerative disease
== END 2018-05-09 18:55 | disposition home or self-care (01) ==
LOC: EMR 17:25
DX: M50.10 Cervical disc disorder with radiculopathy, unspecified cervical region (principal); E11.9 Type 2 diabetes mellitus without complications; I10 Essential (primary) hypertension; I25.10 Atherosclerotic heart disease of native coronary artery without angina pectoris; I25.2 Old myocardial infarction; Z87.891 Personal history of nicotine dependence
CPT/HCPCS: 72040; 99283